=== PATIENT | male | born 1950 | race Caucasian/White ===

== ENCOUNTER 2017-05-14 16:01 | Emergency (ER) | payer MEDICARE ==
[2017-05-14 16:06] VITALS: RESP 18
[2017-05-14] MEDS ORDERED: traMADol 50 MG TAB PO STA (16:48)
[2017-05-14] MEDS ORDERED: METHOCARBAMOL 500 MG TAB PO STA (16:50)
--- NOTE | 2017-05-14 17:10 | ED ---
Fall HPI - General Chief Complaint: Fall Stated Complaint: Fall-Head Pain Time Seen by Provider: 05/14/17 16:42 Source: patient Mode of arrival: wheelchair Limitations: no limitations - History of Present Illness Initial Comments: This a 66-year-old male presents emergency Department chief complaint of fall, neck pain, head pain. Patient states that he was in the bathroom states he went go fix a sock in his knee gave out which is happens on occasion. Patient states that he fell backwards striking the wall with his had states he did reported that in the drywall. Patient denies loss conscious he does complain of mild headache and neck pain. He states he felt some cracking his neck and went down his back. He states he did have some left hip pain but states that has resolved and states he is able to ambulate with no difficulty and no pain. Patient's her prior fusion of the cervical spine is concerned that there may be something abnormal. He denies any weakness of his upper extremities denies any paresthesias denies chest pain, shortness breath. - Related Data Home Medications Medication Instructions Recorded Confirmed Aspirin 81 mg PO HS 03/18/14 11/15/15 Atorvastatin Calcium [Lipitor] 80 mg PO HS 03/18/14 11/15/15 Enalapril/Hydrochlorothiazide 2 tab PO QAM 03/18/14 11/15/15 [Vaseretic 10-25 mg] FLUoxetine HCL [PROzac] 40 mg PO QAM 03/18/14 11/15/15 Metoprolol Succinate (ER) [Toprol 50 mg PO QAM 03/18/14 11/15/15 XL] Previous Rx's Medication Instructions Recorded metFORMIN HCL [Glucophage] 500 mg PO BID #0 03/20/14 HYDROcodone/APAP 7.5-325MG [[place] 1 - 2 each PO Q6HR PRN #90 tab 11/17/15 7.5-325] Famotidine [Pepcid] 20 mg PO BID #1 tablet 11/18/15 INSULIN LISPRO (humaLOG) [humaLOG] 0 unit SQ ACHS vial 11/18/15 INSULIN LISPRO (humaLOG) [humaLOG] 17 unit SQ AC-TID #0 vial 11/18/15 Insulin Detemir [Levemir] 36 unit SQ BID #0 vial 11/18/15 Sennosides-Docusate Sodium 2 each PO HS tab 11/18/15 [Senokot-S] Tamsulosin [Flomax] 0.4 mg PO PC-SUPPER cap.er.24h 11/18/15 Warfarin [Coumadin] 2.5 mg PO DAILY #30 tab 11/18/15 Methocarbamol [Robaxin] 500 mg PO TID PRN #15 tab 05/14/17 Allergies Allergy/AdvReac Type Severity Reaction Status Date / Time codeine Allergy Severe Vomiting Verified 05/14/17 16:06 albuterol AdvReac Rapid Verified 05/14/17 16:06 Heart Rate Penicillins AdvReac Rash/Hives Verified 05/14/17 16:06 Review of Systems ROS Statement: Those systems with pertinent positive or pertinent negative responses have been documented in the HPI. ROS Other: All systems not noted in ROS Statement are negative. Past Medical History Past Medical History: Coronary Artery Disease (CAD), Cancer, Chest Pain / Angina , Heart Failure, Diabetes Mellitus, Hyperlipidemia, Hypertension, Myocardial Infarction ([place]), Pneumonia, Prostate Disorder, Thyroid Disorder Additional Past Medical History / Comment(s): Morbid obesity, coronary artery disease, diabetes mellitus, degenerative arthritis, varicose veins, skin cancer , gout, retinal disease Last Myocardial Infarction Date:: unknown History of Any Multi-Drug Resistant Organisms: None Reported Past Surgical History: Adenoidectomy, Bariatric Surgery, Heart Catheterization With Stent, Tonsillectomy Additional Past Surgical History / Comment(s): vasectomy, lap band, neck fusion , cysts removed from testicles x 2, lypoma removed rt side of abdomen, 11-15-15 TOTAL RT KNEE, SKIN CA REMOVED. Past Anesthesia/Blood Transfusion Reactions: No Reported Reaction Date of Last Stent Placement:: 01/2012 Past Psychological History: Anxiety, Depression Smoking Status: Former smoker Past Alcohol Use History: Occasional Past Drug Use History: None Reported - Past Family History Father Family Medical History: Deep Vein Thrombosis (DVT) Mother Family Medical History: Deep Vein Thrombosis (DVT) Brother(s) Family Medical History: Cancer, Deep Vein Thrombosis (DVT) General Exam Limitations: physical limitation General appearance: alert, in no apparent distress Head exam: Present: atraumatic, normocephalic, normal inspection Eye exam: Present: normal appearance, PERRL, EOMI. Absent: scleral icterus, conjunctival injection, periorbital swelling ENT exam: Present: normal exam, normal oropharynx, mucous membranes moist, TM's normal bilaterally, normal external ear exam Neck exam: Present: normal inspection, tenderness (Mild tenderness), full ROM, other (Patient was not in c-collar in the room at this time, patient was placed in c-collar at this time). Absent: meningismus, lymphadenopathy Respiratory exam: Present: normal lung sounds bilaterally. Absent: respiratory distress, wheezes, rales, rhonchi, stridor Cardiovascular Exam: Present: regular rate, normal rhythm, normal heart sounds. Absent: systolic murmur, diastolic murmur, rubs, gallop, clicks Extremities exam: Present: normal inspection, full ROM, normal capillary refill. Absent: tenderness, pedal edema, joint swelling, calf tenderness Back exam: Present: full ROM. Absent: tenderness, paraspinal tenderness, vertebral tenderness Neurological exam: Present: alert, oriented X3, CN II-XII intact, reflexes normal. Absent: motor sensory deficit Skin exam: Present: warm, dry, intact, normal color. Absent: rash Course Vital Signs 05/14/17 16:04 Temperature 98.1 F Pulse Rate 74 Respiratory 18 Rate Blood Pressure 151/66 O2 Sat by Pulse 97 Oximetry - Reevaluation(s) Reevaluation #1: 05/14/17 18:02 C-collar was removed at CT shows no acute fracture Medical Decision Making - Medical Decision Making 66-year-old male presents emergency from for treatment fall. Patient concerned about his cervical fusion. CT does not show any intracranial bleed or change in the cervical fusion. Patient we discharged at this time he has a normal neurological exam advised to follow-up one to days for recheck and return for any worsening symptoms. Patient did complain of some left hip pain but states that has improved x-ray was offered though declined. - Lab Data Lab Results 05/14/17 Range/Units 17:20 POC Glucose (mg/dL) 245 H (75-99) mg/dL POC Glu Fire Extinguisher Inspector ID MorenoChitra Disposition Clinical Impression: Fall, Neck pain, Head injury Disposition: HOME SELF-CARE Condition: Stable Instructions: Head Injury (ED) Additional Instructions: Please return to the Emergency Department if symptoms worsen or any other concerns. Prescriptions: Methocarbamol [Robaxin] 500 mg PO TID PRN #15 tab PRN Reason: muscle spasms Referrals: Mckenna Tinoco MD [Primary Care Provider] - 1-2 days Time of Disposition: 18:09
[2017-05-14] MEDS ORDERED: ALPRAZolam 0.5 MG TAB PO STA (17:20)
[2017-05-14 17:22] LABS: Glucose,Whole Blood 245 mg/dL (75-99)
--- NOTE | 2017-05-14 18:01 | CT ---
EXAMINATION TYPE: CT brain a[facility] DATE OF EXAM: 05/14/2017 COMPARISON: NONE HISTORY: Fall today with head and neck pain CT DLP: 2217.3 mGycm Automated exposure control for dose reduction was used. TECHNIQUE: CT scan of the head and cervical spine are performed without contrast. FINDINGS: There is mild cerebral cortical atrophy. There is no mass effect nor midline shift. There is no sign of intracranial hemorrhage. The calvarium is intact. There is mucosal thickening in the a nterior ethmoid air cells. There is plate with screws fusing anteriorly the cervical spine from C3 to C6. Vertebra have normal a lignment. There is narrowing at C6-7 disc space with spurring. Facet joints appear intact. I see no f ocal bone destruction. The skull base appears intact. There is narrowing at C2-3 disc space. IMPRESSION: Mild cerebral atrophy. No acute intracranial abnormality. Previous cervical spine fusion surgery. No acute abnormality. Spondylotic changes.
[2017-05-14 18:20] VITALS: BP 141/72; PULSE 63; TEMP 97.9
== END 2017-05-14 18:20 | disposition home or self-care (01) ==
LOC: EC 16:01
DX: S09.90XA Unspecified injury of head, initial encounter (principal); M54.2 Cervicalgia; M54.9 Dorsalgia, unspecified; E78.5 Hyperlipidemia, unspecified; I11.0 Hypertensive heart disease with heart failure; I50.9 Heart failure, unspecified; I25.10 Atherosclerotic heart disease of native coronary artery without angina pectoris; M19.90 Unspecified osteoarthritis, unspecified site; M10.9 Gout, unspecified; N42.9 Disorder of prostate, unspecified; F32.9 Major depressive disorder, single episode, unspecified; F41.9 Anxiety disorder, unspecified; E66.01 Morbid (severe) obesity due to excess calories; I25.2 Old myocardial infarction; Z87.891 Personal history of nicotine dependence; Z79.82 Long term (current) use of aspirin; Z79.899 Other long term (current) drug therapy; Z88.0 Allergy status to penicillin; Z88.5 Allergy status to narcotic agent; Z88.8 Allergy status to other drugs, medicaments and biological substances; Z98.1 Arthrodesis status; Z85.828 Personal history of other malignant neoplasm of skin; Z98.890 Other specified postprocedural states; Z68.42 Body mass index [BMI] 45.0-49.9, adult; W01.198A Fall on same level from slipping, tripping and stumbling with subsequent striking against other object, initial encounter; Y92.002 Bathroom of unspecified non-institutional (private) residence as the place of occurrence of the external cause; Y93.89 Activity, other specified
CPT/HCPCS: 36415; 70450; 72125; 99284

== ENCOUNTER 2019-05-31 23:24 | Inpatient (IN) | payer MEDICARE ==
[2019-05-31] MEDS ORDERED: NITROGLYCERIN SL TABS 0.4 MG TAB SUBLINGUAL STA (23:57)
[2019-05-31] MEDS ORDERED: ASPIRIN 81 MG PO STA (23:57)
--- NOTE | 2019-06-01 00:23 | ED ---
General Adult HPI - General Chief complaint: Shortness of Breath Stated complaint: Sore Throat Time Seen by Provider: 05/31/19 23:56 Source: patient, family Mode of arrival: wheelchair Limitations: no limitations - History of Present Illness Initial comments: Patient is 68-year-old male with history of myocardial infarction is presenting to the emergency department with a chief complaint of shortness of breath sore throat and chest pain. Patient reports sore throat that began about 3 days ago and is gradually increasing severity. Patient denies drooling or swelling of the face. He does report sinus congestion over the same period. Patient also reports shortness of breath that has not one for a long time although he states it has gradually increased in severity over the last few days. Patient reports dyspnea on exertion. He also is reporting some left-sided chest pain that is more sharp in nature without any radiation. He states the pain occurred multiple times throughout the day however it is not there right now upon occurrence, he states he had some lightheadedness and dizziness but denies nausea vomiting or episode of diaphoresis. Patient denies COPD or asthma or smoking. She denies night sweats fevers or chills. Patient does report a nonproductive cough over the last few days. - Related Data Home Medications Medication Instructions Recorded Confirmed Aspirin 81 mg PO HS 03/18/14 11/15/15 Atorvastatin Calcium [Lipitor] 80 mg PO HS 03/18/14 11/15/15 Enalapril/Hydrochlorothiazide 2 tab PO QAM 03/18/14 11/15/15 [Vaseretic 10-25 mg] FLUoxetine HCL [PROzac] 40 mg PO QAM 03/18/14 11/15/15 Metoprolol Succinate (ER) [Toprol 50 mg PO QAM 03/18/14 11/15/15 XL] Previous Rx's Medication Instructions Recorded metFORMIN HCL [Glucophage] 500 mg PO BID #0 03/20/14 HYDROcodone/APAP 7.5-325MG [[place] 1 - 2 each PO Q6HR PRN #90 tab 11/17/15 7.5-325] Famotidine [Pepcid] 20 mg PO BID #1 tablet 11/18/15 INSULIN LISPRO (humaLOG) [humaLOG] 0 unit SQ ACHS vial 11/18/15 INSULIN LISPRO (humaLOG) [humaLOG] 17 unit SQ AC-TID #0 vial 11/18/15 Insulin Detemir (Levemir) [Levemir] 36 unit SQ BID #0 vial 11/18/15 Sennosides-Docusate Sodium 2 each PO HS tab 11/18/15 [Senokot-S] Tamsulosin [Flomax] 0.4 mg PO PC-SUPPER cap.er.24h 11/18/15 Warfarin [Coumadin] 2.5 mg PO DAILY #30 tab 11/18/15 Methocarbamol [Robaxin] 500 mg PO TID PRN #15 tab 05/14/17 Allergies Allergy/AdvReac Type Severity Reaction Status Date / Time codeine Allergy Severe Vomiting Verified 05/31/19 23:54 albuterol AdvReac Rapid Verified 05/31/19 23:54 Heart Rate Penicillins AdvReac Rash/Hives Verified 05/31/19 23:54 Review of Systems ROS Statement: Those systems with pertinent positive or pertinent negative responses have been documented in the HPI. ROS Other: All systems not noted in ROS Statement are negative. Past Medical History Past Medical History: Coronary Artery Disease (CAD), Cancer, Chest Pain / Angina, Heart Failure, Diabetes Mellitus, Hyperlipidemia, Hypertension, Myocardial Infarction ([place]), Pneumonia, Prostate Disorder, Thyroid Disorder Additional Past Medical History / Comment(s): Morbid obesity, coronary artery disease, diabetes mellitus, degenerative arthritis, varicose veins, skin cancer, gout, retinal disease Last Myocardial Infarction Date:: unknown History of Any Multi-Drug Resistant Organisms: None Reported Past Surgical History: Adenoidectomy, Bariatric Surgery, Heart Catheterization With Stent, Tonsillectomy Additional Past Surgical History / Comment(s): vasectomy, lap band, neck fusion, cysts removed from testicles x 2, lypoma removed rt side of abdomen, 11-15-15 TOTAL RT KNEE, SKIN CA REMOVED. Past Anesthesia/Blood Transfusion Reactions: No Reported Reaction Date of Last Stent Placement:: 01/2012 Past Psychological History: Anxiety, Depression Smoking Status: Former smoker Past Alcohol Use History: Occasional Past Drug Use History: None Reported - Past Family History Father Family Medical History: Deep Vein Thrombosis (DVT) Mother Family Medical History: Deep Vein Thrombosis (DVT) Brother(s) Family Medical History: Cancer, Deep Vein Thrombosis (DVT) General Exam Limitations: no limitations General appearance: alert, in no apparent distress, obese Head exam: Present: atraumatic, normocephalic, normal inspection Eye exam: Present: normal appearance, PERRL, EOMI Pupils: Present: normal accommodation ENT exam: Present: normal exam, mucous membranes moist. Absent: normal oropharynx (Tonsil erythema but no exudates) Neck exam: Present: normal inspection, full ROM, lymphadenopathy Respiratory exam: Present: normal lung sounds bilaterally Cardiovascular Exam: Present: regular rate, normal rhythm, normal heart sounds Extremities exam: Present: normal inspection, full ROM, normal capillary refill, other (+2 ulnar and radial pulses bilaterally.) Back exam: Present: normal inspection, full ROM Neurological exam: Present: alert, oriented X3 Psychiatric exam: Present: normal affect, normal mood Skin exam: Present: warm, dry, intact, normal color Course Vital Signs 05/31/19 06/01/19 06/01/19 23:48 00:09 01:30 Temperature 98.7 F Pulse Rate 90 85 Respiratory 24 20 20 Rate Blood Pressure 125/64 149/84 O2 Sat by Pulse 93 L 96 Oximetry Medical Decision Making - Medical Decision Making Patient is 68-year-old male with history of myocardial infarction presenting to emergency Department with a chief complaint of shortness of breath, sore throat and chest pain. On exam patient does have erythematous tonsils but no exudates. Patient is present with atypical chest pain with typical features. EKG compared to the last one and is the same. Left axis deviation with no ST changes. EKG shows mild atelectasis at the left lung base. Upon initial arrival patient given Nitropaste and aspirin. A reevaluation patient reports the chest pain is resolved. Initial troponin is negative. Patient obese, diabetic, hypertension and hyperlipidemia with positive family history of cardiac vascular disease. No smoker. He also states the shortness of breath remy s resolved after he was administered 2 L of oxygen. Patient has a heart score of 5. Patient will be admitted for observation. Case discussed with Dr. Lara. - Lab Data Result diagrams: 06/01/19 00:20 06/01/19 00:20 Lab Results 06/01/19 06/01/19 06/01/19 Range/Units 00:20 00:20 00:20 WBC 15.5 H (3.8-10.6) k/uL RBC 4.54 (4.30-5.90) m/uL Hgb 14.1 (13.0-17.5) gm/dL Hct 40.8 (39.0-53.0) % MCV 89.7 (80.0-100.0) fL MCH 31.0 (25.0-35.0) pg MCHC 34.6 (31.0-37.0) g/dL RDW 14.1 (11.5-15.5) % Plt Count 251 (150-450) k/uL Neutrophils % 79 % Lymphocytes % 10 % Monocytes % 7 % Eosinophils % 2 % Basophils % 0 % Neutrophils # 12.2 H (1.3-7.7) k/uL Lymphocytes # 1.6 (1.0-4.8) k/uL Monocytes # 1.1 H (0-1.0) k/uL Eosinophils # 0.2 (0-0.7) k/uL Basophils # 0.0 (0-0.2) k/uL PT 10.7 (9.0-12.0) sec INR 1.0 (<1.2) APTT 25.0 (22.0-30.0) sec D-Dimer 0.38 (<0.60) mg/L FEU Sodium 135 L (137-145) mmol/L Potassium 4.6 (3.5-5.1) mmol/L Chloride 99 (98-107) mmol/L Carbon Dioxide 27 (22-30) mmol/L Anion Gap 9 mmol/L BUN 31 H (9-20) mg/dL Creatinine 0.73 (0.66-1.25) mg/dL Est GFR (CKD-EPI)AfAm >90 (>60 ml/min/1.73 sqM) Est GFR (CKD-EPI)NonAf >90 (>60 ml/min/1.73 sqM) Glucose 152 H (74-99) mg/dL Calcium 9.8 (8.4-10.2) mg/dL Magnesium 1.9 (1.6-2.3) mg/dL Total Bilirubin 1.6 H (0.2-1.3) mg/dL AST 25 (17-59) U/L ALT 24 (21-72) U/L Alkaline Phosphatase 80 (38-126) U/L Troponin I (0.000-0.034) ng/mL Total Protein 7.1 (6.3-8.2) g/dL Albumin 3.8 (3.5-5.0) g/dL Group A Strep Rapid (Negative) 06/01/19 06/01/19 Range/Units 00:20 00:30 WBC (3.8-10.6) k/uL RBC (4.30-5.90) m/uL Hgb (13.0-17.5) gm/dL Hct (39.0-53.0) % MCV (80.0-100.0) fL MCH (25.0-35.0) pg MCHC (31.0-37.0) g/dL RDW (11.5-15.5) % Plt Count (150-450) k/uL Neutrophils % % Lymphocytes % % Monocytes % % Eosinophils % % Basophils % % Neutrophils # (1.3-7.7) k/uL Lymphocytes # (1.0-4.8) k/uL Monocytes # (0-1.0) k/uL Eosinophils # (0-0.7) k/uL Basophils # (0-0.2) k/uL PT (9.0-12.0) sec INR (<1.2) APTT (22.0-30.0) sec D-Dimer (<0.60) mg/L FEU Sodium (137-145) mmol/L Potassium (3.5-5.1) mmol/L Chloride (98-107) mmol/L Carbon Dioxide (22-30) mmol/L Anion Gap mmol/L BUN (9-20) mg/dL Creatinine (0.66-1.25) mg/dL Est GFR (CKD-EPI)AfAm (>60 ml/min/1.73 sqM) Est GFR (CKD-EPI)NonAf (>60 ml/min/1.73 sqM) Glucose (74-99) mg/dL Calcium (8.4-10.2) mg/dL Magnesium (1.6-2.3) mg/dL Total Bilirubin (0.2-1.3) mg/dL AST (17-59) U/L ALT (21-72) U/L Alkaline Phosphatase (38-126) U/L Troponin I <0.012 (0.000-0.034) ng/mL Total Protein (6.3-8.2) g/dL Albumin (3.5-5.0) g/dL Group A Strep Rapid Negative (Negative) Disposition Clinical Impression: Shortness of breath on exertion, Chest pain Disposition: ADMITTED IP TO THIS HOSP Condition: Stable Instructions (If sedation given, give patient instructions): Angina (ED) Additional Instructions: Patient will be admitted Is patient prescribed a controlled substance at d/c from ED?: No Referrals: Sixto Vernon MD [Primary Care Provider] - 1-2 days Time of Disposition: 02:13
[2019-06-01] MEDS ORDERED: NITROGLYCERIN OINT 1 INCH/GM PACKET TOPICAL STA (00:33)
[2019-06-01 00:40] LABS: Basophils % (A) 0 %; Eosinophils # (A) 0.2 k/uL (0-0.7); Eosinophils % (A) 2 %; HCT 40.8 % (39.0-53.0); HGB 14.1 gm/dL (13.0-17.5); Lymphocytes # (A) 1.6 k/uL (1.0-4.8); Lymphocytes % (A) 10 %; MCHC 34.6 g/dL (31.0-37.0); MCV 89.7 fL (80.0-100.0); Mean Platelet Volume 7.8; Monocytes # (A) 1.1 k/uL (0-1.0); Monocytes % (A) 7 %; Neutrophils # (A) 12.2 k/uL (1.3-7.7); Neutrophils % (A) 79 %; Platelet Count 251 k/uL (150-450); RBC 4.54 m/uL (4.30-5.90); RDW 14.1 % (11.5-15.5); WBC 15.5 k/uL (3.8-10.6)
[2019-06-01 00:44] LABS: D-Dimer 0.38 mg/L FEU (<0.60); Prothrombin Time 10.7 sec (9.0-12.0)
[2019-06-01 00:49] LABS: ALT 24 U/L (21-72); AST 25 U/L (17-59); African American GFR (CKD) >90 (>60 ml/min/1.73 sqM); Albumin 3.8 g/dL (3.5-5.0); Alkaline Phosphatase 80 U/L (38-126); Anion Gap 9 mmol/L; Blood Urea Nitrogen 31 mg/dL (9-20); Calcium 9.8 mg/dL (8.4-10.2); Carbon Dioxide 27 mmol/L (22-30); Chloride 99 mmol/L (98-107); Glucose 152 mg/dL (74-99); Magnesium 1.9 mg/dL (1.6-2.3); Non-African American GFR(CKD) >90 (>60 ml/min/1.73 sqM); Potassium 4.6 mmol/L (3.5-5.1); Sodium 135 mmol/L (137-145); Total Bilirubin 1.6 mg/dL (0.2-1.3); Total Protein 7.1 g/dL (6.3-8.2)
--- NOTE | 2019-06-01 00:51 | XR ---
EXAMINATION TYPE: XR chest 2V DATE OF EXAM: 06/01/2019 COMPARISON: 11/16/2015 HISTORY: Chest pain TECHNIQUE: Frontal and lateral views of the chest are obtained. FINDINGS: There is some linear density at the left lung base. Heart size is normal. There is no hear t failure. There is no pleural effusion. There are chest leads. Bony thorax is intact. IMPRESSION: Mild subsegmental atelectasis left lung base. Normal heart. No significant change compar ed to old exam.
[2019-06-01] MEDS ORDERED: ALPRAZolam 0.5 MG TAB PO STA (03:39)
[2019-06-01] MEDS ORDERED: traMADol 50 MG TAB PO STA (03:39)
[2019-06-01] MEDS ORDERED: metFORMIN 500 MG TAB PO STA (03:40)
[2019-06-01] MEDS ORDERED: NITROGLYCERIN SL TABS 0.4 MG TAB SUBLINGUAL PRN ×2 (04:03→09:16)
[2019-06-01] MEDS ORDERED: HYDROcodone/APAP 7.5-325MG 1 EACH TAB PO PRN (04:08)
[2019-06-01] MEDS ORDERED: METHOCARBAMOL 500 MG TAB PO PRN (04:08)
[2019-06-01 04:43] LABS: Glucose,Whole Blood 194 mg/dL (75-99)
[2019-06-01 06:55] LABS: Glucose,Whole Blood 180 mg/dL (75-99)
[2019-06-01] MEDS: INSULIN ASPART (NovoLOG) 100 UNIT/ML VIAL SQ SCH ×7 (08:41→22:48)
[2019-06-01] MEDS: HYDROCHLOROTHIAZIDE 25 MG TAB PO SCH (08:51)
[2019-06-01] MEDS: METOPROLOL SUCCINATE (ER) 50 MG TAB.ER.24H PO SCH (08:52)
[2019-06-01] MEDS: LISINOPRIL 20 MG TAB PO SCH (08:52)
[2019-06-01] MEDS ORDERED: FLUoxetine HCL 20 MG CAP PO SCH (09:00)
[2019-06-01] MEDS ORDERED: FAMOTIDINE 20 MG TAB PO SCH (09:00)
[2019-06-01] MEDS ORDERED: tiZANidine 4 MG TAB PO PRN (09:16)
[2019-06-01] MEDS ORDERED: INSULIN ASPART (NovoLOG) 100 UNIT/ML VIAL SQ ONE (09:21)
--- NOTE | 2019-06-01 11:14 | P.HPIM ---
History of Present Illness H&P Date: 06/01/19 Chief Complaint: shortness of breath Patient is 68-year-old male patient of Dr. Vernon with history of myocardial infarction and coronary artery disease status post 3 cardiac stent, diabetes mellitus type 2 insulin requiring, hypertension, hyperlipidemia, osteoarthritis, gout, skin cancer, morbid obesity status post lap band, obstructive sleep apnea on CPAP, remote history of tobacco use, recurrent depression. Patient also follows with from pulmonary medicine and Dr. Wise from endocrinology. He last saw Dr. Meléndez in the office in November and had echocardiogram done at that time. Patient states that yesterday he became real weak while he was sitting. He was complaining of a sore throat for 3-4 days. No fever or chills. He did have some sweats. He got up to walk from the living room to the kitchen and became very dizzy with difficulty breathing and he checked his oxygen saturation which it dropped down to 82%. He continued to not feel well and decided around 10 AM to come into the hospital for evaluation. He also experienced left-sided chest pain that did not seem to be related to activity. He has had shortness of breath with ambulation for the last couple of days. He complains of a cough. No calf tenderness. He complains of backache. Patient presented to [facility] emergency center for evaluation. He was afebrile, heart rate 90, blood pressure 125/64, pulse ox 93% on room air. WBC 15.5, hemoglobin 14.1. D-dimer 0.38. Electrolytes essentially normal, creatinine 0.73, total bilirubin 1.6 and other liver function tests within normal limits. Blood sugar 152. Troponin negative. Group A strep rapid screen negative. Patient was started on Nitropaste and aspirin. Shortness of breath resolved with oxygen. Patient placed on the cardiac stepdown unit and cardiology consult requested. Repeat troponin negative. Consult added for cardiology and pulmonary medicine. Review of Systems Constitutional: Reports sweats, Denies chills, Denies fever Eyes: denies blurred vision, denies pain Ears, nose, mouth and throat: Reports sore throat, Reports vertigo, Denies dysphagia, Denies nasal congestion, Denies nasal discharge Cardiovascular: Reports chest pain, Reports decreased exercise tolerance, Repo rts dyspnea on exertion, Reports leg edema, Reports shortness of breath, Denies edema, Denies lightheadedness, Denies syncope Respiratory: Reports cough, Reports dyspnea, Reports sleep apnea, Denies excessive sputum, Denies hemoptysis, Denies home oxygen Gastrointestinal: Denies abdominal pain, Denies diarrhea, Denies loss of appetite, Denies nausea, Denies vomiting Genitourinary: Denies dysuria, Denies urinary retention Musculoskeletal: Reports muscle weakness, Denies frequent falls, Denies gait dysfunction, Denies myalgias Integumentary: Denies pruritus, Denies rash, Denies wounds Neurological: Denies change in mentation, Denies change in speech, Denies numbness, Denies weakness Psychiatric: Denies anxiety, Denies depression Endocrine: Denies fatigue, Denies weight change Past Medical History Past Medical History: Coronary Artery Disease (CAD), Cancer, Chest Pain / Angina, Heart Failure, Diabetes Mellitus, Hyperlipidemia, Hypertension, Myocardi al Infarction ([place]), Pneumonia, Prostate Disorder, Thyroid Disorder Additional Past Medical History / Comment(s): Morbid obesity, coronary artery disease, diabetes mellitus, degenerative arthritis, varicose veins, skin cancer, gout, retinal disease Last Myocardial Infarction Date:: unknown History of Any Multi-Drug Resistant Organisms: None Reported Past Surgical History: Adenoidectomy, Bariatric Surgery, Heart Catheterization With Stent, Tonsillectomy Additional Past Surgical History / Comment(s): vasectomy, lap band, neck fusion, cysts removed from testicles x 2, lypoma removed rt side of abdomen, 11-14-16 TOTAL RT KNEE, SKIN CA REMOVED. Past Anesthesia/Blood Transfusion Reactions: No Reported Reaction Date of Last Stent Placement:: 01/2012 Past Psychological History: Anxiety, Depression Smoking Status: Former smoker Past Alcohol Use History: Occasional Additional Past Alcohol Use History / Comment(s): Patient was a smoker of one pack per day for 33 years. He denies any alcohol use or abuse. He uses CPAP with nasal pillow for obstructive sleep apnea. Past Drug Use History: None Reported - Past Family History Father Family Medical History: Deep Vein Thrombosis (DVT) Additional Family Medical History / Comment(s): Father at age 76 from stroke. Mother Family Medical History: Deep Vein Thrombosis (DVT) Additional Family Medical History / Comment(s): Mother at age 83 from a stroke with history of valvular heart disease. Brother(s) Family Medical History: Cancer, Deep Vein Thrombosis (DVT) Additional Family Medical History / Comment(s): Patient has 1 brother that at age 83 from lung cancer with history of smoking. Sister(s) Additional Family Medical History / Comment(s): Patient has 1 sister at age 83 from Alzheimer's dementia. Daughter(s) Additional Family Medical History / Comment(s): Patient has 2 daughters with no major medical problems. Medications and Allergies Home Medications Medication Instructions Recorded Confirmed Type Aspirin 81 mg PO HS 03/18/14 11/15/15 History Atorvastatin Calcium [Lipitor] 80 mg PO HS 03/18/14 11/15/15 History Enalapril/Hydrochlorothiazide 2 tab PO QAM 03/18/14 11/15/15 History [Vaseretic 10-25 mg] Metoprolol Succinate (ER) [Toprol 50 mg PO QAM 03/18/14 11/15/15 History XL] Tamsulosin [Flomax] 0.4 mg PO PC-SUPPER cap.er.24h 11/18/15 Rx ALPRAZolam [Xanax] 0.5 mg PO BID PRN 06/01/19 06/01/19 History Canagliflozin [Invokana] 300 mg PO QAM 06/01/19 06/01/19 History FLUoxetine HCL [PROzac] 20 mg PO BID 06/01/19 06/01/19 History Fluticasone Nasal [place] [Flonase 2 spray EA NOSTRIL DAILY 06/01/19 06/01/19 History Nasal [place]] INSULIN LISPRO (humaLOG) [humaLOG] 10 unit SQ AC-TID 06/01/19 06/01/19 History Insulin Detemir (Levemir) [Levemir] 30 unit SQ HS 06/01/19 06/01/19 History Meloxicam 15 mg PO DAILY 06/01/19 06/01/19 History Nitroglycerin Sl Tabs [Nitrostat] 0.4 mg SUBLINGUAL Q5M PRN 06/01/19 06/01/19 History Pioglitazone [Actos] 15 mg PO HS 06/01/19 06/01/19 History metFORMIN HCL [Glucophage] 1,000 mg PO BID 06/01/19 06/01/19 History tiZANidine HCL 2 mg PO DAILY PRN 06/01/19 06/01/19 History traMADol HCL 50 mg PO BID 06/01/19 06/01/19 History Allergies Allergy/AdvReac Type Severity Reaction Status Date / Time codeine AdvReac Severe Vomiting Verified 06/01/19 08:58 albuterol AdvReac Rapid Verified 06/01/19 08:58 Heart Rate Penicillins AdvReac Rash/Hives Verified 06/01/19 08:58 Physical Exam Vitals: Vital Signs Temp Pulse Pulse Resp BP BP Pulse Ox 06/01/19 06:48 98.4 F 66 20 136/61 92 L 06/01/19 03:47 86 20 109/68 97 06/01/19 01:30 85 20 149/84 96 06/01/19 00:09 20 05/31/19 23:48 98.7 F 90 24 125/64 93 L Intake and Output 05/31/19 06/01/19 06/01/19 22:59 06:59 14:59 Other: Weight 154.221 kg Gen: This is a 68-year-old morbidly obese male. Patient is resting in bed and appears to be comfortable and in no acute distress. HEENT: Head is atraumatic, normocephalic. Pupils equal, round. Sclerae is anicteric. NECK: Supple. No JVD. No lymphadenopathy. No thyromegaly. LUNGS: Decreased lung sounds but clear to auscultation. No wheezes or rhonchi. No intercostal retractions. HEART: Regular rate and rhythm. No murmur. ABDOMEN: Soft. Bowel sounds are present. No masses. No tenderness. EXTREMITIES: No pedal edema. No calf tenderness. NEUROLOGICAL: Patient is awake, alert and oriented x3. Cranial nerves 2 through 12 are grossly intact. Results CBC & Chem 7: 06/01/19 00:20 06/01/19 00:20 Labs: Abnormal Lab Results - Last 24 Hours (Table) 06/01/19 06/01/19 06/01/19 Range/Units 00:20 00:20 04:41 WBC 15.5 H (3.8-10.6) k/uL Neutrophils # 12.2 H (1.3-7.7) k/uL Monocytes # 1.1 H (0-1.0) k/uL Sodium 135 L (137-145) mmol/L BUN 31 H (9-20) mg/dL Glucose 152 H (74-99) mg/dL POC Glucose (mg/dL) 194 H (75-99) mg/dL Total Bilirubin 1.6 H (0.2-1.3) mg/dL 06/01/19 Range/Units 06:53 WBC (3.8-10.6) k/uL Neutrophils # (1.3-7.7) k/uL Monocytes # (0-1.0) k/uL Sodium (137-145) mmol/L BUN (9-20) mg/dL Glucose (74-99) mg/dL POC Glucose (mg/dL) 180 H (75-99) mg/dL Total Bilirubin (0.2-1.3) mg/dL Thrombosis Risk Factor Assmnt - DVT/VTE Prophylaxis DVT/VTE Prophylaxis: Pharmacologic Prophylaxis ordered Assessment and Plan Plan: 1. Acute on chronic hypoxic respiratory failure most likely secondary to obstructive sleep apnea and obesity hypoventilation syndrome and possible pulmonary hypertension. Continue oxygen therapy. Patient uses CPAP at night or whenever sleeping. Consult with Dr. Kay. 2. Chest pain and shortness of breath. Normal troponins. Cardiology consult. Continue aspirin 81 mg daily, Lipitor 80 mg at bedtime, metoprolol succinate 50 mg daily, nitroglycerin sublingual. Echocardiogram, repeat troponin, lipid panel. 3. Sore throat with leukocytosis. Strep screen has been negative. Throat culture in progress. Influenza testing. 4. History of coronary artery disease with coronary stenting. Continue as in #1. 3. Diabetes mellitus type 2, insulin requiring. 4. Hypertension. Continue hydrochlorothiazide 50 mg daily, lisinopril 40 mg daily, Toprol-XL. 5. Hyperlipidemia. Continue statin. Nexium diabetes mellitus type 2, insulin requiring. Continue Levemir 30 units at bedtime, Humalog scale. Metformin is on hold and invoke onto is not available in the hospital. Continue Actos 15 mg at bedtime. 6. Seasonal ALLERGIES. Continue Flonase. 7. Benign prostatic hypertrophy. Continue Flomax or 0.4 mg daily. Continue Xanax or 0.5 mg twice daily as needed, Prozac 20 mg twice daily. 8. Chronic back pain. Continue tramadol 50 mg twice daily, Zanaflex 2 mg daily as needed. 9. DVT prophylaxis. Heparin subcu. 10. GI prophylaxis. Pepcid. Patient will be admitted to the hospital for a minimum of 2 night stay. Discharge plan: Most likely return home. PT and OT added. Impression and plan of care have been directed as dictated by the signing physician. Lexii Browne nurse practitioner acting as scribe for signing physician.
--- NOTE | 2019-06-01 11:28 | P.CRDCN ---
History of Present Illness Consult date: 06/01/19 Requesting physician: Alejandro Lambert Reason for Consult (text): chest pain Chief complaint: sore throat, SOB, fatigue, low O2 sat History of present illness: This is a pleasant 68-year-old gentleman who follows with Dr. Meléndez in the office. Has a history of CAD with prior stenting in the past, hypertension, hyperlipidemia, diabetes. Presented to the emergency department with complaints of 4-5 day history of sore throat with shortness of breath on exertion and fatigue. He was prompted to the present emergency department after checking his oxygen saturation on his cell phone and was repeatedly getting readings in the 82-84% range. His x-ray and admission showed mild subsegmental atelectasis left base, normal heart, no significant change compared to old exam. EKG showed normal sinus rhythm with left axis deviation with no ST-T wave changes indicative of ischemia. After presentation to the emergency department patient incidentally mentioned some intermittent left-sided chest discomfort lasting less than 1 minute at a time but occurring several times an hour random in occurrence with no aggravating or relieving factors and no associated symptoms. Troponins have been negative 2, d-dimer was negative, white blood cell count was elevated at 15,500, BUN 31, creatinine 0.73. Upon examination, patient is resting comfortably in bed. Continues to complain of significant shortness of breath and fatigue with exertion as well as significant sore throat making it difficult to swallow. Influenza and strep swabs have been negative. Vital signs have been stable with O2 sat 96% on 2 L. Past Medical History Past Medical History: Coronary Artery Disease (CAD), Cancer, Chest Pain / Angina, Heart Failure, Diabetes Mellitus, Hyperlipidemia, Hypertension, Myocardial Infarction ([place]), Pneumonia, Prostate Disorder, Thyroid Disorder Additional Past Medical History / Comment(s): Morbid obesity, coronary artery disease, diabetes mellitus, degenerative arthritis, varicose veins, skin cancer, gout, retinal disease Last Myocardial Infarction Date:: unknown History of Any Multi-Drug Resistant Organisms: None Reported Past Surgical History: Adenoidectomy, Bariatric Surgery, Heart Catheterization With Stent, Tonsillectomy Additional Past Surgical History / Comment(s): vasectomy, lap band, neck fusion, cysts removed from testicles x 2, lypoma removed rt side of abdomen, 11-15-15 TOTAL RT KNEE, SKIN CA REMOVED. Past Anesthesia/Blood Transfusion Reactions: No Reported Reaction Date of Last Stent Placement:: 01/2012 Past Psychological History: Anxiety, Depression Smoking Status: Former smoker Past Alcohol Use History: Occasional Additional Past Alcohol Use History / Comment(s): Patient was a smoker of one pack per day for 33 years. He denies any alcohol use or abuse. He uses CPAP with nasal pillow for obstructive sleep apnea. Past Drug Use History: None Reported - Past Family History Father Family Medical History: Deep Vein Thrombosis (DVT) Additional Family Medical History / Comment(s): Father at age 76 from stroke. Mother Family Medical History: Deep Vein Thrombosis (DVT) Additional Family Medical History / Comment(s): Mother at age 83 from a stroke with history of valvular heart disease. Brother(s) Family Medical History: Cancer, Deep Vein Thrombosis (DVT) Additional Family Medical History / Comment(s): Patient has 1 brother that at age 83 from lung cancer with history of smoking. Sister(s) Additional Family Medical History / Comment(s): Patient has 1 sister at age 83 from Alzheimer's dementia. Daughter(s) Additional Family Medical History / Comment(s): Patient has 2 daughters with no major medical problems. Medications and Allergies Home Medications Medication Instructions Recorded Confirmed Type Aspirin 81 mg PO HS 03/18/14 06/01/19 History Atorvastatin Calcium [Lipitor] 80 mg PO HS 03/18/14 06/01/19 History Enalapril/Hydrochlorothiazide 2 tab PO QAM 03/18/14 06/01/19 History [Vaseretic 10-25 mg] Metoprolol Succinate (ER) [Toprol 50 mg PO QAM 03/18/14 06/01/19 History XL] Tamsulosin [Flomax] 0.4 mg PO PC-SUPPER cap.er.24h 11/18/15 06/01/19 Rx ALPRAZolam [Xanax] 0.5 mg PO BID PRN 06/01/19 06/01/19 History Canagliflozin [Invokana] 300 mg PO QAM 06/01/19 06/01/19 History FLUoxetine HCL [PROzac] 20 mg PO BID 06/01/19 06/01/19 History Fluticasone Nasal [place] [Flonase 2 spray EA NOSTRIL DAILY 06/01/19 06/01/19 History Nasal [place]] INSULIN LISPRO (humaLOG) [humaLOG] 10 unit SQ AC-TID 06/01/19 06/01/19 History Insulin Detemir (Levemir) [Levemir] 30 unit SQ HS 06/01/19 06/01/19 History Meloxicam 15 mg PO DAILY 06/01/19 06/01/19 History Nitroglycerin Sl Tabs [Nitrostat] 0.4 mg SUBLINGUAL Q5M PRN 06/01/19 06/01/19 History Pioglitazone [Actos] 15 mg PO HS 06/01/19 06/01/19 History metFORMIN HCL [Glucophage] 1,000 mg PO BID 06/01/19 06/01/19 History tiZANidine HCL 2 mg PO DAILY PRN 06/01/19 06/01/19 History traMADol HCL 50 mg PO BID 06/01/19 06/01/19 History Allergies Allergy/AdvReac Type Severity Reaction Status Date / Time codeine AdvReac Severe Vomiting Verified 06/01/19 08:58 albuterol AdvReac Rapid Verified 06/01/19 08:58 Heart Rate Penicillins AdvReac Rash/Hives Verified 06/01/19 08:58 Physical Exam Vitals: Vital Signs Temp Pulse Pulse Resp BP BP Pulse Ox 06/01/19 11:03 98.8 F 63 16 106/62 96 06/01/19 10:30 96 06/01/19 08:00 98.7 F 88 20 122/81 90 L 06/01/19 06:48 98.4 F 66 20 136/61 92 L 06/01/19 03:47 86 20 109/68 97 06/01/19 01:30 85 20 149/84 96 06/01/19 00:09 20 05/31/19 23:48 98.7 F 90 24 125/64 93 L Intake and Output 05/31/19 06/01/19 06/01/19 22:59 06:59 14:59 Intake Total 420 Balance 420 Intake: Oral 420 Other: Weight 154.221 kg PHYSICAL EXAMINATION: HEENT: Head is atraumatic, normocephalic. Pupils equal, round. Neck is supple. There is no elevated jugular venous pressure. HEART EXAMINATION: Heart sounds regular, S1 and S2 normal. No murmur or gallop heard. CHEST EXAMINATION: Lungs are clear to auscultation and precussion. No chest wall tenderness is noted on palpation or with deep breathing. ABDOMEN: Soft, obese, nontender. Bowel sounds are heard. No organomegaly noted. EXTREMITIES: 2+ peripheral pulses with no evidence of peripheral edema and no calf tenderness noted. NEUROLOGIC patient is awake, alert and oriented x3. . Results 06/01/19 00:20 06/01/19 00:20 Cardiac Enzymes 06/01/19 06/01/19 06/01/19 Range/Units 00:20 00:20 05:38 AST 25 (17-59) U/L Troponin I <0.012 <0.012 (0.000-0.034) ng/mL Coagulation 06/01/19 Range/Units 00:20 PT 10.7 (9.0-12.0) sec APTT 25.0 (22.0-30.0) sec CBC 06/01/19 Range/Units 00:20 WBC 15.5 H (3.8-10.6) k/uL RBC 4.54 (4.30-5.90) m/uL Hgb 14.1 (13.0-17.5) gm/dL Hct 40.8 (39.0-53.0) % Plt Count 251 (150-450) k/uL Comprehensive Metabolic Panel 06/01/19 Range/Units 00:20 Sodium 135 L (137-145) mmol/L Potassium 4.6 (3.5-5.1) mmol/L Chloride 99 (98-107) mmol/L Carbon Dioxide 27 (22-30) mmol/L BUN 31 H (9-20) mg/dL Creatinine 0.73 (0.66-1.25) mg/dL Glucose 152 H (74-99) mg/dL Calcium 9.8 (8.4-10.2) mg/dL AST 25 (17-59) U/L ALT 24 (21-72) U/L Alkaline Phosphatase 80 (38-126) U/L Total Protein 7.1 (6.3-8.2) g/dL Albumin 3.8 (3.5-5.0) g/dL Current Medications Generic Name Dose Route Start Last Admin Trade Name Freq PRN Reason Stop Dose Admin Alprazolam 0.5 mg 06/01/19 09:16 Xanax PO BID PRN Anxiety Aspirin 81 mg 06/01/19 21:00 Aspirin PO HS [facility] Atorvastatin Calcium 80 mg 06/01/19 21:00 Lipitor PO HS [facility] Famotidine 20 mg 06/02/19 09:00 Pepcid PO DAILY [facility] Fluoxetine HCl 20 mg 06/02/19 09:00 Prozac PO BID [facility] Fluticasone Propionate 2 spray 06/02/19 09:00 Flonase Nasal [place] EA NOSTRIL DAILY [facility] Heparin Sodium (Porcine) 5,000 unit 06/01/19 21:00 Heparin SQ Q12HR [facility] Hydrochlorothiazide 50 mg 06/01/19 09:00 06/01/19 08:51 Hydrodiuril PO 50 mg QAM [facility] Administration Insulin Aspart 0 unit 06/01/19 07:30 06/01/19 09:26 Novolog SQ 4 unit ACHS [facility] Administration Protocol Insulin Aspart 10 unit 06/01/19 12:30 Novolog SQ AC-TID [facility] Insulin Detemir 30 unit 06/01/19 21:00 Levemir SQ HS [facility] Lisinopril 40 mg 06/01/19 09:00 06/01/19 08:52 Zestril PO 40 mg QAM [facility] Administration Metoprolol Succinate 50 mg 06/01/19 09:00 06/01/19 08:52 Toprol Xl PO 50 mg QAM [facility] Administration Nitroglycerin 0.4 mg 06/01/19 09:16 Nitrostat SUBLINGUAL Q5M PRN Chest Pain Pioglitazone HCl 15 mg 06/01/19 21:00 Actos PO HS [facility] Tamsulosin HCl 0.4 mg 06/01/19 18:30 Flomax PO PC-SUPPER [facility] Tizanidine HCl 2 mg 06/01/19 09:16 Zanaflex PO DAILY PRN Muscle Spasm Tramadol HCl 50 mg 06/01/19 21:00 Ultram PO BID [facility] Intake and Output 05/31/19 06/01/19 06/01/19 22:59 06:59 14:59 Intake Total 420 Balance 420 Intake: Oral 420 Other: Weight 154.221 kg 06/01/19 00:20 06/01/19 00:20 EKG Interpretations (text) Sinus rhythm Assessment and Plan Assessment: #1 symptoms of sore throat, shortness of breath and fatigue, likely secondary to viral infection #2 atypical chest pain #3 history of CAD with prior stenting #4 hypertension #5 hyperlipidemia #6 diabetes Plan: From cardiology's perspective, we will obtain a 2-D echo with Doppler. Symptoms of chest pain are atypical. Medications were reviewed and we will continue the same. Increase activity. Depending on patient's symptoms and echocardiogram results patient will likely be discharged tomorrow and will keep his follow-up with Dr. Meléndez on the 17th of this month. [employer] note has been reviewed, I agree with a documented findings and plan of care. Patient was seen and examined.
[2019-06-01 11:52] LABS: Glucose,Whole Blood 166 mg/dL (75-99)
--- NOTE | 2019-06-01 14:30 | P.CNPUL ---
History of Present Illness Consult date: 06/01/19 Reason for consult: dyspnea, cough, COPD, hypoxemia, obstructive sleep apnea Chief complaint: Shortness of breath with cough started with cold upper respiratory 5 days a History of present illness: This is a 68-year-old male with the history of obstructive sleep apnea not on oxygen but using CPAP on a regular basis well to me from the office he also has a prior medical history significant for NE he presented into emergency department with 5 day history of shortness of breath sore throat and chest pain. Patient reports sore throat that began about 3 days ago and is gradually increasing severity. Patient denies drooling or swelling of the face. He does report sinus congestion over the same period. Patient also reports shortness of breath that has not one for a long time although he states it has gradually in creased in severity over the last few days. Patient reports dyspnea on exertion. He also is reporting some left-sided chest pain that is more sharp in nature without any radiation. He states the pain occurred multiple times throughout the day however it is not there right now upon occurrence, he states he had some lightheadedness and dizziness but denies nausea vomiting or episode of diaphoresis. Patient denies COPD or asthma or smoking. She denies night sweats fevers or chills. Patient does report a nonproductive cough over the last few days. Patient oxygen saturation was low has been on supplemental oxygen ranging about 88-90%, which is new however he is feeling better today reviewed. Chest prior to discharge from [facility], HIS CHEST X-RAY SUGGESTIVE OF DEVELOPING PNEUMONIA AND LEFT LOWER LOBE, HE HAS BEEN EVALUATED BY CARDIOLOGY PLAN IS FOR ECHOCARDIOGRAM TOMORROW Review of Systems All systems: negative Past Medical History Past Medical History: Coronary Artery Disease (CAD), Cancer, Chest Pain / Angina, Heart Failure, Diabetes Mellitus, Hyperlipidemia, Hypertension, Myocardial Infarction (NE), Pneumonia, Prostate Disorder, Thyroid Disorder Additional Past Medical History / Comment(s): Morbid obesity, coronary artery disease, diabetes mellitus, degenerative arthritis, varicose veins, skin cancer, gout, retinal disease Last Myocardial Infarction Date:: unknown History of Any Multi-Drug Resistant Organisms: None Reported Past Surgical History: Adenoidectomy, Bariatric Surgery, Heart Catheterization With Stent, Tonsillectomy Additional Past Surgical History / Comment(s): vasectomy, lap band, neck fusion, cysts removed from testicles x 2, lypoma removed rt side of abdomen, 11-15-15 TOTAL RT KNEE, SKIN CA REMOVED. Past Anesthesia/Blood Transfusion Reactions: No Reported Reaction Date of Last Stent Placement:: 01/2012 Past Psychological History: Anxiety, Depression Smoking Status: Former smoker Past Alcohol Use History: Occasional Additional Past Alcohol Use History / Comment(s): Patient was a smoker of one pack per day for 33 years. He denies any alcohol use or abuse. He uses CPAP with nasal pillow for obstructive sleep apnea. Past Drug Use History: None Reported - Past Family History Father Family Medical History: Deep Vein Thrombosis (DVT) Additional Family Medical History / Comment(s): Father at age 76 from stroke. Mother Family Medical History: Deep Vein Thrombosis (DVT) Additional Family Medical History / Comment(s): Mother at age 83 from a stroke with history of valvular heart disease. Brother(s) Family Medical History: Cancer, Deep Vein Thrombosis (DVT) Additional Family Medical History / Comment(s): Patient has 1 brother that at age 83 from lung cancer with history of smoking. Sister(s) Additional Family Medical History / Comment(s): Patient has 1 sister at age 83 from Alzheimer's dementia. Daughter(s) Additional Family Medical History / Comment(s): Patient has 2 daughters with no major medical problems. Medications and Allergies Home Medications Medication Instructions Recorded Confirmed Type Aspirin 81 mg PO HS 03/18/14 06/01/19 History Atorvastatin Calcium [Lipitor] 80 mg PO HS 03/18/14 06/01/19 History Enalapril/Hydrochlorothiazide 2 tab PO QAM 03/18/14 06/01/19 History [Vaseretic 10-25 mg] Metoprolol Succinate (ER) [Toprol 50 mg PO QAM 03/18/14 06/01/19 History XL] Tamsulosin [Flomax] 0.4 mg PO PC-SUPPER cap.er.24h 11/18/15 06/01/19 Rx ALPRAZolam [Xanax] 0.5 mg PO BID PRN 06/01/19 06/01/19 History Canagliflozin [Invokana] 300 mg PO QAM 06/01/19 06/01/19 History FLUoxetine HCL [PROzac] 20 mg PO BID 06/01/19 06/01/19 History Fluticasone Nasal [place] [Flonase 2 spray EA NOSTRIL DAILY 06/01/19 06/01/19 History Nasal [place]] INSULIN LISPRO (humaLOG) [humaLOG] 10 unit SQ AC-TID 06/01/19 06/01/19 History Insulin Detemir (Levemir) [Levemir] 30 unit SQ HS 06/01/19 06/01/19 History Meloxicam 15 mg PO DAILY 06/01/19 06/01/19 History Nitroglycerin Sl Tabs [Nitrostat] 0.4 mg SUBLINGUAL Q5M PRN 06/01/19 06/01/19 History Pioglitazone [Actos] 15 mg PO HS 06/01/19 06/01/19 History metFORMIN HCL [Glucophage] 1,000 mg PO BID 06/01/19 06/01/19 History tiZANidine HCL 2 mg PO DAILY PRN 06/01/19 06/01/19 History traMADol HCL 50 mg PO BID 06/01/19 06/01/19 History Allergies Allergy/AdvReac Type Severity Reaction Status Date / Time codeine AdvReac Severe Vomiting Verified 06/01/19 08:58 albuterol AdvReac Rapid Verified 06/01/19 08:58 Heart Rate Penicillins AdvReac Rash/Hives Verified 06/01/19 08:58 Physical Exam Vitals: Vital Signs Temp Pulse Pulse Resp BP BP Pulse Ox 06/01/19 11:03 97.6 F 75 18 135/65 96 06/01/19 10:30 96 06/01/19 08:00 98.7 F 88 20 122/81 90 L 06/01/19 06:48 98.4 F 66 20 136/61 92 L 06/01/19 03:47 86 20 109/68 97 06/01/19 01:30 85 20 149/84 96 06/01/19 00:09 20 05/31/19 23:48 98.7 F 90 24 125/64 93 L Intake and Output 05/31/19 06/01/19 06/01/19 22:59 06:59 14:59 Intake Total 430 Balance 430 Intake: IV 10 0.9 10 Oral 420 Other: Weight 154.221 kg - Constitutional General appearance: average body habitus, disheveled, morbidly obese, no acute distress - EENT Eyes: EOMI, PERRLA, normal appearance ENT: hearing grossly normal Ears: bilateral: normal - Neck Neck: normal ROM Carotids: bilateral: upstroke normal - Respiratory Respiratory: bilateral: CTA - Cardiovascular Rhythm: regular Heart sounds: normal: S1, S2 - Gastrointestinal General gastrointestinal: normal bowel sounds, soft - Integumentary Integumentary: normal turgor - Neurologic Neurologic: CNII-XII intact - Musculoskeletal Musculoskeletal: gait normal, generalized weakness, strength equal bilaterally - Psychiatric Psychiatric: A&O x's 3, appropriate affect, intact judgment & insight Results - Laboratory Findings CBC and BMP: 06/01/19 00:20 06/01/19 00:20 PT/INR, D-dimer PT 10.7 sec (9.0-12.0) 06/01/19 00:20 INR 1.0 (<1.2) 06/01/19 00:20 D-Dimer 0.38 mg/L FEU (<0.60) 06/01/19 00:20 Abnormal lab findings: Abnormal Labs 06/01/19 06/01/19 06/01/19 00:20 00:20 04:41 WBC 15.5 H Neutrophils # 12.2 H Monocytes # 1.1 H Sodium 135 L BUN 31 H Glucose 152 H POC Glucose (mg/dL) 194 H Total Bilirubin 1.6 H 06/01/19 06/01/19 06:53 11:50 WBC Neutrophils # Monocytes # Sodium BUN Glucose POC Glucose (mg/dL) 180 H 166 H Total Bilirubin - Diagnostic Findings Chest x-ray: report reviewed, image reviewed (Finding as noted above) Assessment and Plan Assessment: Left lower lobe pneumonia Sepsis related left lower lobe pneumonia Acute hypoxic respiratory failure Obstructive sleep apnea Morbid obesity Uncontrolled diabetes Plan: IV antibiotics Supplemental oxygen As needed breathing treatments Increase activity as tolerated Continued DVT and peptic ulcer disease prophylaxis Time with Patient: Greater than 30
[2019-06-01 16:55] LABS: Glucose,Whole Blood 147 mg/dL (75-99)
[2019-06-01] MEDS: AZITHROMYCIN 500 MG TAB PO SCH (16:59)
[2019-06-01] MEDS: TAMSULOSIN 0.4 MG CAP.ER.24H PO SCH (17:00)
[2019-06-01] MEDS: INSULIN DETEMIR (LEVEMIR) 100 UNIT/ML SYR SQ SCH (17:33)
[2019-06-01] MEDS ORDERED: WARFARIN 2.5 MG TAB PO SCH (18:00)
[2019-06-01 18:43] VITALS: RESP 20
[2019-06-01 20:18] LABS: Glucose,Whole Blood 62 mg/dL (75-99)
[2019-06-01 20:41] LABS: Glucose,Whole Blood 68 mg/dL (75-99)
[2019-06-01] MEDS ORDERED: INSULIN DETEMIR (LEVEMIR) 100 UNIT/ML SYR SQ SCH (21:00)
[2019-06-01] MEDS ORDERED: SENNOSIDES-DOCUSATE SODIUM 1 EACH TAB PO SCH (21:00)
[2019-06-01 21:01] LABS: Glucose,Whole Blood 93 mg/dL (75-99)
[2019-06-01] MEDS: ATORVASTATIN 80 MG TAB PO SCH (22:14)
[2019-06-01] MEDS: PIOGLITAZONE 15 MG TAB PO SCH (22:14)
[2019-06-01] MEDS: ASPIRIN 81 MG PO SCH (22:14)
[2019-06-01] MEDS: traMADol 50 MG TAB PO SCH (22:15)
[2019-06-01] MEDS: ALPRAZolam 0.5 MG TAB PO PRN (22:17)
[2019-06-01] MEDS: FLUTICASONE 50MCG/SPRAY NASAL 16GM EA NOSTRIL SCH (22:46)
[2019-06-01] MEDS: HEPARIN SODIUM,PORCINE 5,000 UNIT/ML 1 ML VIAL SQ SCH (22:48)
[2019-06-02 06:05] LABS: HCT 40.4 % (39.0-53.0); HGB 13.3 gm/dL (13.0-17.5); MCH 30.7 pg (25.0-35.0); MCV 92.9 fL (80.0-100.0); Mean Platelet Volume 7.9; Platelet Count 268 k/uL (150-450); RBC 4.35 m/uL (4.30-5.90); RDW 14.1 % (11.5-15.5); WBC 14.8 k/uL (3.8-10.6)
[2019-06-02 06:16] LABS: African American GFR (CKD) >90 (>60 ml/min/1.73 sqM); Anion Gap 10 mmol/L; Blood Urea Nitrogen 31 mg/dL (9-20); Calcium 9.8 mg/dL (8.4-10.2); Carbon Dioxide 30 mmol/L (22-30); Chloride 94 mmol/L (98-107); Cholesterol 120 mg/dL (<200); Glucose 258 mg/dL (74-99); HDL Cholesterol 35 mg/dL (40-60); LDL Cholesterol,Calculated 71 mg/dL (0-99); Non-African American GFR(CKD) 80 (>60 ml/min/1.73 sqM); Potassium 4.5 mmol/L (3.5-5.1); Sodium 134 mmol/L (137-145); Triglycerides 69 mg/dL (<150)
[2019-06-02 06:32] LABS: Glucose,Whole Blood 242 mg/dL (75-99)
[2019-06-02] MEDS: INSULIN ASPART (NovoLOG) 100 UNIT/ML VIAL SQ SCH ×7 (06:53→21:01)
[2019-06-02] MEDS ORDERED: ASPIRIN 325 MG TAB PO SCH (09:00)
[2019-06-02] MEDS: METOPROLOL SUCCINATE (ER) 50 MG TAB.ER.24H PO SCH (09:18)
[2019-06-02] MEDS: LISINOPRIL 20 MG TAB PO SCH (09:18)
[2019-06-02] MEDS: HYDROCHLOROTHIAZIDE 25 MG TAB PO SCH (09:18)
[2019-06-02] MEDS: FLUoxetine HCL 20 MG CAP PO SCH ×2 (09:18→21:01)
[2019-06-02] MEDS: AZITHROMYCIN 500 MG TAB PO SCH (09:19)
[2019-06-02] MEDS: traMADol 50 MG TAB PO SCH ×2 (09:19→21:00)
--- NOTE | 2019-06-02 09:20 | XR ---
EXAMINATION TYPE: XR chest 1V portable DATE OF EXAM: 06/02/2019 COMPARISON: 06/01/2019 HISTORY: Abnormal x-ray TECHNIQUE: Single frontal view of the chest is obtained. FINDINGS: Stable left lower lobe infiltrate. There is elevation of the hemidiaphragms. Arthropathy o f the shoulders. No overt failure or pneumothorax. IMPRESSION: Stable left lower lobe infiltrate.
[2019-06-02] MEDS: HEPARIN SODIUM,PORCINE 5,000 UNIT/ML 1 ML VIAL SQ SCH ×2 (09:21→21:02)
[2019-06-02] MEDS: FAMOTIDINE 20 MG TAB PO SCH (09:21)
[2019-06-02] MEDS ORDERED: BENZOCAINE/MENTHOL LOZENG 1 EACH LOZENGE MUCOUS MEM PRN (10:24)
--- NOTE | 2019-06-02 11:01 | ECHOF ---
Referral Reason:chest pain, SOB MEASUREMENTS -------- HEIGHT: 172.7 cm WEIGHT: 147.9 kg BP: 139/67 IVSd: 1.6 cm (0.6 - 1.1) LVIDd: 3.1 cm (3.9 - 5.3) LVPWd: 1.4 cm (0.6 - 1.1) IVSs: 1.9 cm LVIDs: 1.4 cm LVPWs: 1.7 cm Ao Diam: 3.5 cm (2.0 - 3.7) AV Cusp: 2.0 cm (1.5 - 2.6) LA Diam: 3.4 cm (2.7 - 3.8) MV EXCURSION: 11.063 mm (> 18.000) MV EF SLOPE: 45 mm/s (70 - 150) EPSS: 2.0 cm MV E Deep: 0.48 m/s MV DecT: 215 ms MV A Deep: 0.64 m/s MV E/A Ratio: 0.75 RAP: 5.00 mmHg RVSP: 9.94 mmHg FINDINGS -------- Sinus rhythm with extra systolic beats. This was a technically difficult study with suboptimal views. The left ventricular size is normal. There is moderate concentric left ventricular hypertrophy. O verall left ventricular systolic function is low-normal with, an EF between 50 - 55 %. The right ventricle is normal in size. The left atrial size is normal. The right atrial size is normal. Lumason used The aortic valve was not well visualized. The mitral valve was not well visualized. There is trace mitral regurgitation. The tricuspid valve was not well visualized. Mild tricuspid regurgitation present. Right ventricu lar systolic pressure is normal at < 35 mmHg. The pulmonic valve was not well visualized. The aortic root size is normal. IVC Not well visulized. There is no pericardial effusion. CONCLUSIONS -------- 1. Sinus rhythm with extra systolic beats. 2. This was a technically difficult study with suboptimal views. 3. The left ventricular size is normal. 4. There is moderate concentric left ventricular hypertrophy. 5. Overall left ventricular systolic function is low-normal with, an EF between 50 - 55 %. 6. The right ventricle is normal in size. 7. The left atrial size is normal. 8. The right atrial size is normal. 9. Lumason used 10. The aortic valve was not well visualized. 11. The mitral valve was not well visualized. 12. There is trace mitral regurgitation. 13. The tricuspid valve was not well visualized. 14. Mild tricuspid regurgitation present. 15. Right ventricular systolic pressure is normal at < 35 mmHg. 16. The pulmonic valve was not well visualized. 17. The aortic root size is normal. 18. IVC Not well visulized. 19. There is no pericardial effusion. [employer]Y [employer]ILDLIFE MANAGER: Marisela Morales RDCS
[2019-06-02 11:53] LABS: Glucose,Whole Blood 225 mg/dL (75-99)
--- NOTE | 2019-06-02 13:10 | P.PN ---
Subjective Progress Note Date: 06/02/19 Principal diagnosis: Left lower lobe pneumonia Sepsis related left lower lobe pneumonia Acute hypoxic respiratory failure Obstructive sleep apnea Morbid obesity Uncontrolled diabetes 06/12/2019, patient seen eval examined during the rounds labs reviewed medications reviewed cough congestion is improved as well patient is now off of oxygen patient getting antibiotics for left lower lobe pneumonia, no evidence of pulmonary hypertension This is a 68-year-old male with the history of obstructive sleep apnea not on oxygen but using CPAP on a regular basis well to me from the office he also has a prior medical history significant for [place] he presented into emergency departm ent with 5 day history of shortness of breath sore throat and chest pain. Patient reports sore throat that began about 3 days ago and is gradually increasing severity. Patient denies drooling or swelling of the face. He does report sinus congestion over the same period. Patient also reports shortness of breath that has not one for a long time although he states it has gradually increased in severity over the last few days. Patient reports dyspnea on exertion. He also is reporting some left-sided chest pain that is more sharp in nature without any radiation. He states the pain occurred multiple times throughout the day however it is not there right now upon occurrence, he states he had some lightheadedness and dizziness but denies nausea vomiting or episode of diaphoresis. Patient denies COPD or asthma or smoking. She denies night sweats fevers or chills. Patient does report a nonproductive cough over the last few days. Patient oxygen saturation was low has been on supplemental oxygen ranging about 88-90%, which is new however he is feeling better today reviewed. Chest prior to discharge from [facility], HIS CHEST X-RAY SUGGESTIVE OF DEVELOPING PNEUMONIA AND LEFT LOWER LOBE, HE HAS BEEN EVALUATED BY CARDIOLOGY PLAN IS FOR ECHOCARDIOGRAM TOMORROW Objective - Vital Signs Vital signs: Vital Signs Temp 96.9 F L 06/02/19 08:00 Pulse 79 06/02/19 12:00 Resp 20 06/02/19 04:00 BP 116/61 06/02/19 08:00 Pulse Ox 92 L 06/02/19 08:00 Intake & Output 06/01/19 06/02/19 06/02/19 18:59 06:59 18:59 Intake Total 430 120 600 Balance 430 120 600 Weight 147.9 kg Intake: IV 10 0.9 10 Oral 420 120 600 Other: # Voids 1 - Exam - Constitutional General appearance: average body habitus, disheveled, morbidly obese, no acute distress - EENT Eyes: EOMI, PERRLA, normal appearance ENT: hearing grossly normal Ears: bilateral: normal - Neck Neck: normal ROM Carotids: bilateral: upstroke normal - Respiratory Respiratory: bilateral: CTA - Cardiovascular Rhythm: regular Heart sounds: normal: S1, S2 - Gastrointestinal General gastrointestinal: normal bowel sounds, soft - Integumentary Integumentary: normal turgor - Neurologic Neurologic: CNII-XII intact - Musculoskeletal Musculoskeletal: gait normal, generalized weakness, strength equal bilaterally - Psychiatric Psychiatric: A&O x's 3, appropriate affect, intact judgment & insight - Labs CBC & Chem 7: 06/02/19 05:31 06/02/19 05:31 Labs: Abnormal Lab Results - Last 24 Hours (Table) 06/01/19 06/01/19 06/01/19 Range/Units 16:54 20:16 20:40 WBC (3.8-10.6) k/uL Sodium (137-145) mmol/L Chloride (98-107) mmol/L BUN (9-20) mg/dL Glucose (74-99) mg/dL POC Glucose (mg/dL) 147 H 62 L 68 L (75-99) mg/dL HDL Cholesterol (40-60) mg/dL 06/02/19 06/02/19 06/02/19 Range/Units 05:31 05:31 06:30 WBC 14.8 H (3.8-10.6) k/uL Sodium 134 L (137-145) mmol/L Chloride 94 L (98-107) mmol/L BUN 31 H (9-20) mg/dL Glucose 258 H (74-99) mg/dL POC Glucose (mg/dL) 242 H (75-99) mg/dL HDL Cholesterol 35 L (40-60) mg/dL 06/02/19 Range/Units 11:51 WBC (3.8-10.6) k/uL Sodium (137-145) mmol/L Chloride (98-107) mmol/L BUN (9-20) mg/dL Glucose (74-99) mg/dL POC Glucose (mg/dL) 225 H (75-99) mg/dL HDL Cholesterol (40-60) mg/dL Microbiology - Last 24 Hours (Table) 06/01/19 00:30 Group A Strep Throat Culture - Preliminary Throat Assessment and Plan Assessment: Left lower lobe pneumonia Sepsis related left lower lobe pneumonia Acute hypoxic respiratory failure Obstructive sleep apnea Morbid obesity Uncontrolled diabetes Plan: IV antibiotics Supplemental oxygen As needed breathing treatments Increase activity as tolerated Continued DVT and peptic ulcer disease prophylaxis Agree with discharge planning next 24-48 hours on oral antibiotics and follow-up in outpatient
--- NOTE | 2019-06-02 13:10 | PN ---
PROGRESS NOTE This patient's clinical panels and EMR reviewed. Patient came with the symptoms of upper respiratory tract infection and sore throat. He is feeling better. His breathing is improved. Patient's echocardiogram reveals a normal left ventricular systolic function. Blood pressure is 116/61 mmHg. First and second heart sounds are normal. Lungs are clear to auscultation and percussion. The patient is stable cardiac mejias and he can be discharged home and follow with Dr. Meléndez as an outpatient. MMODL / IJN: [id number] /
--- NOTE | 2019-06-02 13:31 | P.PN ---
Subjective Progress Note Date: 06/02/19 Patient is 68-year-old male patient of Dr. Vernon with history of myocardial infarction and coronary artery disease status post 3 cardiac stent, diabetes mellitus type 2 insulin requiring, hypertension, hyperlipidemia, osteoarthritis, gout, skin cancer, morbid obesity status post lap band, obstructive sleep apnea on CPAP, remote history of tobacco use, recurrent depression. Patient also follows with from pulmonary medicine and Dr. Wise from endocrinology. He last saw Dr. Meléndez in the office in November and had echocardiogram done at that time. Patient states that yesterday he became real weak while he was sitting. He was complaining of a sore throat for 3-4 days. No fever or chills. He did have some sweats. He got up to walk from the living room to the kitchen and became very dizzy with difficulty breathing and he checked his oxygen saturation which it dropped down to 82%. He continued to not feel well and decided around 10 AM to come into the hospital for evaluation. He also experienced left-sided chest pain that did not seem to be related to activity. He has had shortness of breath with ambulation for the last couple of days. He complains of a cough. No calf tenderness. He complains of backache. Patient presented to [facility] emergency center for ev aluation. He was afebrile, heart rate 90, blood pressure 125/64, pulse ox 93% on room air. WBC 15.5, hemoglobin 14.1. D-dimer 0.38. Electrolytes essentially normal, creatinine 0.73, total bilirubin 1.6 and other liver function tests within normal limits. Blood sugar 152. Troponin negative. Gr oup A strep rapid screen negative. Patient was started on Nitropaste and aspirin. Shortness of breath resolved with oxygen. Patient placed on the cardiac stepdown unit and cardiology consult requested. Repeat troponin negative. Consult added for cardiology and pulmonary medicine. 06/02: Patient has been seen in consultation by cardiology for atypical chest pain. Echocardiogram reveals EF of 50-55% with moderate concentric left ventricular hypertrophy, trace mitral regurgitation, mild tricuspid regurgitation. Patient will follow up with Dr. Meléndez on June 10 as previously scheduled. Patient has been seen by Dr. Kay for left lower lobe pneumonia. Repeat chest x-ray reveals stable left lower lobe infiltrate. Patient has been afebrile, blood pressure 116/61, pulse ox 92% on room air, heart rate 82. Repeat lab work reveals a white count of 14.8, sodium 134, chloride 94, BUN 31. He had a low blood sugar last evening of 60 to, this morning blood sugars in the 200s. Levemir was not given last evening. Patient continues to complaint of sore throat. Breathing is improved today. He denies having any chest pain. Decreased lower extremity edema. Patient will be transferred to the [facility] floor. Cepacol lozenges ordered. Review of Systems Constitutional: Reports sweats, Denies chills, Denies fever Eyes: denies blurred vision, denies pain Ears, nose, mouth and throat: Reports sore throat, Reports vertigo, Denies dysphagia, Denies nasal congestion, Denies nasal discharge Cardiovascular: Denies chest pain, Reports decreased exercise tolerance, Reports dyspnea on exertion, denies leg edema, Reports shortness of breath, Denies edema, Denies lightheadedness, Denies syncope Respiratory: Reports cough, denies dyspnea, Reports sleep apnea, Denies excessive sputum, Denies hemoptysis, Denies home oxygen Gastrointestinal: Denies abdominal pain, Denies diarrhea, Denies loss of appetite, Denies nausea, Denies vomiting Genitourinary: Denies dysuria, Denies urinary retention Musculoskeletal: Reports muscle weakness, Denies frequent falls, Denies gait dysfunction, Denies myalgias Integumentary: Denies pruritus, Denies rash, Denies wounds Neurological: Denies change in mentation, Denies change in speech, Denies numbness, Denies weakness Psychiatric: Denies anxiety, Denies depression Endocrine: Denies fatigue, Denies weight change Objective - Vital Signs Vital signs: Vital Signs Temp 96.9 F L 06/02/19 08:00 Pulse 82 06/02/19 08:00 Resp 20 06/02/19 04:00 BP 116/61 06/02/19 08:00 Pulse Ox 92 L 06/02/19 08:00 Intake & Output 06/01/19 06/02/19 06/02/19 18:59 06:59 18:59 Intake Total 430 120 600 Balance 430 120 600 Weight 147.9 kg Intake: IV 10 0.9 10 Oral 420 120 600 Other: # Voids 1 - Exam Gen: This is a 68-year-old morbidly obese male. Patient is resting on the edge of the bed and appears to be comfortable and in no acute distress. HEENT: Head is atraumatic, normocephalic. Pupils equal, round. Sclerae is anicteric. NECK: Supple. No JVD. No lymphadenopathy. No thyromegaly. LUNGS: Decreased lung sounds but clear to auscultation. No wheezes or rhonchi. No intercostal retractions. HEART: Regular rate and rhythm. No murmur. ABDOMEN: Soft. Bowel sounds are present. No masses. No tenderness. EXTREMITIES: No pedal edema. No calf tenderness. NEUROLOGICAL: Patient is awake, alert and oriented x3. Cranial nerves 2 through 12 are grossly intact. - Labs CBC & Chem 7: 06/02/19 05:31 06/02/19 05:31 Labs: Abnormal Lab Results - Last 24 Hours (Table) 06/01/19 06/01/19 06/01/19 Range/Units 16:54 20:16 20:40 WBC (3.8-10.6) k/uL Sodium (137-145) mmol/L Chloride (98-107) mmol/L BUN (9-20) mg/dL Glucose (74-99) mg/dL POC Glucose (mg/dL) 147 H 62 L 68 L (75-99) mg/dL HDL Cholesterol (40-60) mg/dL 06/02/19 06/02/19 06/02/19 Range/Units 05:31 05:31 06:30 WBC 14.8 H (3.8-10.6) k/uL Sodium 134 L (137-145) mmol/L Chloride 94 L (98-107) mmol/L BUN 31 H (9-20) mg/dL Glucose 258 H (74-99) mg/dL POC Glucose (mg/dL) 242 H (75-99) mg/dL HDL Cholesterol 35 L (40-60) mg/dL 06/02/19 Range/Units 11:51 WBC (3.8-10.6) k/uL Sodium (137-145) mmol/L Chloride (98-107) mmol/L BUN (9-20) mg/dL Glucose (74-99) mg/dL POC Glucose (mg/dL) 225 H (75-99) mg/dL HDL Cholesterol (40-60) mg/dL Microbiology - Last 24 Hours (Table) 06/01/19 00:30 Group A Strep Throat Culture - Preliminary Throat Assessment and Plan Plan: 1. Acute on chronic hypoxic respiratory failure most likely secondary to obstructive sleep apnea and obesity hypoventilation syndrome and possible pu lmonary hypertension, left lower lobe pneumonia. Continue oxygen therapy. Patient uses CPAP at night or whenever sleeping. Consult with Dr. Kay. Continue azithromycin and ceftriaxone 2. Chest pain and shortness of breath. Normal troponins. Acute coronary syndrome ruled out. Cardiology consult appreciated. Continue aspirin 81 mg daily, Lipitor 80 mg at bedtime, metoprolol succinate 50 mg daily, nitroglycerin sublingual. Echocardiogram, repeat troponin, lipid panel. 3. Sore throat with leukocytosis. Strep screen has been negative. Throat culture in progress. 4. History of coronary artery disease with coronary stenting. Continue as in #1. 3. Diabetes mellitus type 2, insulin requiring, uncontrolled with hypoglycemia. 4. Hypertension. Continue hydrochlorothiazide 50 mg daily, lisinopril 40 mg daily, Toprol-XL. 5. Hyperlipidemia. Continue statin. Nexium diabetes mellitus type 2, insulin requiring. Continue Levemir 30 units at bedtime, Humalog scale. Metformin is on hold and invoke onto is not available in the hospital. Continue Actos 15 mg at bedtime. 6. Seasonal ALLERGIES. Continue Flonase. 7. Benign prostatic hypertrophy. Continue Flomax or 0.4 mg daily. 8. Chronic back pain. Continue tramadol 50 mg twice daily 9. DVT prophylaxis. Heparin subcu. 10. GI prophylaxis. Pepcid. 11. Generalized anxiety disorder, recurrent depression. Continue Xanax or 0.5 mg twice daily as needed, Prozac 20 mg twice daily. Discharge plan: Most likely return home. PT and OT added. Impression and plan of care have been directed as dictated by the signing physician. Lexii Browne nurse practitioner acting as scribe for signing physician.
[2019-06-02 16:59] LABS: Glucose,Whole Blood 258 mg/dL (75-99)
[2019-06-02] MEDS: TAMSULOSIN 0.4 MG CAP.ER.24H PO SCH (17:18)
[2019-06-02 20:32] LABS: Glucose,Whole Blood 243 mg/dL (75-99)
[2019-06-02] MEDS: ATORVASTATIN 80 MG TAB PO SCH (21:00)
[2019-06-02] MEDS: ASPIRIN 81 MG PO SCH (21:00)
[2019-06-02] MEDS: PIOGLITAZONE 15 MG TAB PO SCH (21:03)
[2019-06-02] MEDS: INSULIN DETEMIR (LEVEMIR) 100 UNIT/ML SYR SQ SCH (21:12)
[2019-06-02] MEDS: ALPRAZolam 0.5 MG TAB PO PRN (22:37)
[2019-06-03 04:04] VITALS: BP 106/61; PULSE 73; TEMP 97.9
[2019-06-03 07:43] LABS: Glucose,Whole Blood 217 mg/dL (75-99)
[2019-06-03] MEDS: traMADol 50 MG TAB PO SCH (08:21)
[2019-06-03] MEDS: FAMOTIDINE 20 MG TAB PO SCH (08:21)
[2019-06-03] MEDS: AZITHROMYCIN 500 MG TAB PO SCH (08:21)
[2019-06-03] MEDS: LISINOPRIL 20 MG TAB PO SCH (08:21)
[2019-06-03] MEDS: INSULIN ASPART (NovoLOG) 100 UNIT/ML VIAL SQ SCH ×4 (08:22→12:43)
[2019-06-03] MEDS: HEPARIN SODIUM,PORCINE 5,000 UNIT/ML 1 ML VIAL SQ SCH (08:23)
[2019-06-03] MEDS: FLUTICASONE 50MCG/SPRAY NASAL 16GM EA NOSTRIL SCH (08:23)
[2019-06-03] MEDS: METOPROLOL SUCCINATE (ER) 50 MG TAB.ER.24H PO SCH (09:48)
[2019-06-03] MEDS: FLUoxetine HCL 20 MG CAP PO SCH (09:48)
[2019-06-03] MEDS: HYDROCHLOROTHIAZIDE 25 MG TAB PO SCH (09:49)
[2019-06-03 11:15] LABS: Glucose,Whole Blood 207 mg/dL (75-99)
--- NOTE | 2019-06-03 12:09 | CDI ---
Documentation Clarification Form Date: 06/03/2019 11:52:03 AM From: Elyse Ohara RN CCDS Admit Date: 06/02/2019 1:42:00 PM Patient Name: Bruno Monte Visit Number: [id number] Discharge Date: ATTENTION: The Clinical Documentation Specialists (CDI) and [facility] Coding Staff appreciate your assistance in clarifying documentation. Please respond to the clarification below the line at the bottom and electronically sign. The CDI & [facility] Coding staff will review the response and follow-up if needed. Please note: Queries are made part of the Legal Health Record. If you have any questions, please contact the author of this message via ITS. Dr. Bridges, Heart Failure is documented in the Medical History in your Consult 06/01 History/Risk Factors: 68-year-old male presents to the ED with shortness of breath and chest pain. Medical history CAD, chest pain, HTN, Heart Failure, Angina, [place] Clinical Indicators: VS/Pulse OX: 05/31/19 23:48 125/64 90 98.7 234 93% ra Echocardiogram Results:06/02 Moderate concentric left ventricular hypertrophy. Overall left ventricular systolic function is low normal with EF between 50-55% Chest X Ray: 06/02 stable left lower lobe infiltrate Treatment: 06/01 Hydrodiuril 50mg Daily am; Lisinopril 50mg po daily am; Toprol XL 50g po daily am; In your professional opinion, can you please clarify the acuity and type of CHF if known? * Chronic Diastolic Heart Failure * Chronic Systolic & Diastolic Heart Failure * Unable to Determine * Other, please specify (Last Revision: September 2017) MTDD
--- NOTE | 2019-06-03 12:16 | P.DS ---
Providers Date of admission: 06/02/19 13:42 Expected date of discharge: 06/03/19 Attending physician: Alejandro Lambert Consults: 06/01/19 04:03 Consult Physician Urgent Consulting Provider: Brennan Villagomez Consult Reason/Comments: chest pain Do you want consulting provider notified?: Yes, Notify in am 06/01/19 09:23 Consult Physician Routine Consulting Provider: Lee Kay Consult Reason/Comments: hypoxia Do you want consulting provider notified?: Yes Primary care physician: Sixto Vernon [facility] Course: Patient is 68-year-old male patient of Dr. Vernon with history of myocardial infarction and coronary artery disease status post 3 cardiac stent, diabetes mellitus type 2 insulin requiring, hypertension, hyperlipidemia, osteoarthritis, gout, skin cancer, morbid obesity status post lap band, obstructive sleep apnea on CPAP, remote history of tobacco use, recurrent depression. Patient also follows with from pulmonary medicine and Dr. Wise from endocrinology. He last saw Dr. Meléndez in the office in November and had echocardiogram done at that time. Patient states that yesterday he became real weak while he was sitting. He was complaining of a sore throat for 3-4 days. No fever or chills. He did have some sweats. He got up to walk from the living room to the kitchen and became very dizzy with difficulty breathing and he checked his oxygen saturation which it dropped down to 82%. He continued to not feel well and decided around 10 AM to come into the hospital for evaluation. He also experienced left-sided chest pain that did not seem to be related to activity. He has had shortness of breath with ambulation for the last couple of days. He complains of a cough. No calf tenderness. He complains of backache. Patient presented to emergency center for evaluation. He was afebrile, heart rate 90, blood pressure 125/64, pulse ox 93% on room air. WBC 15.5, hemoglobin 14.1. D-dimer 0.38. Electrolytes essentially normal, creatinine 0.73, total bilirubin 1.6 and other liver function tests within normal limits. Blood sugar 152. Troponin negative. Group A strep rapid screen negative. Patient was started on Nitropaste and aspirin. Shortness of breath resolved with oxygen. Patient placed on the cardiac stepdown unit and cardiology consult requested. Repeat troponin negative. Consult added for cardiology and pulmonary medicine. 06/02: Patient has been seen in consultation by cardiology for atypical chest pain. Echocardiogram reveals EF of 50-55% with moderate concentric left ventricular hypertrophy, trace mitral regurgitation, mild tricuspid regurgitation. Patient will follow up with Dr. Meléndez on June 10 as previously scheduled. Patient has been seen by Dr. Kay for left lower lobe pneumonia. Repeat chest x-ray reveals stable left lower lobe infiltrate. Patient has been afebrile, blood pressure 116/61, pulse ox 92% on room air, heart rate 82. Repeat lab work reveals a white count of 14.8, sodium 134, chloride 94, BUN 31. He had a low blood sugar last evening of 60 to, this morning blood sugars in the 200s. Levemir was not given last evening. Patient continues to complaint of sore throat. Breathing is improved today. He denies having any chest pain. Decreased lower extremity edema. Patient will be transferred to the [facility] floor. Cepacol lozenges ordered. 06/03: Blood sugars are now running in the 200s. Patient will be resumed on his home medications. Streptococcus culture was finalized with no growth. His breathing is stable today. Pulse ox is 97% on 2 L nasal cannula, heart rate 86, blood pressure 109/68, patient afebrile. He is anxious to be discharged home. He has been followed by Dr. Kay. The patient will be discharged home today in stable condition. Discharge diagnoses: 1. Acute on chronic hypoxic respiratory failure most likely secondary to obstructive sleep apnea and obesity hypoventilation syndrome and possible pulmonary hypertension, left lower lobe pneumonia. 2. Chest pain and shortness of breath. 3. Sore throat with leukocytosis. 4. History of coronary artery disease with coronary stenting. 3. Diabetes mellitus type 2, insulin requiring, uncontrolled with hypoglycemia. 4. Hypertension. 5. Hyperlipidemia. 6. Seasonal ALLERGIES. 7. Benign prostatic hypertrophy. 8. Chronic back pain. 9. Generalized anxiety disorder, recurrent depression. 10. Sepsis ruled out. Discharge plan: home. Impression and plan of care have been directed as dictated by the signing physician. Lexii Browne nurse practitioner acting as scribe for signing physician. Patient Condition at Discharge: Good Plan - Discharge Summary New Discharge Prescriptions: New Benzocaine/Menthol Lozeng [Cepacol lozenge] 1 each MUCOUS MEM Q4HR PRN lozenge PRN Reason: sore throat Azithromycin [Zithromax] 500 mg PO DAILY #7 tab Continue Metoprolol Succinate (ER) [Toprol XL] 50 mg PO QAM Aspirin 81 mg PO HS Atorvastatin Calcium [Lipitor] 80 mg PO HS Enalapril/Hydrochlorothiazide [Vaseretic 10-25 mg] 2 tab PO QAM Tamsulosin [Flomax] 0.4 mg PO PC-SUPPER cap.er.24h tiZANidine HCL 2 mg PO DAILY PRN PRN Reason: Muscle Spasm Pioglitazone [Actos] 15 mg PO HS Meloxicam 15 mg PO DAILY traMADol HCL 50 mg PO BID metFORMIN HCL [Glucophage] 1,000 mg PO BID Nitroglycerin Sl Tabs [Nitrostat] 0.4 mg SUBLINGUAL Q5M PRN PRN Reason: Chest Pain Canagliflozin [Invokana] 300 mg PO QAM Insulin Detemir (Levemir) [Levemir] 30 unit SQ HS INSULIN LISPRO (humaLOG) [humaLOG] 10 unit SQ AC-TID Fluticasone Nasal [place] [Flonase Nasal [place]] 2 spray EA NOSTRIL DAILY FLUoxetine HCL [PROzac] 20 mg PO BID ALPRAZolam [Xanax] 0.5 mg PO BID PRN PRN Reason: Anxiety Discharge Medication List Aspirin 81 mg PO HS 03/18/14 [History] Atorvastatin Calcium [Lipitor] 80 mg PO HS 03/18/14 [History] Enalapril/Hydrochlorothiazide [Vaseretic 10-25 mg] 2 tab PO QAM 03/18/14 [History] Metoprolol Succinate (ER) [Toprol XL] 50 mg PO QAM 03/18/14 [History] Tamsulosin [Flomax] 0.4 mg PO PC-SUPPER cap.er.24h 11/18/15 [Rx] ALPRAZolam [Xanax] 0.5 mg PO BID PRN 06/01/19 [History] Canagliflozin [Invokana] 300 mg PO QAM 06/01/19 [History] FLUoxetine HCL [PROzac] 20 mg PO BID 06/01/19 [History] Fluticasone Nas[place] [Flonase Nas[place]] 2 spray EA NOSTRIL DAILY 06/01/19 [History] INSULIN LISPRO (humaLOG) [humaLOG] 10 unit SQ AC-TID 06/01/19 [History] Insulin Detemir (Levemir) [Levemir] 30 unit SQ HS 06/01/19 [History] Meloxicam 15 mg PO DAILY 06/01/19 [History] Nitroglycerin Sl Tabs [Nitrostat] 0.4 mg SUBLINGUAL Q5M PRN 06/01/19 [History] Pioglitazone [Actos] 15 mg PO HS 06/01/19 [History] metFORMIN HCL [Glucophage] 1,000 mg PO BID 06/01/19 [History] tiZANidine HCL 2 mg PO DAILY PRN 06/01/19 [History] traMADol HCL 50 mg PO BID 06/01/19 [History] Azithromycin [Zithromax] 500 mg PO DAILY #7 tab 06/03/19 [Rx] Benzocaine/Menthol Lozeng [Cepacol lozenge] 1 each MUCOUS MEM Q4HR PRN lozenge 06/03/19 [Rx] Follow up Appointment(s)/Referral(s): Virgil Meléndez MD [STAFF PHYSICIAN] - 06/10/19 3:00 pm (has appointment 06/10) Sixto Vernon MD [Primary Care Provider] - 06/12/19 1:15 pm Lee Kay MD [STAFF PHYSICIAN] - 06/12/19 11:45 am Patient Instructions/Handouts: Azithromycin (By mouth), Angina (ED), Pneumonia (DC) Discharge Disposition: HOME SELF-CARE
--- NOTE | 2019-06-03 18:13 | P.PN ---
Subjective Progress Note Date: 06/03/19 Principal diagnosis: Left lower lobe pneumonia Sepsis related left lower lobe pneumonia Acute hypoxic respiratory failure Obstructive sleep apnea Morbid obesity Uncontrolled diabetes 06/03/2019, pt seen and examined in AM round, agree with discharge planning and changing abx to po, will follow out pt 06/02/2019, patient seen eval examined during the rounds labs reviewed me dications reviewed cough congestion is improved as well patient is now off of oxygen patient getting antibiotics for left lower lobe pneumonia, no evidence of pulmonary hypertension This is a 68-year-old male with the history of obstructive sleep apnea not on oxygen but using CPAP on a regular basis well to me from the office he also has a prior medical history significant for [place] he presented into emergency department with 5 day history of shortness of breath sore throat and chest pain. Patient reports sore throat that began about 3 days ago and is gradually increasing severity. Patient denies drooling or swelling of the face. He does report sinus congestion over the same period. Patient also reports shortness of breath that has not one for a long time although he states it has gradually increased in severity over the last few days. Patient reports dyspnea on exertion. He also is reporting some left-sided chest pain that is more sharp in nature without any radiation. He states the pain occurred multiple times throughout the day however it is not there right now upon occurrence, he states he had some lightheadedness and dizziness but denies nausea vomiting or episode of diaphoresis. Patient denies COPD or asthma or smoking. She denies night sweats fevers or chills. Patient does report a nonproductive cough over the last few days. Patient oxygen saturation was low has been on supplemental oxygen ranging about 88-90%, which is new however he is feeling better today r angela. Chest prior to discharge from THE OXYGEN, HIS CHEST X-RAY SUGGESTIVE OF DEVELOPING PNEUMONIA AND LEFT LOWER LOBE, HE HAS BEEN EVALUATED BY CARDIOLOGY PLAN IS FOR ECHOCARDIOGRAM TOMORROW Objective - Vital Signs Vital signs: Vital Signs Temp 97.9 F 06/03/19 04:02 Pulse 73 06/03/19 04:02 Resp 20 06/03/19 04:02 BP 106/61 06/03/19 04:02 Pulse Ox 95 06/03/19 04:02 Intake & Output 06/02/19 06/03/19 06/03/19 18:59 06:59 18:59 Intake Total 1980 480 Balance 1979 Weight 150 kg Intake: Oral 1979 Other: Voiding Method Toilet Toilet # Voids 1 3 - Exam - Constitutional General appearance: average body habitus, disheveled, morbidly obese, no acute distress - EENT Eyes: EOMI, PERRLA, normal appearance ENT: hearing grossly normal Ears: bilateral: normal - Neck Neck: normal ROM Carotids: bilateral: upstroke normal - Respiratory Respiratory: bilateral: CTA - Cardiovascular Rhythm: regular Heart sounds: normal: S1, S2 - Gastrointestinal General gastrointestinal: normal bowel sounds, soft - Integumentary Integumentary: normal turgor - Neurologic Neurologic: CNII-XII intact - Musculoskeletal Musculoskeletal: gait normal, generalized weakness, strength equal bilaterally - Psychiatric Psychiatric: A&O x's 3, appropriate affect, intact judgment & insight - Labs CBC & Chem 7: 06/02/19 05:31 06/02/19 05:31 Labs: Abnormal Lab Results - Last 24 Hours (Table) 06/02/19 06/03/19 06/03/19 Range/Units 20:29 07:41 11:13 POC Glucose (mg/dL) 243 H 217 H 207 H (75-99) mg/dL Microbiology - Last 24 Hours (Table) 06/01/19 00:30 Group A Strep Throat Culture - Final Throat Assessment and Plan Assessment: Left lower lobe pneumonia Sepsis related left lower lobe pneumonia Acute hypoxic respiratory failure Obstructive sleep apnea Morbid obesity Uncontrolled diabetes Plan: IV antibiotics can be changed to po As needed breathing treatments Increase activity as tolerated Continued DVT and peptic ulcer disease prophylaxis Agree with discharge planning with oral antibiotics and follow-up in outpatient Time with Patient: Greater than 30
== END 2019-06-03 13:00 | disposition home or self-care (01) | DRG 189 ==
LOC: EC 23:24 → 1SOBS 06-01 04:09 → UNDOADMIN 06-01 04:09 → 3SCARD 06-01 04:09 → 1SOBS 06-01 05:37 → OBSVTOIN 06-02 13:42 → 3NMEDONC 06-02 22:00
PROVIDERS: ADMIT Internal Medicine; ATTEND Internal Medicine
DX: J96.21 Acute and chronic respiratory failure with hypoxia (principal); J18.9 Pneumonia, unspecified organism; E66.2 Morbid (severe) obesity with alveolar hypoventilation; F33.9 Major depressive disorder, recurrent, unspecified; J44.0 Chronic obstructive pulmonary disease with (acute) lower respiratory infection; J98.11 Atelectasis; Z68.43 Body mass index [BMI] 50.0-59.9, adult; E78.5 Hyperlipidemia, unspecified; F41.1 Generalized anxiety disorder; G89.29 Other chronic pain; I11.0 Hypertensive heart disease with heart failure; I25.10 Atherosclerotic heart disease of native coronary artery without angina pectoris; I25.2 Old myocardial infarction; I50.9 Heart failure, unspecified; J30.2 Other seasonal allergic rhinitis; N40.0 Benign prostatic hyperplasia without lower urinary tract symptoms; Z79.01 Long term (current) use of anticoagulants; Z79.1 Long term (current) use of non-steroidal anti-inflammatories (NSAID); Z79.4 Long term (current) use of insulin; Z79.82 Long term (current) use of aspirin; Z79.899 Other long term (current) drug therapy; Z80.1 Family history of malignant neoplasm of trachea, bronchus and lung; Z82.0 Family history of epilepsy and other diseases of the nervous system; Z82.3 Family history of stroke; Z85.828 Personal history of other malignant neoplasm of skin; Z87.891 Personal history of nicotine dependence; Z95.5 Presence of coronary angioplasty implant and graft; Z98.1 Arthrodesis status; E11.65 Type 2 diabetes mellitus with hyperglycemia
CPT/HCPCS: 36415; 71045; 71046; 80048; 80053; 80061; 83735; 84484; 85025; 85027; 85379; 85610; 85730; 87081; 87430; 87502; 93005; 93306; 99285

== ENCOUNTER → 2019-12-19 | Outpatient (CLI) | payer MEDICARE ==
[2019-12-19 16:01] LABS: Hemoglobin A1C 7.5 % (4.0-6.0)
[2019-12-19 17:29] LABS: African American GFR (CKD) 87.4 (60.0-200.0); Anion Gap 8.4 mmol/L (4.00-12.00); Calcium 10.2 mg/dL (8.7-10.3); Carbon Dioxide 32.6 mmol/L (21.6-31.8); Chol/HDL Ratio 3.5; Non-African American GFR(CKD) 75.4 (60.0-200.0); Potassium 4.7 mmol/L (3.5-5.5)
[2019-12-19 18:26] LABS: Urine Creatinine 98.7 mg/dL
== END | disposition home or self-care (01) ==
LOC: LABWHC1 10:21
PROVIDERS: ATTEND Internal Medicine
DX: E11.65 Type 2 diabetes mellitus with hyperglycemia (principal)
CPT/HCPCS: 36415; 80048; 80061; 82043; 82570; 83036

== ENCOUNTER → 2020-01-01 | Day surgery (SDC) | payer MEDICARE ==
[~2020-01-01] MED LIST: ALPRAZolam 0.25 MG TAB PO PRN; ALPRAZolam 0.5 MG TAB PO PRN; ASPIRIN 81 MG ONE; ASPIRIN 81 MG PO SCH; ATORVASTATIN 80 MG TAB PO SCH; ATORVASTATIN 80 MG TAB PO STA; CANAGLIFLOZIN 300 MG PO SCH; FLUTICASONE 50MCG/SPRAY NASAL 16GM EA NOSTRIL SCH; FLUoxetine HCL 20 MG CAP PO SCH; HEPARIN SODIUM 1,000 UN/ML (10ML VL) IV ONE; HEPARIN SODIUM 1,000 UN/ML (10ML VL) ONE; INSULIN DETEMIR (LEVEMIR) 100 UNIT/ML SYR SQ SCH; INSULIN LISPRO 5 UNIT SQ SCH; IOPAMIDOL-370 100ML BTL INJ ONE; LIDOCAINE 1% INJ 10MG/ML (20 ML MDV) ONE; LIDOCAINE 1% INJ 10MG/ML (20 ML MDV) SQ ONE; METOPROLOL SUCCINATE (ER) 50 MG TAB.ER.24H PO SCH; NITROGLYCERIN SL TABS 0.4 MG TAB SUBLINGUAL PRN; NON FORMULARY DRUG (Exenatide Microspheres [Bydureon Pen] 2 MG) SQ SCH; PIOGLITAZONE 15 MG TAB PO SCH; RX INFO: IV CONTRAST WAS GIVEN 1 EACH MISC MISCELLANE PRN; SODIUM CHLORIDE 0.9% 1,000 ML IV SCH; SODIUM CHLORIDE 0.9% 1,000 ML in EMPTY BAG 1 BAG IV ONE; TAMSULOSIN 0.4 MG CAP.ER.24H PO SCH; VERAPAMIL 2.5 MG/ML 2 ML AMP ONE; VERAPAMIL SYRINGE (5 MG/10 ML) INTRAARTER ONE; fentaNYL (PF) 50 MCG/ML 2 ML AMP IV ONE; fentaNYL (PF) 50 MCG/ML 2 ML AMP ONE; tiZANidine 4 MG TAB PO PRN; traMADol 50 MG TAB PO SCH
[2020-01-01] MEDS: ASPIRIN 325 MG TAB PO STA ×2 (08:23→08:24)
[2020-01-01 08:49] LABS: Basophils % (A) 1 %; Eosinophils # (A) 0.4 k/uL (0-0.7); Eosinophils % (A) 4 %; HCT 47.3 % (39.0-53.0); Lymphocytes # (A) 1.9 k/uL (1.0-4.8); Lymphocytes % (A) 22 %; MCH 29.6 pg (25.0-35.0); MCHC 31.7 g/dL (31.0-37.0); MCV 93.3 fL (80.0-100.0); Mean Platelet Volume 7.7; Monocytes # (A) 0.6 k/uL (0-1.0); Monocytes % (A) 7 %; Neutrophils # (A) 5.3 k/uL (1.3-7.7); Neutrophils % (A) 64 %; Platelet Count 248 k/uL (150-450); RBC 5.07 m/uL (4.30-5.90); RDW 14.2 % (11.5-15.5); WBC 8.3 k/uL (3.8-10.6)
--- NOTE | 2020-01-01 10:39 | CC ---
CARDIAC CATHETERIZATION REPORT Mr. Monte is a 69-year-old male with known history of coronary artery disease, status post stenting in 2011- 2013, history of hypertension, hyperlipidemia, and diabetes mellitus who recently has been complaining of progressive symptoms of dyspnea on exertion as well as symptoms of chest discomfort. In view of that, recommendation made regarding cardiac catheterization. The procedures, risks, and complication were discussed with the patient, who is in full understanding and agreement. PROCEDURE: Patient was brought to the chemical laboratory scientist in the fasting semi-sedated state after receiving fentanyl and Benadryl and achieving moderate conscious sedated state. Using Xylocaine anesthesia and Seldinger technique, a 6-[place]ian sheath was introduced in the right radial artery. Selective right and left coronary angiography performed using 5-Bel[place]ian 3.5 bend right Lillian and 4 bend left Lillian catheter. Multiple views of the coronary artery including hemiaxial views obtained. Following that, a 5-[place]ian tight pigtail catheter was introduced into the left ventricle and pressures were calculated. Following that, catheter and sheath were removed. Hemostasis was obtained with deployment of a TR band. There was no immediate complication. Patient was returned to his room in stable condition. Of note, the patient received 5000 units of intravenous heparin as well as intra-arterial verapamil. FINDINGS: LEFT MAIN: This is a short size vessel bifurcating into left circumflex, left anterior descending artery. Left main coronary artery has no evidence of high-grade stenosis. LEFT ANTERIOR DESCENDING ARTERY: This is a large-sized vessel, reaching toward the apex with a wraparound apex segment. The stented segment in the mid LAD is patent with no evidence of restenosis. There is a mild plaque of 20% proximal to it. The rest of the vessel has no high-grade stenosis. LEFT CIRCUMFLEX: This is a large nondominant vessel giving rise to 3 obtuse marginal branches. The left circumflex as well as branches have no evidence of obstructive coronary artery disease. RIGHT CORONARY ARTERY: This is a dominant vessel, large in caliber, bifurcating distally into PDA and posterolateral segment and branches. The mid stented segment is patent with no evidence of significant in-stent restenosis. There is a plaque of 20% to 30% plaque distal to the stent without any significant progression. LEFT VENTRICULOGRAM: Left ventriculogram was not performed. HEMODYNAMICS: There was no gradient across the aortic valve. The left ventricular end- diastolic pressure was 8-12 mmHg. CONCLUSION: 1. No evidence of restenosis at the prior stented segment. 2. Mild disease in the right coronary artery distal to the stent and in the LAD proximal to the stent. RECOMMENDATION: In view of finding anatomy, I recommend continue medical therapy with aggressive coronary risk modifications being initiated. Those findings and recommendation were discussed with the patient his family and they are full understanding and agreement. Duration of the procedure is 19 minutes. MMCARLOSL / IJN: [id number] /
--- NOTE | 2020-01-01 10:45 | LTR ---
DATE OF SERVICE: 01/01/2020 RE: Bruno Monte Dear Dr. Vernon; I had the pleasure to perform cardiac catheterization on Mr. Monte at [facility] on January 01, 2020 and a full copy of the procedure note will be forwarded to you. In brief, he was found to have no evidence of significant restenosis of his stented segment in the LAD and the right coronary artery with mild obstructive disease. Based on those findings, I have recommended continue medical therapy with aggressive risk modifications being initiated. Thank you again for allowing me to participate in this patient's care. Please feel free to call for any questions. Sincerely yours, MD FLAQUITA HuertaL / KEVENN: [phone] /
[2020-01-01 15:27] LABS: Glucose,Whole Blood 192 mg/dL (75-99)
[2020-01-02 09:26] VITALS: BMI 42.8
[2020-01-02 09:58] VITALS: BP 108/64; PULSE 66; RESP 18; TEMP 98.7
== END | disposition home or self-care (01) ==
LOC: CATHCVL 07:58
PROVIDERS: ATTEND Internal Medicine Interventional Cardiology
DX: I25.110 Atherosclerotic heart disease of native coronary artery with unstable angina pectoris (principal); I10 Essential (primary) hypertension; I25.5 Ischemic cardiomyopathy; E11.9 Type 2 diabetes mellitus without complications; E78.2 Mixed hyperlipidemia; E66.9 Obesity, unspecified; Z95.5 Presence of coronary angioplasty implant and graft; Z72.0 Tobacco use; Z79.82 Long term (current) use of aspirin; Z79.1 Long term (current) use of non-steroidal anti-inflammatories (NSAID); Z79.84 Long term (current) use of oral hypoglycemic drugs; Z88.0 Allergy status to penicillin; Z88.5 Allergy status to narcotic agent; Z98.84 Bariatric surgery status; Z98.1 Arthrodesis status; Z90.89 Acquired absence of other organs; Z96.659 Presence of unspecified artificial knee joint; Z68.41 Body mass index [BMI] 40.0-44.9, adult
CPT/HCPCS: 93458; 85025; C1769; C1894; J2001; J3010; J1644; Q9967

== ENCOUNTER → 2020-05-21 | Outpatient (CLI) | payer MEDICARE ==
[2020-05-21 19:17] LABS: African American GFR (CKD) 87.4 (60.0-200.0); Albumin 4.1 g/dL (3.80-4.90); Albumin/Globulin Ratio 1.78 (1.60-3.17); Anion Gap 7.3 mmol/L (4.00-12.00); Calcium 9.8 mg/dL (8.7-10.3); Carbon Dioxide 28.7 mmol/L (21.6-31.8); Chol/HDL Ratio 3.6; Globulin 2.3 g/dL (1.6-3.3); LDL Cholesterol,Calculated 59.6 mg/dL (0.0-131.0); Non-African American GFR(CKD) 75.4 (60.0-200.0); Potassium 4.3 mmol/L (3.5-5.5); Total Bilirubin 0.6 mg/dL (0.2-1.2); Total Protein 6.4 g/dL (6.2-8.2); VLDL Calculation 18.4 mg/dL (5.00-40.00)
[2020-05-21 20:16] LABS: Microalbumin Creatinine Ratio <30 mg/g Creat (0-30); Urine Creatinine 86.1 mg/dL
[2020-05-21 21:46] LABS: Hemoglobin A1C 7.4 % (4.0-6.0)
== END | disposition home or self-care (01) ==
LOC: LABWHC1 12:24
PROVIDERS: ATTEND Internal Medicine Interventional Cardiology
DX: E78.2 Mixed hyperlipidemia (principal); E11.65 Type 2 diabetes mellitus with hyperglycemia
CPT/HCPCS: 36415; 80053; 80061; 82043; 82570; 83036

== ENCOUNTER → 2020-11-17 | Outpatient (CLI) | payer MEDICARE ==
[2020-11-17 22:26] LABS: African American GFR (CKD) 103.4 (60.0-200.0); Albumin 3.9 g/dL (3.80-4.90); Albumin/Globulin Ratio 1.77 (1.60-3.17); Anion Gap 10.5 mmol/L (4.00-12.00); Calcium 9.4 mg/dL (8.7-10.3); Carbon Dioxide 25.5 mmol/L (21.6-31.8); Chol/HDL Ratio 3.43; Globulin 2.2 g/dL (1.6-3.3); Non-African American GFR(CKD) 89.2 (60.0-200.0); Potassium 4.5 mmol/L (3.5-5.5); Total Bilirubin 0.8 mg/dL (0.2-1.2); Total Protein 6.1 g/dL (6.2-8.2)
== END | disposition home or self-care (01) ==
LOC: LABWHC1 10:44
PROVIDERS: ATTEND Internal Medicine Interventional Cardiology
DX: E78.2 Mixed hyperlipidemia (principal)
CPT/HCPCS: 36415; 80053; 80061

== ENCOUNTER → 2021-05-30 | Outpatient (CLI) | payer MEDICARE ==
[2021-05-30 19:53] LABS: Chol/HDL Ratio 2.78 Ratio; LDL Cholesterol,Calculated 61.5 mg/dL (0.0-131.0)
[2021-05-30 21:33] LABS: ALT 34 U/L (10-49); AST 27 U/L (14-35); African American GFR (CKD) 103.4 (60.0-200.0); Albumin 4.2 g/dL (3.8-4.9); Albumin/Globulin Ratio 1.83 (1.60-3.17); Alkaline Phosphatase 92 U/L (41-126); BUN/Creat Ratio 23.25 Ratio (12.00-20.00); Blood Urea Nitrogen 18.6 mg/dL (9.0-27.0); Carbon Dioxide 25.5 mmol/L (20.0-27.5); Chloride 106 mmol/L (96-109); Globulin 2.3 g/dL (1.6-3.3); Glucose 164 mg/dL (70-110); Non-African American GFR(CKD) 89.2 (60.0-200.0); Sodium 143 mmol/L (135-145); Total Protein 6.5 g/dL (6.2-8.2)
== END | disposition home or self-care (01) ==
LOC: LABWHC1 11:48
PROVIDERS: ATTEND Internal Medicine
DX: E11.65 Type 2 diabetes mellitus with hyperglycemia (principal); I10 Essential (primary) hypertension; E78.2 Mixed hyperlipidemia
CPT/HCPCS: 36415; 80053; 80061; 83036

== ENCOUNTER → 2021-12-07 | Outpatient (CLI) | payer MEDICARE ==
[2021-12-07 16:02] LABS: Chol/HDL Ratio 2.56 Ratio; LDL Cholesterol,Calculated 49.9 mg/dL (0.0-131.0); VLDL Calculation 12.82 mg/dL (5.00-40.00)
== END | disposition home or self-care (01) ==
LOC: LABWHC1 08:11
PROVIDERS: ATTEND Nurse Practitioner Adult Health
DX: E78.2 Mixed hyperlipidemia (principal)
CPT/HCPCS: 36415; 80061

== ENCOUNTER 2021-12-13 11:32 | Emergency (ER) | payer MEDICARE ==
[2021-12-13 11:44] VITALS: RESP 18; TEMP 98.2
[2021-12-13] MEDS ORDERED: BEBTELOVIMAB (EUA) 175 MG/2 ML VIAL IV ONE (12:15)
--- NOTE | 2021-12-13 12:38 | ED ---
General Adult HPI - General Chief complaint: Recheck/Abnormal Lab/Rx Stated complaint: covid+, wants infusion Time Seen by Provider: 12/13/21 11:48 Source: patient, RN notes reviewed Mode of arrival: ambulatory Limitations: no limitations - History of Present Illness Initial comments: 71-year-old male presents emergency Department with chief complaint of covid 19. Patient states started her symptoms yesterday and tested positive. Patient states he's had mild nasal congestion, cough, body aches. Denies any chest pain shortness breath no reported fever. Patient denies any nausea vomiting diarrhea constipation no other complaints. Patient states he is here for monoclonal antibodies. - Related Data Home Medications Medication Instructions Recorded Confirmed Aspirin 81 mg PO HS 03/18/14 01/01/20 Atorvastatin Calcium [Lipitor] 80 mg PO HS 03/18/14 01/01/20 Enalapril/Hydrochlorothiazide 2 tab PO QAM 03/18/14 01/01/20 [Vaseretic 10-25 mg] Metoprolol Succinate (ER) [Toprol 50 mg PO QAM 03/18/14 01/01/20 XL] ALPRAZolam [Xanax] 0.5 mg PO BID PRN 06/01/19 01/01/20 Canagliflozin [Invokana] 300 mg PO QAM 06/01/19 01/01/20 FLUoxetine HCL [PROzac] 20 mg PO BID 06/01/19 01/01/20 Fluticasone Nasal [place] [Flonase 2 spray EA NOSTRIL DAILY 06/01/19 01/01/20 Nasal [place]] INSULIN LISPRO (humaLOG) [humaLOG] 5 unit SQ AC-TID 06/01/19 01/01/20 Insulin Detemir (Levemir) [Levemir] 25 unit SQ HS 06/01/19 01/01/20 Meloxicam 15 mg PO DAILY 06/01/19 01/01/20 Nitroglycerin Sl Tabs [Nitrostat] 0.4 mg SUBLINGUAL Q5M PRN 06/01/19 01/01/20 Pioglitazone [Actos] 15 mg PO HS 06/01/19 01/01/20 metFORMIN HCL [Glucophage] 1,000 mg PO BID 06/01/19 01/01/20 tiZANidine HCL 2 mg PO DAILY PRN 06/01/19 01/01/20 traMADol HCL 50 mg PO BID 06/01/19 01/01/20 Exenatide Microspheres [Bydureon 2 mg SQ TH 12/31/19 01/01/20 Pen] Furosemide [Lasix] 20 mg PO DAILY 12/31/19 01/01/20 Potassium Chloride [Potassium 10 meq PO DAILY 12/31/19 01/01/20 Chloride ER] Previous Rx's Medication Instructions Recorded Tamsulosin [Flomax] 0.4 mg PO PC-SUPPER cap.er.24h 11/18/15 Allergies Allergy/AdvReac Type Severity Reaction Status Date / Time codeine AdvReac Severe Vomiting Verified 12/13/21 11:44 albuterol AdvReac Rapid Verified 12/13/21 11:44 Heart Rate Penicillins AdvReac Rash/Hives Verified 12/13/21 11:44 Review of Systems ROS Statement: Those systems with pertinent positive or pertinent negative responses have been documented in the HPI. ROS Other: All systems not noted in ROS Statement are negative. Past Medical History Past Medical History: Coronary Artery Disease (CAD), Cancer, Chest Pain / Angina, Diabetes Mellitus, Hyperlipidemia, Hypertension, Myocardial Infarction ([place]), Osteoarthritis (OA), Pneumonia, Prostate Disorder, Skin Disorder, Sleep Apnea/CPAP/BIPAP Additional Past Medical History / Comment(s): degenerative arthritis, varicose veins, skin cancer, cullulitis x 2, Last Myocardial Infarction Date:: unknown History of Any Multi-Drug Resistant Organisms: None Reported Past Surgical History: Adenoidectomy, Bariatric Surgery, Heart Catheterization With Stent, Tonsillectomy Additional Past Surgical History / Comment(s): vasectomy, lap band, neck fusion, cysts removed from testicles x 2, lypoma removed rt side of abdomen, TOTAL RT KNEE, SKIN CA REMOVED. Past Anesthesia/Blood Transfusion Reactions: No Reported Reaction Date of Last Stent Placement:: 2013 Past Psychological History: Anxiety, Depression Past Alcohol Use History: Occasional Past Drug Use History: None Reported - Past Family History Father Family Medical History: Deep Vein Thrombosis (DVT) Additional Family Medical History / Comment(s): . Mother Family Medical History: Cancer Additional Family Medical History / Comment(s): Mother at age 83 from a stroke with history of valvular heart disease. Brother(s) Family Medical History: Cancer Additional Family Medical History / Comment(s): . Sister(s) Additional Family Medical History / Comment(s): Patient has 1 sister at age 83 from Alzheimer's dementia. Daughter(s) Additional Family Medical History / Comment(s): Patient has 2 daughters with no major medical problems. General Exam Limitations: no limitations General appearance: alert, in no apparent distress Head exam: Present: atraumatic, normocephalic, normal inspection Eye exam: Present: normal appearance, PERRL, EOMI. Absent: scleral icterus, conjunctival injection, periorbital swelling ENT exam: Present: normal exam, normal oropharynx, mucous membranes moist Neck exam: Present: normal inspection, full ROM. Absent: tenderness, meningismus, lymphadenopathy Respiratory exam: Present: normal lung sounds bilaterally. Absent: respiratory distress, wheezes, rales, rhonchi, stridor Cardiovascular Exam: Present: regular rate, normal rhythm, normal heart sounds. Absent: systolic murmur, diastolic murmur, rubs, gallop, clicks GI/Abdominal exam: Present: soft, normal bowel sounds. Absent: distended, tenderness, guarding, rebound, rigid Course Vital Signs 12/13/21 12/13/21 11:40 12:19 Temperature 98.2 F Pulse Rate 85 82 Respiratory 18 18 Rate Blood Pressure 135/77 121/78 O2 Sat by Pulse 94 L 95 Oximetry Medical Decision Making - Medical Decision Making Patient received monoclonal antibodies, will be discharged in stable condition return parameters discussed. Disposition Clinical Impression: COVID-19 Disposition: HOME SELF-CARE Condition: Stable Instructions (If sedation given, give patient instructions): COVID-19 (Coronavirus Disease 2019) (ED) Additional Instructions: Please return to the Emergency Department if symptoms worsen or any other concerns. Is patient prescribed a controlled substance at d/c from ED?: No Referrals: Sixto Vernon MD [Primary Care Provider] - 1-2 days Time of Disposition: 12:15
[2021-12-13 13:26] VITALS: BP 149/75; PULSE 83
== END 2021-12-13 13:26 | disposition home or self-care (01) ==
LOC: EC 11:32
DX: U07.1 COVID-19 (principal); I25.10 Atherosclerotic heart disease of native coronary artery without angina pectoris; E78.5 Hyperlipidemia, unspecified; I10 Essential (primary) hypertension; I25.2 Old myocardial infarction; Z88.1 Allergy status to other antibiotic agents; Z88.8 Allergy status to other drugs, medicaments and biological substances; Z88.0 Allergy status to penicillin
CPT/HCPCS: 99283; Q0222; 99284

== ENCOUNTER → 2023-01-11 | Outpatient (CLI) | payer MEDICARE ==
--- NOTE | 2023-01-11 13:26 | CTL ---
EXAMINATION TYPE: CT Low Dose Lung DATE OF EXAM ORDERED: 01/11/2023 HISTORY: Prostate cancer. Lung cancer screening. CT DLP: 90.[address] CTDI: 2.6 mGy Automated exposure control for dose reduction was used. SCREENING VISIT: First screening visit COMPARISON: Chest radiograph 06/01/2019 TECHNIQUE: Low dose computed tomography scan was performed through the chest at 1 mm thick sections a nd reconstructed images in multiple planes at 1 mm and [address] DIAGNOSTIC QUALITY: Satisfactory FINDINGS: LUNG NODULES: No clinically significant pulmonary nodules. LUNGS: COPD: Severity: None Fibrosis: Severity: None Lymph nodes: None Other findings: None RIGHT PLEURAL SPACE: Effusion: None Calcification: None Thickening: None Pneumothorax: None LEFT PLEURAL SPACE: Effusion: None Calcification: None Thickening: None Pneumothorax: None HEART: Heart Size: Normal Coronary Calcification: Moderate Pericardial Effusion: Trace OTHER FINDINGS: Upper abdomen: Gastric lap band Bony thorax: No acute osseous abnormality. Cervical fusion hardware partially visualized. Supraclavicular region: None Other: None IMPRESSION: No clinically significant pulmonary nodules. CT LUNG RAD AND CT CHEST RECOMMENDATION: Lung-Rad 1 Negative: Continue annual screening with LDCT in 12 months. S Modifier (other clinically significant findings): None
== END | disposition home or self-care (01) ==
LOC: RADCTMAIN 13:00
PROVIDERS: ATTEND Radiology Radiation Oncology
DX: Z12.2 Encounter for screening for malignant neoplasm of respiratory organs (principal); C61 Malignant neoplasm of prostate; Z98.84 Bariatric surgery status; Z87.891 Personal history of nicotine dependence
CPT/HCPCS: 71271

== ENCOUNTER 2023-01-30 20:27 | Inpatient (IN) | payer MEDICARE ==
[2023-01-30] MEDS ORDERED: ACETAMINOPHEN TAB 500 MG TAB PO STA ×2 (21:08→21:24)
[2023-01-30] MEDS ORDERED: SODIUM CHLORIDE 0.9% 1,000 ML IV ONE (21:08)
--- NOTE | 2023-01-30 21:14 | ED ---
General Adult HPI - General Chief complaint: Weakness Stated complaint: weakness, fever Time Seen by Provider: 01/30/23 20:59 Source: patient, RN notes reviewed, old records reviewed Mode of arrival: EMS Limitations: no limitations - History of Present Illness Initial comments: 72-year-old male presenting for evaluation of fever and weakness. Patient had contacted his primary care provider and states that his primary care provider felt that he may have influenza. He denies any cough or congestion. He does report fever and generalized weakness states he had a fall without injury earlier in the day. He does report increased urinary frequency and urgency. No prior history of UTI. No abdominal pain. No vomiting. - Related Data Home Medications Medication Instructions Recorded Confirmed Aspirin 81 mg PO DAILY 03/18/14 01/30/23 Atorvastatin Calcium [Lipitor] 80 mg PO HS 03/18/14 01/30/23 Metoprolol Succinate (ER) [Toprol 50 mg PO DAILY 03/18/14 01/30/23 XL] ALPRAZolam [Xanax] 0.5 mg PO BID PRN 06/01/19 01/30/23 FLUoxetine HCL [PROzac] 20 mg PO BID 06/01/19 01/30/23 Meloxicam 15 mg PO DAILY 06/01/19 01/30/23 Cefuroxime [Ceftin] 250 mg PO BID 01/30/23 01/30/23 Empagliflozin [Jardiance] 25 mg PO DAILY 01/30/23 01/30/23 Enalapril [Vasotec] 5 mg PO DAILY 01/30/23 01/30/23 Insulin Glargine,Hum.rec.anlog 20 units SQ 01/30/23 01/30/23 [[place]] Insulin Lispro [humaLOG Kwikpen] See Protocol SQ AC-TID 01/30/23 01/30/23 Nystatin [Nystop] 1 applic TOPICAL DAILY 01/30/23 01/30/23 Oxybutynin Chloride [oxyBUTYnin 10 mg PO HS 01/30/23 01/30/23 chloride ER] Semaglutide [Ozempic] 1 mg SQ TH 01/30/23 01/30/23 Tamsulosin [Flomax] 0.4 mg PO HS 01/30/23 01/30/23 metFORMIN HCL [Glucophage] 1,000 mg PO BID 01/30/23 01/30/23 Allergies Allergy/AdvReac Type Severity Reaction Status Date / Time codeine AdvReac Severe Vomiting Verified 01/30/23 22:31 albuterol AdvReac Rapid Verified 01/30/23 22:31 Heart Rate Penicillins AdvReac Rash/Hives Verified 01/30/23 22:31 Review of Systems ROS Statement: Those systems with pertinent positive or pertinent negative responses have been documented in the HPI. ROS Other: All systems not noted in ROS Statement are negative. Past Medical History Past Medical History: Coronary Artery Disease (CAD), Cancer, Chest Pain / Angina, Diabetes Mellitus, Hyperlipidemia, Hypertension, Myocardial Infarction (PR), Osteoarthritis (OA), Pneumonia, Prostate Disorder, Skin Disorder, Sleep Apnea/CPAP/BIPAP Additional Past Medical History / Comment(s): degenerative arthritis, varicose veins, skin cancer, cullulitis x 2, Last Myocardial Infarction Date:: unknown History of Any Multi-Drug Resistant Organisms: None Reported Past Surgical History: Adenoidectomy, Bariatric Surgery, Heart Catheterization With Stent, Tonsillectomy Additional Past Surgical History / Comment(s): vasectomy, lap band, neck fusion, cysts removed from testicles x 2, lypoma removed rt side of abdomen, TOTAL RT KNEE, SKIN CA REMOVED. Past Anesthesia/Blood Transfusion Reactions: No Reported Reaction Date of Last Stent Placement:: 2013 Past Psychological History: Anxiety, Depression Smoking Status: Former smoker Past Alcohol Use History: Rare Past Drug Use History: Marijuana - Past Family History Father Family Medical History: Deep Vein Thrombosis (DVT) Additional Family Medical History / Comment(s): . Mother Family Medical History: Cancer Additional Family Medical History / Comment(s): Mother at age 83 from a stroke with history of valvular heart disease. Brother(s) Family Medical History: Cancer Additional Family Medical History / Comment(s): . Sister(s) Additional Family Medical History / Comment(s): Patient has 1 sister at age 83 from Alzheimer's dementia. Daughter(s) Additional Family Medical History / Comment(s): Patient has 2 daughters with no major medical problems. General Exam Limitations: no limitations General appearance: alert, in no apparent distress Head exam: Present: atraumatic, normocephalic Eye exam: Present: normal appearance, PERRL ENT exam: Present: mucous membranes dry Neck exam: Present: normal inspection. Absent: tenderness Respiratory exam: Present: normal lung sounds bilaterally. Absent: respiratory distress, wheezes, rhonchi Cardiovascular Exam: Present: normal rhythm, tachycardia GI/Abdominal exam: Present: soft. Absent: distended, tenderness, guarding Neurological exam: Present: alert, oriented X3, CN II-XII intact. Absent: motor sensory deficit Skin exam: Present: warm, dry, intact. Absent: cyanosis, diaphoretic Course Vital Signs 01/30/23 01/30/23 20:30 20:39 Temperature 102.1 F H Pulse Rate 117 H Respiratory 16 Rate Blood Pressure 141/79 O2 Sat by Pulse 90 L 94 L Oximetry Medical Decision Making - Medical Decision Making Was pt. sent in by a medical professional or institution (, PA, DENTAL TREATMENT COORDINATOR, urgent care, hospital, or snf...) When possible be specific @ -No Did you speak to anyone other than the patient for history (EMS, parent, family, police, friend...)? What history was obtained from this source @ -No Did you review nursing and triage notes (agree or disagree)? Why? @ -I reviewed and agree with nursing and triage notes Were old charts reviewed (outside hosp., previous admission, EMS record, old EKG, old radiological studies, urgent care reports/EKG's, snf records)? Report findings @ -No old charts were reviewed Differential Diagnosis (chest pain, altered mental status, abdominal pain women, abdominal pain men, vaginal bleeding, weakness, fever, dyspnea, syncope, h eadache, dizziness, GI bleed, back pain, seizure, CVA, palpatations, mental health, musculoskeletal)? @ -Differential Fever: Pneumonia, viral URI, endocarditis, myocarditis, pericarditis, otitis, sinusitis, peritonsillar Abscess, retropharyngeal Abscess, epiglottitis, peritonitis, appendicitis, Reina cystitis, diverticulitis, hepatitis, colitis, UTI, PID, TOA, pyelonephritis, prostatitis, epididymitis, meningitis, encephalitis, pulmonary embolism, CVA, thyroid storm, pancreatitis, adrenal crisis, cavernous sinus thrombosis, this is not meant to be an all-inclusive list. EKG interpreted by me (3pts min.). @ Sinus tachycardia rate of 109, AL interval 161, QRS duration 110, QTC 413, no ST segment elevation X-rays interpreted by me (1pt min.). @ Chest x-ray No focal pneumonia CT interpreted by me (1pt min.). @ -None done U/S interpreted by me (1pt. min.). @ -None done What testing was considered but not performed or refused? (CT, X-rays, U/S, labs)? Why? @ -None What meds were considered but not given or refused? Why? @ -None Did you discuss the management of the patient with other professionals (prof belcher i.e. , PA, DENTAL TREATMENT COORDINATOR, lab, RT, psych nurse, 7th grade social studies teacher, specialty therapist, teacher, safety patrol officer, director of casework services)? Give summary @ -Case discussed with Emma brown for [facility] Was smoking cessation discussed for >3mins.? @ -No Was critical care preformed (if so, how long)? @ -No Were there social determinants of health that impacted care today? How? (Homelessness, low income, unemployed, alcoholism, drug addiction, transportation, low edu. Level, literacy, decrease access to med. care, senior living, rehab)? @ -No Was there de-escalation of care discussed even if they declined (Discuss DNR or withdrawal of care, Hospice)? DNR status @ -No What co-morbidities impacted this encounter? (DM, HTN, Smoking, COPD, CAD, Cancer, CVA, ARF, Chemo, Hep., AIDS, mental health diagnosis, sleep apnea, morbid obesity)? @ -Diabetes, hypertension Was patient admitted / discharged? Hospital course, mention meds given and route, prescriptions, significant lab abnormalities, going to OR and other pertinent info. @ -[72-year-old male presenting for evaluation of weakness, fever, urinary frequency and urgency. Urinalysis is positive. Urine culture and blood cultures are pending. He has no elevated white blood cell count at 19. He has a normal lactic acid. He will benefit from IV hydration and IV antibiotics. He started on ceftriaxone awaiting urine cultures. [facility]. Undiagnosed new problem with uncertain prognosis? @ -No Drug Therapy requiring intensive monitoring for toxicity (Heparin, Nitro, Insulin, Cardizem)? @ -No Were any procedures done? @ -No Diagnosis/symptom? @ -UTI with sepsis Acute, or Chronic, or Acute on Chronic? @Acute Uncomplicated (without systemic symptoms) or Complicated (systemic symptoms)? @ -default Side effects of treatment? @ -No Exacerbation, Progression, or Severe Exacerbation? @ -No Poses a threat to life or bodily function? How? (Chest pain, USA, PR, pneumonia, PE, COPD, DKA, ARF, appy, cholecystitis, CVA, Diverticulitis, Homicidal, Suicidal, threat to staff... and all critical care pts) @ -[Yes, septic shock - Lab Data Result diagrams: 01/30/23 21:45 01/30/23 21:45 Lab Results 01/30/23 01/30/23 01/30/23 Range/Units 20:54 21:45 21:45 WBC 18.9 H (3.8-10.6) k/uL RBC 4.58 (4.30-5.90) m/uL Hgb 14.4 (13.0-17.5) gm/dL Hct 41.6 (39.0-53.0) % MCV 90.9 (80.0-100.0) fL MCH 31.3 (25.0-35.0) pg MCHC 34.5 (31.0-37.0) g/dL RDW 14.9 (11.5-15.5) % Plt Count 150 (150-450) k/uL MPV 8.4 Neutrophils % 92 % Lymphocytes % 2 % Monocytes % 4 % Eosinophils % 0 % Basophils % 0 % Neutrophils # 17.5 H (1.3-7.7) k/uL Lymphocytes # 0.5 L (1.0-4.8) k/uL Monocytes # 0.8 (0-1.0) k/uL Eosinophils # 0.1 (0-0.7) k/uL Basophils # 0.0 (0-0.2) k/uL PT 13.5 H (9.0-12.0) sec INR 1.3 H (<1.2) APTT 24.0 (22.0-30.0) sec Sodium (137-145) mmol/L Potassium (3.5-5.1) mmol/L Chloride (98-107) mmol/L Carbon Dioxide (22-30) mmol/L Anion Gap mmol/L BUN (9-20) mg/dL Creatinine (0.66-1.25) mg/dL Est GFR (CKD-EPI)AfAm (>60 ml/min/1.73 sqM) Est GFR (CKD-EPI)NonAf (>60 ml/min/1.73 sqM) Glucose (74-99) mg/dL Plasma Lactic Acid Raghu (0.7-2.0) mmol/L Calcium (8.4-10.2) mg/dL Magnesium (1.6-2.3) mg/dL Total Bilirubin (0.2-1.3) mg/dL AST (17-59) U/L ALT (4-49) U/L Alkaline Phosphatase (38-126) U/L Total Protein (6.3-8.2) g/dL Albumin (3.5-5.0) g/dL Urine Color Yellow Urine Appearance Cloudy (Clear) Urine pH 5.5 (5.0-8.0) Ur Specific Penelope 1.033 (1.001-1.035) Urine Protein 1+ H (Negative) Urine Glucose (UA) 4+ H (Negative) Urine Ketones 1+ H (Negative) Urine Blood Large H (Negative) Urine Nitrite Positive (Negative) Urine Bilirubin Negative (Negative) Urine Urobilinogen <2.0 (<2.0) mg/dL Ur Leukocyte Esterase Large H (Negative) Urine RBC 39 H (0-5) /hpf Urine WBC 132 H (0-5) /hpf Urine WBC Clumps Few H (None) /hpf Urine Mucus Rare H (None) /hpf 01/30/23 01/30/23 Range/Units 21:45 21:45 WBC (3.8-10.6) k/uL RBC (4.30-5.90) m/uL Hgb (13.0-17.5) gm/dL Hct (39.0-53.0) % MCV (80.0-100.0) fL MCH (25.0-35.0) pg MCHC (31.0-37.0) g/dL RDW (11.5-15.5) % Plt Count (150-450) k/uL MPV Neutrophils % % Lymphocytes % % Monocytes % % Eosinophils % % Basophils % % Neutrophils # (1.3-7.7) k/uL Lymphocytes # (1.0-4.8) k/uL Monocytes # (0-1.0) k/uL Eosinophils # (0-0.7) k/uL Basophils # (0-0.2) k/uL PT (9.0-12.0) sec INR (<1.2) APTT (22.0-30.0) sec Sodium 133 L (137-145) mmol/L Potassium 3.6 (3.5-5.1) mmol/L Chloride 100 (98-107) mmol/L Carbon Dioxide 23 (22-30) mmol/L Anion Gap 10 mmol/L BUN 15 (9-20) mg/dL Creatinine 0.75 (0.66-1.25) mg/dL Est GFR (CKD-EPI)AfAm >90 (>60 ml/min/1.73 sqM) Est GFR (CKD-EPI)NonAf >90 (>60 ml/min/1.73 sqM) Glucose 145 H (74-99) mg/dL Plasma Lactic Acid Raghu 1.9 (0.7-2.0) mmol/L Calcium 8.9 (8.4-10.2) mg/dL Magnesium 1.4 L (1.6-2.3) mg/dL Total Bilirubin 1.9 H (0.2-1.3) mg/dL AST 23 (17-59) U/L ALT 22 (4-49) U/L Alkaline Phosphatase 68 (38-126) U/L Total Protein 6.0 L (6.3-8.2) g/dL Albumin 3.3 L (3.5-5.0) g/dL Urine Color Urine Appearance (Clear) Urine pH (5.0-8.0) Ur Specific Penelope (1.001-1.035) Urine Protein (Negative) Urine Glucose (UA) (Negative) Urine Ketones (Negative) Urine Blood (Negative) Urine Nitrite (Negative) Urine Bilirubin (Negative) Urine Urobilinogen (<2.0) mg/dL Ur Leukocyte Esterase (Negative) Urine RBC (0-5) /hpf Urine WBC (0-5) /hpf Urine WBC Clumps (None) /hpf Urine Mucus (None) /hpf Disposition Clinical Impression: Dehydration, UTI (urinary tract infection), Sepsis Disposition: ADMITTED IP TO THIS HOSP Condition: Stable Is patient prescribed a controlled substance at d/c from ED?: No Referrals: Kut,Sixto A [Primary Care Provider] - 1-2 days Time of Disposition: 22:56
[2023-01-30 21:25] LABS: Appearance,Urine Cloudy (Clear); Bilirubin,Urine Negative (Negative); Blood,Urine Large (Negative); Color,Urine Yellow; Glucose,Urine (UA) 4+ (Negative); Ketones,Urine 1+ (Negative); Leukocyte Esterase,Urine Large (Negative); Mucus,Urine Rare /hpf; Nitrite,Urine Positive (Negative); PH, Urine 5.5 (5.0-8.0); Protein,Urine 1+ (Negative); RBC,Urine 39 /hpf (0-5); Specific Gravity,Urine 1.033 (1.001-1.035); Urobilinogen,Urine <2.0 mg/dL (<2.0); WBC,Urine 132 /hpf (0-5)
[2023-01-30] MEDS ORDERED: cefTRIAXone IN SWFI 1,000 MG/10 ML SYRINGE IVP STA (21:34)
--- NOTE | 2023-01-30 21:45 | XR ---
EXAMINATION TYPE: XR chest 2V DATE OF EXAM: 01/30/2023 9:35 PM COMPARISON: Chest radiographs from 06/02/2019 TECHNIQUE: XR chest 2V Frontal and lateral views of the chest. CLINICAL INDICATION:Male, 72 years old with history of Weakness; FINDINGS: Lungs/Pleura: There is no evidence of pleural effusion, focal consolidation, or pneumothorax. Pulmonary vascularity: Unremarkable. Heart/mediastinum: Cardiomediastinal silhouette is unremarkable. Musculoskeletal: No acute osseous pathology. There is fixation hardware in the lower cervical spine. IMPRESSION: No acute cardiopulmonary disease/process.
[2023-01-30 22:32] LABS: ALT 22 U/L (4-49); AST 23 U/L (17-59); African American GFR (CKD) >90 (>60 ml/min/1.73 sqM); Albumin 3.3 g/dL (3.5-5.0); Alkaline Phosphatase 68 U/L (38-126); Anion Gap 10 mmol/L; Blood Urea Nitrogen 15 mg/dL (9-20); Calcium 8.9 mg/dL (8.4-10.2); Carbon Dioxide 23 mmol/L (22-30); Chloride 100 mmol/L (98-107); Glucose 145 mg/dL (74-99); Magnesium 1.4 mg/dL (1.6-2.3); Non-African American GFR(CKD) >90 (>60 ml/min/1.73 sqM); Potassium 3.6 mmol/L (3.5-5.1); Sodium 133 mmol/L (137-145); Total Bilirubin 1.9 mg/dL (0.2-1.3)
[2023-01-30 22:40] LABS: Basophils % (A) 0 %; Eosinophils # (A) 0.1 k/uL (0-0.7); Eosinophils % (A) 0 %; HCT 41.6 % (39.0-53.0); HGB 14.4 gm/dL (13.0-17.5); Lymphocytes # (A) 0.5 k/uL (1.0-4.8); Lymphocytes % (A) 2 %; MCH 31.3 pg (25.0-35.0); MCHC 34.5 g/dL (31.0-37.0); MCV 90.9 fL (80.0-100.0); Mean Platelet Volume 8.4; Monocytes # (A) 0.8 k/uL (0-1.0); Monocytes % (A) 4 %; Neutrophils # (A) 17.5 k/uL (1.3-7.7); Neutrophils % (A) 92 %; Platelet Count 150 k/uL (150-450); RBC 4.58 m/uL (4.30-5.90); RDW 14.9 % (11.5-15.5); WBC 18.9 k/uL (3.8-10.6)
[2023-01-30 22:45] LABS: INR 1.3 (<1.2); Prothrombin Time 13.5 sec (9.0-12.0)
[2023-01-30] MEDS ORDERED: MAGNESIUM SULFATE-D5W PMX 1 GM in DEXTROSE/WATER 1 100ML.BAG IVPB ONE (22:50)
[2023-01-30] MEDS ORDERED: ACETAMINOPHEN TAB 325 MG TAB PO PRN (22:52)
[2023-01-30] MEDS ORDERED: NALOXONE 0.4 MG/ML 1 ML VIAL IV PRN (22:52)
[2023-01-30] MEDS: SODIUM CHLORIDE 0.9% 1,000 ML IV SCH (23:52)
[2023-01-31 06:30] LABS: Glucose,Whole Blood 119 mg/dL (70-110)
[2023-01-31] MEDS ORDERED: ALPRAZolam 0.5 MG TAB PO PRN (07:18)
[2023-01-31] MEDS: INSULIN ASPART (NovoLOG) 100 UNIT/ML VIAL SQ SCH ×4 (07:44→21:05)
[2023-01-31] MEDS: SODIUM CHLORIDE 0.9% 1,000 ML IV SCH ×3 (07:46→15:59)
[2023-01-31] MEDS: metFORMIN 500 MG TAB PO SCH ×2 (08:14→21:04)
[2023-01-31] MEDS: lisinopriL 10 MG TAB PO SCH (08:14)
[2023-01-31] MEDS: METOPROLOL SUCCINATE (ER) 50 MG TAB.ER.24H PO SCH (08:14)
[2023-01-31] MEDS: MELOXICAM 7.5 MG TAB PO SCH (08:14)
[2023-01-31] MEDS: FLUoxetine HCL 20 MG CAP PO SCH ×2 (08:14→21:04)
[2023-01-31] MEDS: ASPIRIN 81 MG PO SCH (08:14)
[2023-01-31] MEDS: DAPAGLIFLOZIN PROPANEDIOL 10 MG TABLET PO SCH (08:20)
[2023-01-31] MEDS ORDERED: Magnesium Replacement Protocol 1 EACH MISC MISCELLANE PRN (09:37)
[2023-01-31] MEDS: NYSTATIN 100,000 UNIT/GM POWD 15 GM TOPICAL SCH (09:58)
[2023-01-31] MEDS: MAGNESIUM SULFATE-D5W PMX 1 GM in DEXTROSE/WATER 1 100ML.BAG IVPB SCH ×2 (10:35→12:17)
[2023-01-31 11:19] LABS: Glucose,Whole Blood 186 mg/dL (70-110)
--- NOTE | 2023-01-31 12:08 | P.HPIM ---
History of Present Illness H&P Date: 01/31/23 History of present illness; patient is a 72-year-old gentleman with past medical history significant for hypertension, hyperlipidemia, insulin-dependent diabetes mellitus who presented to the ER for generalized weakness and fever. Patient stated that he has not been feeling well for the last few days. Patient has been having fevers at home. Patient also having chills. Denies any cough. Denies any shortness of breath. Patient is complaining of generalized weakness, and had a fall, did not lose his consciousness. Patient was complaining of increased frequency of urination and urgency. Patient contacted his PCP who told him to come to the ER. Initial lab work done in the ER showed a PVC 18.9, hemoglobin 14.4, platelet count 150, INR 1.3, sodium 133, potassium 3.6, BUN 15, creatinine 0.75, magnesium 1.4, total bilirubin 1.9 UA showing large amount of leukocyte esterase, nitrite positive, WBC 132 Chest x-ray done in the ER no acute cardiac process Patient admitted to medicine service REVIEW OF SYSTEMS: CONSTITUTIONAL: As mentioned in HPI HEENT: No recent visual problems or hearing problems. Denied any sore throat. CARDIOVASCULAR: No chest pain, orthopnea, PND, no palpitations, no syncope. PULMONARY: No shortness of breath, no cough, no hemoptysis. GASTROINTESTINAL: No diarrhea, no nausea, no vomiting, no abdominal pain. NEUROLOGICAL: No headaches, no weakness, no numbness. HEMATOLOGICAL: Denies any bleeding or petechiae. GENITOURINARY: As mentioned in HPI MUSCULOSKELETAL/RHEUMATOLOGICAL: Denies any joint pain, swelling, or any muscle pain. ENDOCRINE: Denies any polyuria or polydipsia. The rest of the 14-point review of systems is negative. PHYSICAL EXAMINATION: GENERAL: The patient is alert and oriented x3, not in any acute distress. Well developed, well nourished. HEENT: Pupils are round and equally reacting to light. EOMI. No scleral icterus. No conjunctival pallor. Normocephalic, atraumatic. No pharyngeal erythema. No thyromegaly. CARDIOVASCULAR: S1 and S2 present. No murmurs, rubs, or gallops. PULMONARY: Chest is clear to auscultation, no wheezing or crackles. ABDOMEN: Soft, nontender, nondistended, normoactive bowel sounds. No palpable organomegaly. MUSCULOSKELETAL: No joint swelling or deformity. EXTREMITIES: No cyanosis, clubbing, or pedal edema. NEUROLOGICAL: Gross neurological examination did not reveal any focal deficits. SKIN: No rashes. Assessment and plan Sepsis UTI Hypomagnesemia Hyperlipidemia Hypertension Insulin-dependent diabetes mellitus Monitor vital signs Monitor CBC Monitor CMP Continue telemetry monitoring Blood cultures ordered Urine culture ordered Continue IV fluids Continue IV Rocephin Consulted ID Labs and medication were reviewed.. Continue same treatment. Continue with s ymptomatic treatment. Resume home medication. Monitor labs and vitals. DVT and GI prophylaxis. Further recommendations as per clinical course of the patient Dictation was produced using [employer] dictation software. please excuse any grammatical, word or spelling errors. Past Medical History Past Medical History: Coronary Artery Disease (CAD), Cancer, Chest Pain / Angina, Diabetes Mellitus, Hyperlipidemia, Hypertension, Myocardial Infarction ([place]), Osteoarthritis (OA), Pneumonia, Prostate Disorder, Skin Disorder, Sleep Apnea/CPAP/BIPAP Additional Past Medical History / Comment(s): degenerative arthritis, varicose veins, skin cancer, cullulitis x 2, Last Myocardial Infarction Date:: unknown History of Any Multi-Drug Resistant Organisms: None Reported Past Surgical History: Adenoidectomy, Bariatric Surgery, Heart Catheterization With Stent, Tonsillectomy Additional Past Surgical History / Comment(s): vasectomy, lap band, neck fusion, cysts removed from testicles x 2, lypoma removed rt side of abdomen, TOTAL RT KNEE, SKIN CA REMOVED. Past Anesthesia/Blood Transfusion Reactions: No Reported Reaction Date of Last Stent Placement:: 2013 Past Psychological History: Anxiety, Depression Smoking Status: Former smoker Past Alcohol Use History: Rare Additional Past Alcohol Use History / Comment(s): quit smoking 10 yrs ago, smoked 35 yrs Past Drug Use History: Marijuana - Past Family History Father Family Medical History: Deep Vein Thrombosis (DVT) Additional Family Medical History / Comment(s): . Mother Family Medical History: Cancer Additional Family Medical History / Comment(s): Mother at age 83 from a stroke with history of valvular heart disease. Brother(s) Family Medical History: Cancer Additional Family Medical History / Comment(s): . Sister(s) Additional Family Medical History / Comment(s): Patient has 1 sister at age 83 from Alzheimer's dementia. Daughter(s) Additional Family Medical History / Comment(s): Patient has 2 daughters with no major medical problems. Medications and Allergies Home Medications Medication Instructions Recorded Confirmed Type Aspirin 81 mg PO DAILY 03/18/14 01/30/23 History Atorvastatin Calcium [Lipitor] 80 mg PO HS 03/18/14 01/30/23 History Metoprolol Succinate (ER) [Toprol 50 mg PO DAILY 03/18/14 01/30/23 History XL] ALPRAZolam [Xanax] 0.5 mg PO BID PRN 06/01/19 01/30/23 History FLUoxetine HCL [PROzac] 20 mg PO BID 06/01/19 01/30/23 History Meloxicam 15 mg PO DAILY 06/01/19 01/30/23 History Cefuroxime [Ceftin] 250 mg PO BID 01/30/23 01/30/23 History Empagliflozin [Jardiance] 25 mg PO DAILY 01/30/23 01/30/23 History Enalapril [Vasotec] 5 mg PO DAILY 01/30/23 01/30/23 History Insulin Glargine,Hum.rec.anlog 20 units SQ HS 01/30/23 01/30/23 History [[place] Max Solostar] Insulin Lispro [humaLOG Kwikpen] See Protocol SQ AC-TID 01/30/23 01/30/23 History Nystatin [Nystop] 1 applic TOPICAL DAILY 01/30/23 01/30/23 History Oxybutynin Chloride [oxyBUTYnin 10 mg PO HS 01/30/23 01/30/23 History chloride ER] Semaglutide [Ozempic] 1 mg SQ TH 01/30/23 01/30/23 History Tamsulosin [Flomax] 0.4 mg PO HS 01/30/23 01/30/23 History metFORMIN HCL [Glucophage] 1,000 mg PO BID 01/30/23 01/30/23 History Allergies Allergy/AdvReac Type Severity Reaction Status Date / Time codeine AdvReac Severe Vomiting Verified 01/30/23 22:31 albuterol AdvReac Rapid Verified 01/30/23 22:31 Heart Rate Penicillins AdvReac Rash/Hives Verified 01/30/23 22:31 Physical Exam Vitals: Vital Signs Temp Pulse Pulse Resp BP BP Pulse Ox 01/31/23 08:49 99 01/31/23 08:00 98.7 F 68 17 102/64 99 01/31/23 01:34 98.1 F 86 18 101/64 95 01/30/23 22:39 98.2 F 92 16 128/73 95 01/30/23 20:39 94 L 01/30/23 20:30 102.1 F H 117 H 16 141/79 90 L Intake and Output 01/30/23 01/31/23 01/31/23 22:59 06:59 14:59 Other: # Voids 2 1 # Bowel Movements 2 Weight 113.398 kg 113.398 kg Results CBC & Chem 7: 01/30/23 21:45 01/30/23 21:45 Labs: Abnormal Lab Results - Last 24 Hours (Table) 01/30/23 01/30/23 01/30/23 Range/Units 20:54 21:45 21:45 WBC 18.9 H (3.8-10.6) k/uL Neutrophils # 17.5 H (1.3-7.7) k/uL Lymphocytes # 0.5 L (1.0-4.8) k/uL PT 13.5 H (9.0-12.0) sec INR 1.3 H (<1.2) Sodium (137-145) mmol/L Glucose (74-99) mg/dL POC Glucose (mg/dL) (70-110) mg/dL Magnesium (1.6-2.3) mg/dL Total Bilirubin (0.2-1.3) mg/dL Total Protein (6.3-8.2) g/dL Albumin (3.5-5.0) g/dL Urine Protein 1+ H (Negative) Urine Glucose (UA) 4+ H (Negative) Urine Ketones 1+ H (Negative) Urine Blood Large H (Negative) Ur Leukocyte Esterase Large H (Negative) Urine RBC 39 H (0-5) /hpf Urine WBC 132 H (0-5) /hpf Urine WBC Clumps Few H (None) /hpf Urine Mucus Rare H (None) /hpf 01/30/23 01/31/23 Range/Units 21:45 06:29 WBC (3.8-10.6) k/uL Neutrophils # (1.3-7.7) k/uL Lymphocytes # (1.0-4.8) k/uL PT (9.0-12.0) sec INR (<1.2) Sodium 133 L (137-145) mmol/L Glucose 145 H (74-99) mg/dL POC Glucose (mg/dL) 119 H (70-110) mg/dL Magnesium 1.4 L (1.6-2.3) mg/dL Total Bilirubin 1.9 H (0.2-1.3) mg/dL Total Protein 6.0 L (6.3-8.2) g/dL Albumin 3.3 L (3.5-5.0) g/dL Urine Protein (Negative) Urine Glucose (UA) (Negative) Urine Ketones (Negative) Urine Blood (Negative) Ur Leukocyte Esterase (Negative) Urine RBC (0-5) /hpf Urine WBC (0-5) /hpf Urine WBC Clumps (None) /hpf Urine Mucus (None) /hpf Thrombosis Risk Factor Assmnt - Choose All That Apply Any of the Below Risk Factors Present?: Yes Each Factor Represents 1 point: Obesity (BMI >25), Sepsis (< 1month) Other Risk Factors: Yes Each Risk Factor Represents 2 Points: Age 61-74 years Other congenital or acquired thrombophilia - If yes, enter type in comment: No Thrombosis Risk Factor Assessment Total Risk Factor Score: 4 Thrombosis Risk Factor Assessment Level: Moderate Risk
[2023-01-31 16:12] LABS: Glucose,Whole Blood 152 mg/dL (70-110)
[2023-01-31 20:24] LABS: Glucose,Whole Blood 221 mg/dL (70-110)
[2023-01-31] MEDS ORDERED: ATORVASTATIN 80 MG TAB PO SCH (21:00)
[2023-01-31] MEDS ORDERED: OXYBUTYNIN 10 MG TAB.ER.24 PO SCH (21:00)
[2023-01-31] MEDS ORDERED: INSULIN DETEMIR (LEVEMIR) 100 UNIT/ML SYR SQ SCH (21:00)
[2023-01-31] MEDS ORDERED: TAMSULOSIN 0.4 MG CAP.ER.24H PO SCH (21:00)
--- NOTE | 2023-01-31 22:12 | P.CONS ---
History of Present Illness - Reason for Consult Consult date: 01/31/23 - History of Present Illness Patient is a 72-year-old male with a past medical history negative for insulin-dependent Beatties mellitus hypertension hyperlipidemia presenting to the ER for evaluation of weakness and some mental status changes along with a fever patient's symptom has been going on for a day or 2 before presentation to the hospital and was complaining of generalized weakness but he did have a fall without any head injury or loss of consciousness patient did have a urinary frequency urgency and burning of urine but no suprapubic or flank pain patient has felt nauseated and did have an episode of vomiting no diarrhea or constipation on presentation to the hospital he did have a fever of 102 F mild tachycardia white count of 18.9 with a left shift kidney function was normal neuroexams are normal influenza RSV and COVID testing was negative urine was positive with large leukocyte esterase 132 WBC patient diagnosed with the UTI admitted to hospital chest x-ray was negative for acute infiltrate infectious he was consulted for further management underwent therapy patient did have a penici llin allergy with a rash Past Medical History Past Medical History: Coronary Artery Disease (CAD), Cancer, Chest Pain / Angina, Diabetes Mellitus, Hyperlipidemia, Hypertension, Myocardial Infarction ([place]), Osteoarthritis (OA), Pneumonia, Prostate Disorder, Skin Disorder, Sleep Apnea/CPAP/BIPAP Additional Past Medical History / Comment(s): degenerative arthritis, varicose veins, skin cancer, cullulitis x 2, Last Myocardial Infarction Date:: unknown History of Any Multi-Drug Resistant Organisms: None Reported Past Surgical History: Adenoidectomy, Bariatric Surgery, Heart Catheterization With Stent, Tonsillectomy Additional Past Surgical History / Comment(s): vasectomy, lap band, neck fusion, cysts removed from testicles x 2, lypoma removed rt side of abdomen, TOTAL RT KNEE, SKIN CA REMOVED. Past Anesthesia/Blood Transfusion Reactions: No Reported Reaction Date of Last Stent Placement:: 2013 Past Psychological History: Anxiety, Depression Smoking Status: Former smoker Past Alcohol Use History: Rare Additional Past Alcohol Use History / Comment(s): quit smoking 10 yrs ago, smoked 35 yrs Past Drug Use History: Marijuana - Past Family History Father Family Medical History: Deep Vein Thrombosis (DVT) Additional Family Medical History / Comment(s): . Mother Family Medical History: Cancer Additional Family Medical History / Comment(s): Mother at age 83 from a stroke with history of valvular heart disease. Brother(s) Family Medical History: Cancer Additional Family Medical History / Comment(s): . Sister(s) Additional Family Medical History / Comment(s): Patient has 1 sister at age 83 from Alzheimer's dementia. Daughter(s) Additional Family Medical History / Comment(s): Patient has 2 daughters with no major medical problems. Medications and Allergies Home Medications Medication Instructions Recorded Confirmed Type Aspirin 81 mg PO DAILY 03/18/14 01/30/23 History Atorvastatin Calcium [Lipitor] 80 mg PO HS 03/18/14 01/30/23 History Metoprolol Succinate (ER) [Toprol 50 mg PO DAILY 03/18/14 01/30/23 History XL] ALPRAZolam [Xanax] 0.5 mg PO BID PRN 06/01/19 01/30/23 History FLUoxetine HCL [PROzac] 20 mg PO BID 06/01/19 01/30/23 History Meloxicam 15 mg PO DAILY 06/01/19 01/30/23 History Cefuroxime [Ceftin] 250 mg PO BID 01/30/23 01/30/23 History Empagliflozin [Jardiance] 25 mg PO DAILY 01/30/23 01/30/23 History Enalapril [Vasotec] 5 mg PO DAILY 01/30/23 01/30/23 History Insulin Glargine,Hum.rec.anlog 20 units SQ HS 01/30/23 01/30/23 History [Toujeo Ryan Solostar] Insulin Lispro [humaLOG Kwikpen] See Protocol SQ AC-TID 01/30/23 01/30/23 History Nystatin [Nystop] 1 applic TOPICAL DAILY 01/30/23 01/30/23 History Oxybutynin Chloride [oxyBUTYnin 10 mg PO HS 01/30/23 01/30/23 History chloride ER] Semaglutide [Ozempic] 1 mg SQ TH 01/30/23 01/30/23 History Tamsulosin [Flomax] 0.4 mg PO HS 01/30/23 01/30/23 History metFORMIN HCL [Glucophage] 1,000 mg PO BID 01/30/23 01/30/23 History Allergies Allergy/AdvReac Type Severity Reaction Status Date / Time codeine AdvReac Severe Vomiting Verified 01/30/23 22:31 albuterol AdvReac Rapid Verified 01/30/23 22:31 Heart Rate Penicillins AdvReac Rash/Hives Verified 01/30/23 22:31 Physical Exam Vitals: Vital Signs Temp Pulse Pulse Resp BP BP Pulse Ox 01/31/23 08:49 99 01/31/23 08:00 98.7 F 68 17 102/64 99 01/31/23 01:34 98.1 F 86 18 101/64 95 01/30/23 22:39 98.2 F 92 16 128/73 95 01/30/23 20:39 94 L 01/30/23 20:30 102.1 F H 117 H 16 141/79 90 L Intake and Output 01/30/23 01/31/23 01/31/23 22:59 06:59 14:59 Other: # Voids 2 1 # Bowel Movements 1 Weight 113.398 kg 113.398 kg Results CBC & Chem 7: 01/30/23 21:45 01/30/23 21:45 Labs: Abnormal Lab Results - Last 24 Hours (Table) 01/30/23 01/30/23 01/30/23 Range/Units 20:54 21:45 21:45 WBC 18.9 H (3.8-10.6) k/uL Neutrophils # 17.5 H (1.3-7.7) k/uL Lymphocytes # 0.5 L (1.0-4.8) k/uL PT 13.5 H (9.0-12.0) sec INR 1.3 H (<1.2) Sodium (137-145) mmol/L Glucose (74-99) mg/dL POC Glucose (mg/dL) (70-110) mg/dL Magnesium (1.6-2.3) mg/dL Total Bilirubin (0.2-1.3) mg/dL Total Protein (6.3-8.2) g/dL Albumin (3.5-5.0) g/dL Urine Protein 1+ H (Negative) Urine Glucose (UA) 4+ H (Negative) Urine Ketones 1+ H (Negative) Urine Blood Large H (Negative) Ur Leukocyte Esterase Large H (Negative) Urine RBC 39 H (0-5) /hpf Urine WBC 132 H (0-5) /hpf Urine WBC Clumps Few H (None) /hpf Urine Mucus Rare H (None) /hpf 01/30/23 01/31/23 01/31/23 Range/Units 21:45 06:29 11:17 WBC (3.8-10.6) k/uL Neutrophils # (1.3-7.7) k/uL Lymphocytes # (1.0-4.8) k/uL PT (9.0-12.0) sec INR (<1.2) Sodium 133 L (137-145) mmol/L Glucose 145 H (74-99) mg/dL POC Glucose (mg/dL) 119 H 186 H (70-110) mg/dL Magnesium 1.4 L (1.6-2.3) mg/dL Total Bilirubin 1.9 H (0.2-1.3) mg/dL Total Protein 6.0 L (6.3-8.2) g/dL Albumin 3.3 L (3.5-5.0) g/dL Urine Protein (Negative) Urine Glucose (UA) (Negative) Urine Ketones (Negative) Urine Blood (Negative) Ur Leukocyte Esterase (Negative) Urine RBC (0-5) /hpf Urine WBC (0-5) /hpf Urine WBC Clumps (None) /hpf Urine Mucus (None) /hpf Assessment and Plan Plan: 1patient was in the hospital with sepsis in this patient with a fever tachycardia elevated white count significant urinary symptoms likely secondary to urinary source underlying complicated UTI not entirely excluded likely from enteric gram-negative pathogen 2-we will obtain ultrasound of the kidney bladder every to make sure evidence of any structural abnormality 3-increase Rocephin to 2 g daily and follow-up on the culture We will follow on clinical condition and cultures to further adjust medication if needed Thank you for this consultation we will follow the patient along with you Dictation was produced using [employer] dictation software. please excuse any grammatical, word or spelling errors. Time with Patient: Greater than 30
[2023-02-01] MEDS: SODIUM CHLORIDE 0.9% 1,000 ML IV SCH ×3 (01:47→12:14)
[2023-02-01 05:36] LABS: Glucose,Whole Blood 114 mg/dL (70-110)
--- NOTE | 2023-02-01 07:44 | US ---
EXAMINATION TYPE: US kidneys/renal and bladder DATE OF EXAM: 02/01/2023 COMPARISON: NONE CLINICAL INDICATION: Male, 72 years old with history of uti and bacteremia; UTI and bacteremia EXAM MEASUREMENTS: Right Kidney: 10.7 x 5.7 x 6.3 cm Left Kidney: 13.4 x 5.6 x 4.3 cm Right Kidney: no evidence of hydronephrosis Left Kidney: cystic area mid = 3.4 x 3.6 x 3.5cm Bladder: small amount of debris noted Bilateral Jets seen: yes There is no evidence for hydronephrosis at this point in time. No nephrolithiasis is seen. Corticom edullary differentiation is maintained. Left renal sinus cyst measuring up to 3.6 cm. No masses are i dentified. No perinephric fluid collections. The urinary bladder is anechoic with small amount of de bris. Bilateral ureteral jets are seen. IMPRESSION: 1. No hydronephrosis or nephrolithiasis. 2. Small amount of nonspecific debris layering within the urinary bladder. Correlate with urinalysis.
[2023-02-01] MEDS ORDERED: NON FORMULARY DRUG (Semaglutide [Ozempic] 1 MG/0.75 ML Each) SQ SCH (09:00)
[2023-02-01] MEDS: metFORMIN 500 MG TAB PO SCH (09:35)
[2023-02-01] MEDS: FLUoxetine HCL 20 MG CAP PO SCH (09:35)
[2023-02-01] MEDS: DAPAGLIFLOZIN PROPANEDIOL 10 MG TABLET PO SCH (09:35)
[2023-02-01] MEDS: lisinopriL 10 MG TAB PO SCH (09:35)
[2023-02-01] MEDS: MELOXICAM 7.5 MG TAB PO SCH (09:35)
[2023-02-01] MEDS: METOPROLOL SUCCINATE (ER) 50 MG TAB.ER.24H PO SCH (09:35)
[2023-02-01] MEDS: ASPIRIN 81 MG PO SCH (09:35)
[2023-02-01] MEDS: NYSTATIN 100,000 UNIT/GM POWD 15 GM TOPICAL SCH (09:39)
[2023-02-01 10:55] LABS: Basophils # (A) 0.02 X 10*3/uL (0.00-0.10); Basophils % (A) 0.2 %; HGB 12.6 d/dL (13.0-17.0); MCH 30.3 pg (27.0-32.0); MCHC 34.1 d/dL (32.0-37.0); MCV 88.9 FL (80.0-97.0); Mean Platelet Volume 11.2 FL (9.5-12.2); Monocytes # (A) 1.33 X 10*3/uL (0.20-1.00); Monocytes % (A) 13.4 %; NRBC Per 100 WBC 0 X 10*3/uL (0.00-0.01); Neutrophils # (A) 7.26 X 10*3/uL (1.80-7.70); Neutrophils % (A) 72.9 %; Platelet Count 153 X 10*3/uL (140-440); RBC 4.16 X 10*6/uL (4.40-5.60); RDW 16.5 % (11.5-14.5); WBC 9.96 X 10*3/uL (4.50-10.00)
[2023-02-01 11:03] LABS: ALT 35 U/L (10-49); AST 32 U/L (14-35); Albumin 3.2 d/dL (3.8-4.9); Albumin/Globulin Ratio 1.52 Ratio (1.60-3.17); Alkaline Phosphatase 64 U/L (41-126); BUN/Creat Ratio 22.29 Ratio (12.00-20.00); Blood Urea Nitrogen 15.6 mg/dL (9.0-27.0); Calcium 8.6 mg/dL (8.7-10.3); Carbon Dioxide 24.6 mmol/L (21.6-31.8); Chloride 105 mmol/L (96-109); Globulin 2.1 d/dL (1.6-3.3); Glucose 108 mg/dL (70-110); Magnesium 2.1 mg/dL (1.5-2.4); Potassium 3.7 mmol/L (3.5-5.5); Sodium 139 mmol/L (135-145); Total Bilirubin 0.4 mg/dL (0.3-1.2); Total Protein 5.3 d/dL (6.2-8.2)
[2023-02-01 11:09] LABS: Glucose,Whole Blood 161 mg/dL (70-110)
[2023-02-01] MEDS: INSULIN ASPART (NovoLOG) 100 UNIT/ML VIAL SQ SCH (12:15)
--- NOTE | 2023-02-01 12:33 | P.DS ---
Providers Date of admission: 01/30/23 22:52 Expected date of discharge: 02/01/23 Attending physician: Tammi Lima Consults: 01/31/23 09:29 Consult Physician Routine Consulting Provider: Nimco Felix Consult Reason/Comments: UTI Do you want consulting provider notified?: Yes Primary care physician: Sixto Vernon [facility] Course: Discharge diagnoses; Sepsis UTI Hypomagnesemia Hyperlipidemia Hypertension Insulin-dependent diabetes mellitus Hospital course; patient is a 72-year-old gentleman with past medical history significant for hypertension, hyperlipidemia, insulin-dependent diabetes mellitus who presented to the ER for generalized weakness and fever. Patient stated that he has not been feeling well for the last few days. Patient has been having fevers at home. Patient also having chills. Denies any cough. Denies any shortness of breath. Patient is complaining of generalized weakness, and had a fall, did not lose his consciousness. Patient was complaining of increased frequency of urination and urgency. Patient contacted his PCP who told him to come to the ER. Initial lab work done in the ER showed a PVC 18.9, hemoglobin 14.4, platelet count 150, INR 1.3, sodium 133, potassium 3.6, BUN 15, creatinine 0.75, magnesium 1.4, total bilirubin 1.9 UA showing large amount of leukocyte esterase, nitrite positive, WBC 132 Chest x-ray done in the ER no acute cardiac process Patient admitted to medicine service 02/01. Patient seen and examined. Patient doing much better, patient continued to be afebrile. ID recommended discharging patient on oral Ceftin for 10 days. PHYSICAL EXAMINATION: GENERAL: The patient is alert and oriented x3, not in any acute distress. Well developed, well nourished. HEENT: Pupils are round and equally reacting to light. EOMI. No scleral icterus. No conjunctival pallor. Normocephalic, atraumatic. No pharyngeal erythema. No thyromegaly. CARDIOVASCULAR: S1 and S2 present. No murmurs, rubs, or gallops. PULMONARY: Chest is clear to auscultation, no wheezing or crackles. ABDOMEN: Soft, nontender, nondistended, normoactive bowel sounds. No palpable organomegaly. MUSCULOSKELETAL: No joint swelling or deformity. EXTREMITIES: No cyanosis, clubbing, or pedal edema. NEUROLOGICAL: Gross neurological examination did not reveal any focal deficits. SKIN: No rashes. Dictation was produced using [employer] dictation software. please excuse any grammatical, word or spelling errors. Patient Condition at Discharge: Stable Plan - Discharge Summary New Discharge Prescriptions: New cefUROXime axetiL [Ceftin] 500 mg PO BID 10 Days #20 tab Continue Metoprolol Succinate (ER) [Toprol XL] 50 mg PO DAILY Aspirin 81 mg PO DAILY Atorvastatin Calcium [Lipitor] 80 mg PO HS Meloxicam 15 mg PO DAILY FLUoxetine HCL [PROzac] 20 mg PO BID ALPRAZolam [Xanax] 0.5 mg PO BID PRN PRN Reason: Anxiety Empagliflozin [Jardiance] 25 mg PO DAILY Oxybutynin Chloride [oxyBUTYnin chloride ER] 10 mg PO HS Tamsulosin [Flomax] 0.4 mg PO HS Insulin Lispro [humaLOG Kwikpen] See Protocol SQ AC-TID Semaglutide [Ozempic] 1 mg SQ TH Nystatin [Nystop] 1 applic TOPICAL DAILY Enalapril [Vasotec] 5 mg PO DAILY metFORMIN HCL [Glucophage] 1,000 mg PO BID Insulin Glargine,Hum.rec.anlog [Toujeo Max Solostar] 20 units SQ HS Discontinued Cefuroxime [Ceftin] 250 mg PO BID Discharge Medication List Aspirin 81 mg PO DAILY 03/18/14 [History] Atorvastatin Calcium [Lipitor] 80 mg PO HS 03/18/14 [History] Metoprolol Succinate (ER) [Toprol XL] 50 mg PO DAILY 03/18/14 [History] ALPRAZolam [Xanax] 0.5 mg PO BID PRN 06/01/19 [History] FLUoxetine HCL [PROzac] 20 mg PO BID 06/01/19 [History] Meloxicam 15 mg PO DAILY 06/01/19 [History] Empagliflozin [Jardiance] 25 mg PO DAILY 01/30/23 [History] Enalapril [Vasotec] 5 mg PO DAILY 01/30/23 [History] Insulin Glargine,Hum.rec.anlog [Toujeo Max Solostar] 20 units SQ HS 01/30/23 [History] Insulin Lispro [humaLOG Kwikpen] See Protocol SQ AC-TID 01/30/23 [History] Nystatin [Nystop] 1 applic TOPICAL DAILY 01/30/23 [History] Oxybutynin Chloride [oxyBUTYnin chloride ER] 10 mg PO HS 01/30/23 [History] Semaglutide [Ozempic] 1 mg SQ TH 01/30/23 [History] Tamsulosin [Flomax] 0.4 mg PO HS 01/30/23 [History] metFORMIN HCL [Glucophage] 1,000 mg PO BID 01/30/23 [History] cefUROXime axetiL [Ceftin] 500 mg PO BID 10 Days #20 tab 02/01/23 [Rx] Follow up Appointment(s)/Referral(s): Sixto Vernon [Primary Care Provider] - 1-2 days Nimco Felix MD [STAFF PHYSICIAN] - 1 Week Discharge Disposition: HOME SELF-CARE
[2023-02-01 14:01] VITALS: BP 114/71; PULSE 52; RESP 18; TEMP 97.8
== END 2023-02-01 15:07 | disposition home or self-care (01) | DRG 872 ==
LOC: EC 20:27 → 4SSUR 22:52
PROVIDERS: ADMIT Hospitalist; ATTEND Hospitalist
DX: A41.89 Other specified sepsis (principal); N39.0 Urinary tract infection, site not specified; E11.9 Type 2 diabetes mellitus without complications; I10 Essential (primary) hypertension; E86.0 Dehydration; B96.1 Klebsiella pneumoniae [K. pneumoniae] as the cause of diseases classified elsewhere; I25.10 Atherosclerotic heart disease of native coronary artery without angina pectoris; E78.5 Hyperlipidemia, unspecified; E83.42 Hypomagnesemia; I49.3 Ventricular premature depolarization; G47.30 Sleep apnea, unspecified; W19.XXXA Unspecified fall, initial encounter; Z20.822 Contact with and (suspected) exposure to COVID-19; Z96.651 Presence of right artificial knee joint; Z79.4 Long term (current) use of insulin; Z28.311 Partially vaccinated for COVID-19; Z87.891 Personal history of nicotine dependence; Z98.84 Bariatric surgery status; I25.2 Old myocardial infarction; Z79.84 Long term (current) use of oral hypoglycemic drugs; Z79.85 Long-term (current) use of injectable non-insulin antidiabetic drugs; Z79.1 Long term (current) use of non-steroidal anti-inflammatories (NSAID); Z79.82 Long term (current) use of aspirin; Z95.5 Presence of coronary angioplasty implant and graft; Z88.0 Allergy status to penicillin; Z98.1 Arthrodesis status; Z88.8 Allergy status to other drugs, medicaments and biological substances; Z88.5 Allergy status to narcotic agent; Z79.899 Other long term (current) drug therapy
CPT/HCPCS: 36415; 71046; 76770; 80053; 81001; 83605; 83735; 85025; 85610; 85730; 87040; 87077; 87086; 87186; 87636; 93005; 94760; 96361; 96365; 96375; 99285

== ENCOUNTER → 2023-02-02 | Outpatient (CLI) | payer MEDICARE ==
--- NOTE | 2023-02-04 15:29 | MR ---
EXAMINATION TYPE: MR Prostate wo/w con DATE OF EXAM: 02/02/2023 9:09 AM COMPARISON: None. CLINICAL INDICATION:Male, 72 years old with history of C61 PROSTATE CANCER; TECHNIQUE: Multi-planar, multi-sequence imaging of the pelvis is performed prior to and following the uncomplicated administration of bolus intravenous gadolinium. CONTRAST: 11ml Gadavist Interpretive Criteria: PI-RADS v2.1 SERUM PSA: 1.3 on 10/28/2022 (fax is difficult to read) 1.17 on 05/14/2022. 0.9 on 07/14/2017. 1.2 on 06/14/2021. SURGICAL PATHOLOGY: Positive biopsy with Concord score up to 7 on the right side of the prostate gland and Gary score 6 on the the left apex FINDINGS: Prostatic dimensions: 4.5 x 4.8 x 3.7 cm. "Bullet" Volume:52.31 (PSA density=0.02 ng/mL/mL) CENTRAL GLAND (Central and Transition Zones/CZ+TZ): Multiple bilateral, heterogenous appearing hypertrophic stromal nodules, without suspicious lesion. M edian lobe hypertrophy with protrusion into the base of the bladder. (PI-RADS 2) PERIPHERAL ZONE (PZ): Heterogenous low ADC/high DWI signal within the right posterior lateral mid gland which bulges the co ntour measuring 18 x 15 mm and extends along the contour of at least 18 mm in length (PI-RADS 5) No suspicious lesion within the left prostate gland to correlate with biopsy. SEMINAL VESICLES (SV): High T1 signal within the left seminal vesicles compatible with proteinaceous contents and/or the pro ximal to be secondary to recent biopsy on 12/11/2022.. PERIPROSTATIC TISSUES: Unremarkable. LYMPH NODES: No enlarged pelvic lymph node. REMAINING PELVIS: Bladder wall is within normal limits given distention. No abnormal free or organized intrapelvic fluid collection. Similar circumferential rectal wall thickening measuring up to 12 mm. Suspected postbiopsy changes to the rectum. Bilateral fatty changes to the inguinal canals. OSSEOUS STRUCTURES: No suspicious osseous abnormality. IMPRESSION: 1. PI-RADS 5 lesion right peripheral zone mid gland measuring up to 18 x 15 mm. There is bulging of t he contour of the peripheral zone in this area. No definitive lesion to correlate with the left prost ate gland positive biopsy. 2. Moderate BPH, estimated gland volume 52.31 mL. 3. No suspicious osseous lesion. No lymphadenopathy. No evidence of prostate adenocarcinoma involving the periprostatic tissues. 4. Circumferential rectal wall thickening which could related to proctitis in the setting of a recent on 12/11/2022.
== END | disposition home or self-care (01) ==
LOC: RADMRIMAIN 07:51
PROVIDERS: ATTEND Radiology Radiation Oncology
DX: C61 Malignant neoplasm of prostate (principal); N40.0 Benign prostatic hyperplasia without lower urinary tract symptoms
CPT/HCPCS: 72197; A9585

== ENCOUNTER → 2023-02-13 | Outpatient (CLI) | payer MEDICARE | END | disposition home or self-care (01) | LOC: LABWHC1 10:54 | PROVIDERS: ATTEND Family Medicine | DX: Z53.9 Procedure and treatment not carried out, unspecified reason (principal) ==

== ENCOUNTER → 2023-02-13 | Outpatient (CLI) | payer MEDICARE ==
[2023-02-13 15:33] LABS: Basophils # (A) 0.05 X 10*3/uL (0.00-0.10); Basophils % (A) 0.6 %; Eosinophils # (A) 0.15 X 10*3/uL (0.04-0.35); Eosinophils % (A) 1.9 %; HCT 43.2 % (39.6-50.0); HGB 13.8 d/dL (13.0-17.0); Lymphocytes # (A) 1.42 X 10*3/uL (0.90-5.00); Lymphocytes % (A) 17.8 %; MCH 29.6 pg (27.0-32.0); MCHC 31.9 d/dL (32.0-37.0); MCV 92.7 FL (80.0-97.0); Mean Platelet Volume 10.2 FL (9.5-12.2); Monocytes # (A) 0.68 X 10*3/uL (0.20-1.00); Monocytes % (A) 8.5 %; NRBC Per 100 WBC 0 X 10*3/uL (0.00-0.01); Neutrophils # (A) 5.63 X 10*3/uL (1.80-7.70); Neutrophils % (A) 70.7 %; Platelet Count 348 X 10*3/uL (140-440); RBC 4.66 X 10*6/uL (4.40-5.60); RDW 16.1 % (11.5-14.5); WBC 7.97 X 10*3/uL (4.50-10.00)
[2023-02-13 15:46] LABS: Blood Urea Nitrogen 22.4 mg/dL (9.0-27.0); Carbon Dioxide 29.3 mmol/L (21.6-31.8); Chloride 102 mmol/L (96-109); Glucose 64 mg/dL (70-110); Potassium 4.5 mmol/L (3.5-5.5); Sodium 140 mmol/L (135-145)
[2023-02-13 16:49] LABS: Appearance,Urine Clear (Clear); Bilirubin,Urine Negative (Negative); Blood,Urine Negative (Negative); Color,Urine Yellow (Yellow); Ketones,Urine Trace (Negative); Nitrite,Urine Negative (Negative); PH, Urine 5.5; Specific Gravity,Urine >1.035 (1.001-1.030); Urobilinogen,Urine 0.2
== END | disposition home or self-care (01) ==
LOC: LABPAT 09:46
PROVIDERS: ATTEND Urology
DX: Z01.812 Encounter for preprocedural laboratory examination (principal); C61 Malignant neoplasm of prostate; R31.29 Other microscopic hematuria
CPT/HCPCS: 80048; 81003; 85025

== ENCOUNTER 2023-02-15 10:03 | Day surgery (SDC) | payer MEDICARE ==
[2023-02-14 12:04] VITALS: BMI 36.0
--- NOTE | 2023-02-14 13:28 | P.GSHP ---
History of Present Illness H&P Date: 02/14/23 72 yo male with doigmosis of prostate cancer g 4+3, 11/03,psa 1.3, 30 ml prostate,prolaris 5.2 who comes for space oar to ebrt. He has started lhrh. - Constitutional Constitutional: Denies chills, Denies fever - EENT Eyes: denies blurred vision, denies pain Ears, nose, mouth and throat: Denies headache, Denies sore throat - Cardiovascular Cardiovascular: Denies chest pain, Denies shortness of breath - Respiratory Respiratory: Denies cough, Denies 7 - Gastrointestinal Gastrointestinal: Denies abdominal pain, Denies diarrhea, Denies nausea, Denies vomiting - Genitourinary (Female) Genitourinary: Denies dysuria, Denies hematuria - Genitourinary (Male) Genitourinary: Denies dysuria, Denies hematuria - Musculoskeletal Musculoskeletal: Denies myalgias - Integumentary Integumentary: Denies pruritus, Denies rash - Neurological Neurological: Denies numbness, Denies weakness - Psychiatric Psychiatric: Denies anxiety, Denies depression - Endocrine Endocrine: Denies fatigue, Denies weight change Past Medical History Past Medical History: Coronary Artery Disease (CAD), Cancer, Chest Pain / Angina, Diabetes Mellitus, Hyperlipidemia, Hypertension, Myocardial Infarction ([place]), Osteoarthritis (OA), Pneumonia, Prostate Disorder, Skin Disorder, Sleep Apnea/CPAP/BIPAP Additional Past Medical History / Comment(s): prostate CA dx 2021-see oncologist 02-20-23, Jan 2023 admission to [facility] for UTI/sepsis, wears anCGM-continuous glucose monitor, degenerative arthritis, varicose veins, skin cancer, cullulitis x 2, no cpap-sleep apnea resolved after 100 lb wt loss Last Myocardial Infarction Date:: unknown History of Any Multi-Drug Resistant Organisms: None Reported Past Surgical History: Adenoidectomy, Bariatric Surgery, Heart Catheterization With Stent, Tonsillectomy Additional Past Surgical History / Comment(s): vasectomy, lap band, neck fusion, cysts removed from testicles x 2, lypoma removed rt side of abdomen, TOTAL RT KNEE, SKIN CA REMOVED,heart caths x2 w/ 3 stents Past Anesthesia/Blood Transfusion Reactions: No Reported Reaction Additional Past Anesthesia/Blood Transfusion Reaction / Comment(s): no hx blood transfusion Date of Last Stent Placement:: 2013 Smoking Status: Former smoker - Past Family History Father Family Medical History: Coronary Artery Disease (CAD), CVA/TIA, Deep Vein Thrombosis (DVT) Additional Family Medical History / Comment(s): with a CVA,cabg Mother Family Medical History: Cancer Additional Family Medical History / Comment(s): Mother at age 83 from a stroke with history of valvular heart disease,tx w/ chemo for elevated platelet ct. . Brother(s) Family Medical History: Cancer Additional Family Medical History / Comment(s): . Sister(s) Additional Family Medical History / Comment(s): Patient has 1 sister at age 83 from Alzheimer's dementia. Daughter(s) Additional Family Medical History / Comment(s): Patient has 2 daughters with no major medical problems. Medications and Allergies Home Medications Medication Instructions Recorded Confirmed Type Aspirin 81 mg PO HS 03/18/14 02/14/23 History Atorvastatin Calcium [Lipitor] 80 mg PO HS 03/18/14 02/14/23 History Metoprolol Succinate (ER) [Toprol 50 mg PO DAILY 03/18/14 02/14/23 History XL] ALPRAZolam [Xanax] 0.5 mg PO BID PRN 06/01/19 02/14/23 History FLUoxetine HCL [PROzac] 20 mg PO BID 06/01/19 02/14/23 History Meloxicam 15 mg PO DAILY 06/01/19 02/14/23 History Empagliflozin [Jardiance] 25 mg PO DAILY 01/30/23 02/14/23 History Enalapril [Vasotec] 5 mg PO QAM 01/30/23 02/14/23 History Insulin Glargine,Hum.rec.anlog 20 units SQ HS 01/30/23 02/14/23 History [Toujeo Max Solostar] Insulin Lispro [humaLOG Kwikpen] 0 - 5 unit SQ W/BRKFST PRN 01/30/23 02/14/23 History Nystatin [Nystop] 1 applic TOPICAL Q3D 01/30/23 02/14/23 History Oxybutynin Chloride [oxyBUTYnin 10 mg PO HS 01/30/23 02/14/23 History chloride ER] Semaglutide [Ozempic] 1 mg SQ TH 01/30/23 02/14/23 History Tamsulosin [Flomax] 0.4 mg PO BID 01/30/23 02/14/23 History metFORMIN HCL [Glucophage] 1,000 mg PO BID 01/30/23 02/14/23 History Insulin Lispro [humaLOG Kwikpen] 0 - 8 unit SQ W/SUPPER PRN 02/14/23 02/14/23 History Allergies Allergy/AdvReac Type Severity Reaction Status Date / Time codeine AdvReac Severe Vomiting Verified 02/14/23 11:44 albuterol AdvReac Rapid Verified 02/14/23 11:44 Heart Rate(needed meds to bring hr down) Penicillins AdvReac Rash/Hives Verified 02/14/23 11:44 Surgical - Exam - General well developed, well nourished, no distress - Eyes normal ocular movement, no icteric - ENT no hearing loss, no congestion - Neck no masses, trachea midline - Respiratory normal respiratory effort, clear to auscultation - Abdomen Abdomen: soft, non tender, no guarding, no rigid, no rebound - Integumentary no rash, no abnormal pigmentation - Neurologic no disoriented, no combative - Psychiatric oriented to time, oriented to person, oriented to place, speech is normal, memory intact Assessment and Plan Assessment: Impression: cap Plan: space oar by Dr Gibson prior to ebrt.
[~2023-02-15 10:03] MED LIST changes: -ALPRAZolam 0.25 MG TAB PO PRN; -ALPRAZolam 0.5 MG TAB PO PRN; -ASPIRIN 81 MG ONE; -ASPIRIN 81 MG PO SCH; -ATORVASTATIN 80 MG TAB PO SCH; -ATORVASTATIN 80 MG TAB PO STA; -CANAGLIFLOZIN 300 MG PO SCH; -FLUTICASONE 50MCG/SPRAY NASAL 16GM EA NOSTRIL SCH; -FLUoxetine HCL 20 MG CAP PO SCH; -HEPARIN SODIUM 1,000 UN/ML (10ML VL) IV ONE; -HEPARIN SODIUM 1,000 UN/ML (10ML VL) ONE; -INSULIN DETEMIR (LEVEMIR) 100 UNIT/ML SYR SQ SCH; -INSULIN LISPRO 5 UNIT SQ SCH; -IOPAMIDOL-370 100ML BTL INJ ONE; +LACTATED RINGERS 1,000 ML IV SCH; +LIDOCAINE 1% (10MG/ML) FOR IV START INTRADERMA PRN; -LIDOCAINE 1% INJ 10MG/ML (20 ML MDV) ONE; -LIDOCAINE 1% INJ 10MG/ML (20 ML MDV) SQ ONE; -METOPROLOL SUCCINATE (ER) 50 MG TAB.ER.24H PO SCH; -NITROGLYCERIN SL TABS 0.4 MG TAB SUBLINGUAL PRN; -NON FORMULARY DRUG (Exenatide Microspheres [Bydureon Pen] 2 MG) SQ SCH; -PIOGLITAZONE 15 MG TAB PO SCH; -RX INFO: IV CONTRAST WAS GIVEN 1 EACH MISC MISCELLANE PRN; -SODIUM CHLORIDE 0.9% 1,000 ML IV SCH; -SODIUM CHLORIDE 0.9% 1,000 ML in EMPTY BAG 1 BAG IV ONE; -TAMSULOSIN 0.4 MG CAP.ER.24H PO SCH; -VERAPAMIL 2.5 MG/ML 2 ML AMP ONE; -VERAPAMIL SYRINGE (5 MG/10 ML) INTRAARTER ONE; -fentaNYL (PF) 50 MCG/ML 2 ML AMP IV ONE; -fentaNYL (PF) 50 MCG/ML 2 ML AMP ONE; -tiZANidine 4 MG TAB PO PRN; -traMADol 50 MG TAB PO SCH
[2023-02-15 10:57] VITALS: RESP 16; TEMP 97.1
[2023-02-15 11:12] LABS: Glucose,Whole Blood 112 mg/dL (70-110)
[2023-02-15] MEDS ORDERED: PROPOFOL 10 MG/ML 20 ML VIAL IV ONE (13:08)
[2023-02-15] MEDS ORDERED: KETAMINE 10 MG/ML 20 ML VIAL ONE (13:08)
[2023-02-15] MEDS ORDERED: MIDAZOLAM 2 MG/2 ML VIAL ONE (13:08)
[2023-02-15] MEDS ORDERED: fentaNYL (PF) 50 MCG/ML 2 ML AMP ONE (13:08)
[2023-02-15] MEDS ORDERED: LIDOCAINE 2% INJ 20 MG/ML SQ ONE ×2 (13:11→13:23)
--- NOTE | 2023-02-15 13:32 | P.OP ---
Date of Procedure: 02/15/23 Preoperative Diagnosis: Adenocarcinoma of the prostate Postoperative Diagnosis: Same Procedure(s) Performed: SpaceOAR Implant Anesthesia: MAC Surgeon: Wilman Gibson Estimated Blood Loss (ml): 5 IV fluids (ml): 150 Pathology: none sent Condition: stable Disposition: PACU Indications for Procedure: The patient is a 72-year-old white male with recently diagnosed Gary 7 adenocarcinoma. He is being treated with IMRT and androgen deprivation therapy. He now comes for SpaceOAR implant to reduce the risk of radiation induced rectal toxicity. Operative Findings: Excellent separation created between prostate and rectum. Description of Procedure: The patient was taken to the operating room and placed in the dorsolithotomy position, with his legs supported in Hood stirrups. The external genitalia was prepped and draped sterilely. The Bruel and Kjaer transrectal ultrasound probe was placed intrarectally. The prostate was imaged. The probe was then placed within the stabilizing stand. A spinal needle was advanced under ultrasonic guidance to the level of the urogenital diaphragm, and lidocaine was used to infiltrate the tissues as the needle was withdrawn. Next, the SpaceOAR needle was passed through the midline of the perineum, 1-2 cm anterior to the anal opening. The needle was slowly advanced under ultrasonic guidance until the needle tip was located within the fat plane between the prostate and rectum, at the level of the mid prostate gland. The needle was confirmed to be midline on the axial imaging. A small amount of normal saline was injected for hydrodissection. Next, the SpaceOAR components were mixed and loaded into the Y connector per protocol. The Y connector was then connected to the needle, and the components were injected slowly over a course of approximately 12 seconds. A total of 10 ml was injected. Significant distance was created between the prostate and rectum, as desired. It should be noted that at no point was there any concern of rectal perforation. The needle was withdrawn, as well as the transrectal ultrasound probe, and the procedure was terminated. The patient tolerated the procedure well and was taken to the recovery room in stable condition.
[2023-02-15 13:59] VITALS: BP 147/73; PULSE 67
== END 2023-02-15 14:21 | disposition home or self-care (01) ==
LOC: OR 10:03
PROVIDERS: ATTEND Urology
DX: C61 Malignant neoplasm of prostate (principal); I25.10 Atherosclerotic heart disease of native coronary artery without angina pectoris; E11.9 Type 2 diabetes mellitus without complications; E78.5 Hyperlipidemia, unspecified; I10 Essential (primary) hypertension; I25.2 Old myocardial infarction; G47.30 Sleep apnea, unspecified; M19.90 Unspecified osteoarthritis, unspecified site; Z90.89 Acquired absence of other organs; Z98.84 Bariatric surgery status; Z95.5 Presence of coronary angioplasty implant and graft; Z87.891 Personal history of nicotine dependence; Z79.82 Long term (current) use of aspirin; Z79.84 Long term (current) use of oral hypoglycemic drugs; Z79.1 Long term (current) use of non-steroidal anti-inflammatories (NSAID); Z88.5 Allergy status to narcotic agent; Z88.0 Allergy status to penicillin; Z79.899 Other long term (current) drug therapy; Z79.810 Long term (current) use of selective estrogen receptor modulators (SERMs); Z80.9 Family history of malignant neoplasm, unspecified; Z79.4 Long term (current) use of insulin; Z88.8 Allergy status to other drugs, medicaments and biological substances
CPT/HCPCS: 55874; C1889; J2001; J2250; J0690; J3010; J2704

== ENCOUNTER → 2023-03-13 | Outpatient (CLI) | payer MEDICARE ==
--- NOTE | 2023-03-13 12:36 | XR ---
EXAMINATION TYPE: XR KUB DATE OF EXAM: 03/13/2023 COMPARISON: NONE HISTORY: Left-sided pain TECHNIQUE: One view abdominal series FINDINGS: The osseous structures are intact. The bowel gas pattern is nonspecific. There is a large calcificat ion involving the left abdomen of uncertain etiology. Bilateral hip arthropathy, lumbar spine degener ative changes and SI joint arthropathy noted. There is a double-J ureteral stent. No definite suspicious calcifications overlying the stent. Calcif ications in the left pelvis are likely vascular. Lap band noted. Metallic device overlying the lower left chest. IMPRESSION: 1. Nonspecific abdomen. Left ureteral stent noted with no suspicious calcifications overlying the st ent or left kidney.
== END | disposition home or self-care (01) ==
LOC: RADXRMAIN 12:03
PROVIDERS: ATTEND Urology
DX: N20.1 Calculus of ureter (principal); Z96.0 Presence of urogenital implants
CPT/HCPCS: 74018

== ENCOUNTER 2023-03-28 08:32 | Day surgery (SDC) | payer MEDICARE ==
--- NOTE | 2023-03-27 11:37 | P.GSHP ---
History of Present Illness H&P Date: 03/27/23 72 yo male known to me for prostate cancer being treated by active surveillance recently was in [place] where he was diagnosed with a 7mm left ureteral stone and uti with sepsis. He was given antibiotics and a stent was placed. He is back home and now comes for a left ureterocopy with stone and stent removal - Constitutional Constitutional: Denies chills, Denies fever - EENT Eyes: denies blurred vision, denies pain Ears, nose, mouth and throat: Denies headache, Denies sore throat - Cardiovascular Cardiovascular: Denies chest pain, Denies shortness of breath - Respiratory Respiratory: Denies cough, Denies 7 - Gastrointestinal Gastrointestinal: Denies abdominal pain, Denies diarrhea, Denies nausea, Denies vomiting - Genitourinary (Female) Genitourinary: Denies dysuria, Denies hematuria - Genitourinary (Male) Genitourinary: Denies dysuria, Denies hematuria - Musculoskeletal Musculoskeletal: Denies myalgias - Integumentary Integumentary: Denies pruritus, Denies rash - Neurological Neurological: Denies numbness, Denies weakness - Psychiatric Psychiatric: Denies anxiety, Denies depression - Endocrine Endocrine: Denies fatigue, Denies weight change Past Medical History Past Medical History: Cancer, Diabetes Mellitus, Hyperlipidemia, Hypertension, Myocardial Infarction (DE), Osteoarthritis (OA), Prostate Disorder, Skin Disorder Additional Past Medical History / Comment(s): degenerative arthritis, varicose veins, skin cancer, cellulitis x 2, kidney stones . [facility]. recent dx prostate cancer, starts radiation after kidney stone surgery. rash to groin treated with cream. Last Myocardial Infarction Date:: 2002 History of Any Multi-Drug Resistant Organisms: None Reported Past Surgical History: Adenoidectomy, Bariatric Surgery, Heart Catheterization With Stent, Joint Replacement, Tonsillectomy Additional Past Surgical History / Comment(s): vasectomy, lap band, neck fusion, cysts removed from testicles x 2, lypoma removed rt side of abdomen, TOTAL RT KN EE, SKIN CA REMOVED. C3-4-5 neck fusion. urinary stent Past Anesthesia/Blood Transfusion Reactions: No Reported Reaction Date of Last Stent Placement:: 2013 Smoking Status: Former smoker - Past Family History Father Family Medical History: Coronary Artery Disease (CAD), CVA/TIA, Deep Vein Thrombosis (DVT) Mother Family Medical History: Cancer Brother(s) Family Medical History: Cancer Additional Family Medical History / Comment(s): . Sister(s) Additional Family Medical History / Comment(s): Patient has 1 sister at age 83 from Alzheimer's dementia. Daughter(s) Additional Family Medical History / Comment(s): Patient has 2 daughters with no major medical problems. Medications and Allergies Home Medications Medication Instructions Recorded Confirmed Type Aspirin 81 mg PO HS 03/18/14 03/22/23 History Atorvastatin Calcium [Lipitor] 80 mg PO HS 03/18/14 03/22/23 History Metoprolol Succinate (ER) [Toprol 50 mg PO DAILY 03/18/14 03/22/23 History XL] ALPRAZolam [Xanax] 0.5 mg PO BID PRN 06/01/19 03/22/23 History FLUoxetine HCL [PROzac] 20 mg PO BID 06/01/19 03/22/23 History Meloxicam 15 mg PO DAILY 06/01/19 03/22/23 History Enalapril [Vasotec] 5 mg PO QAM 01/30/23 03/22/23 History Insulin Glargine,Hum.rec.anlog 20 units SQ HS 01/30/23 03/22/23 History [Toujeo Max Solostar] Insulin Lispro [humaLOG Kwikpen] 0 - 5 unit SQ W/BRKFST PRN 01/30/23 03/22/23 History Nystatin [Nystop] 1 applic TOPICAL Q3D 01/30/23 03/22/23 History Oxybutynin Chloride [oxyBUTYnin 10 mg PO HS 01/30/23 03/22/23 History chloride ER] Semaglutide [Ozempic] 1 mg SQ TH 01/30/23 03/22/23 History Tamsulosin [Flomax] 0.4 mg PO BID 01/30/23 03/22/23 History metFORMIN HCL [Glucophage] 1,000 mg PO BID 01/30/23 03/22/23 History Insulin Lispro [humaLOG Kwikpen] 0 - 8 unit SQ W/SUPPER PRN 02/14/23 03/22/23 History Unk Flonas Nasal [place] 1 spray NASAL DAILY PRN 03/22/23 03/22/23 History Allergies Allergy/AdvReac Type Severity Reaction Status Date / Time Penicillins Allergy Rash/Hives Verified 03/22/23 08:53 codeine AdvReac Severe Vomiting Verified 03/22/23 08:53 albuterol AdvReac Rapid Verified 03/22/23 08:53 Heart Rate(needed meds to bring hr down) Surgical - Exam - General well developed, well nourished, no distress - Eyes normal ocular movement, no icteric - ENT no hearing loss, no congestion - Neck no masses, trachea midline - Respiratory normal respiratory effort, clear to auscultation - Abdomen Abdomen: soft, non tender, no guarding, no rigid, no rebound - Integumentary no rash, no abnormal pigmentation - Neurologic no disoriented, no combative - Psychiatric oriented to time, oriented to person, oriented to place, speech is normal, memory intact Assessment and Plan Assessment: Impression: Left ureteral stone with stent Plan: cysto removal of catheter left, ureteroscopy with laser lithotripsy and stone removal
[~2023-03-28 08:32] MED LIST changes: +AMPICILLIN 1,000 MG in SODIUM CHLORIDE 0.9% 50 ML IVPB PRN; +DEXAMETHASONE SOD PHOSPHATE 4 MG/ML 1 ML VIAL IV ONE; +GENTAMICIN 140 MG in SODIUM CHLORIDE 0.9% 100 ML IVPB PRN; +HYDROmorphone 0.5 MG/0.5 ML SYRINGE IVP PRN; -LIDOCAINE 1% (10MG/ML) FOR IV START INTRADERMA PRN; +ONDANSETRON 4 MG/2 ML VIAL IVP ONE
--- NOTE | 2023-03-28 09:38 | XR ---
EXAMINATION TYPE: XR KUB DATE OF EXAM: 03/28/2023 COMPARISON: 03/13/2023 HISTORY: Kidney stones with pain TECHNIQUE: One view abdominal series FINDINGS: There is a left-sided double-J ureteral stent. There is a lap band port. Large area of calcification overlying the iliac crest may be in the soft tissues or intra-abdominal. Hypertrophic and degenerativ e changes spine. Arthropathy of the hips. No suspicious calcifications overlying the course of the ureteral stent. Calcifications in the pelvis appear to be related to vascular phleboliths. IMPRESSION: 1. Left-sided double-J ureteral stent with no definite suspicious calcifications overlying the stent.
[2023-03-28 09:46] VITALS: RESP 16; TEMP 97.2
[2023-03-28 09:56] LABS: Glucose,Whole Blood 226 mg/dL (70-110)
[2023-03-28] MEDS ORDERED: INSULIN ASPART (NovoLOG) 100 UNIT/ML VIAL SQ ONE (10:00)
[2023-03-28] MEDS ORDERED: MIDAZOLAM 2 MG/2 ML VIAL ONE (10:51)
[2023-03-28] MEDS ORDERED: PROPOFOL 10 MG/ML 20 ML VIAL IV ONE (10:51)
[2023-03-28] MEDS ORDERED: LIDOCAINE 2% INJ 20 MG/ML (2 ML VIAL) ONE (10:51)
[2023-03-28] MEDS ORDERED: SUCCINYLCHOLINE CHLORIDE 200 MG/10 ML VIAL IV ONE (10:51)
[2023-03-28] MEDS ORDERED: fentaNYL (PF) 50 MCG/ML 2 ML AMP ONE (10:51)
[2023-03-28] MEDS ORDERED: PHENYLEPHRINE-0.9% NACL SYG 1,000 MCG/10 ML SYRINGE ONE (10:51)
[2023-03-28 11:00] LABS: Glucose,Whole Blood 210 mg/dL (70-110)
--- NOTE | 2023-03-28 11:55 | P.OP ---
Date of Procedure: 03/28/23 Preoperative Diagnosis: Left ureteral calculus status post stent placement, history of urinary tract infection with sepsis Postoperative Diagnosis: Same Procedure(s) Performed: Cystoscopy, removal double-J catheter left, left ureteroscopy with laser lithot ripsy Anesthesia: BLANCA Surgeon: Greg Arreaga Estimated Blood Loss (ml): 0 Pathology: other (Stone) Condition: stable Disposition: PACU Indications for Procedure: Patient is 72. He has a history of prostate cancer and is being treated here [facility] with eventual radiation therapy. He was visiting [facility] when he dropped a stone into his left ureter area developed urinary tract infection with sepsis. The stent was placed. He returned the [place] I evaluated the patient. He comes for ureteroscopy and laser lithotripsy. The stone was not obviously seen on KUB. Description of Procedure: Patient brought to the operating suite. Given a general anesthetic. Placed lithotomy position with sterile prep and drape. Cystoscopy Foroblique lens and 21-[place] sheath identifies normal urethra. The prostatic urethra is somewhat inflamed. The bladder wall shows inflammation and a stent emanating from the left ureteral orifice. The stent is grasped and pulled to the urethral meatus. An 035 wires passed up into the kidney. The stent is removed. I passed the semirigid ureteroscope alongside the wire up the left ureter. I can only get about half way up the ureter. The stone is obviously seen. I removed the semirigid ureteroscope and pass a 78-50-[place] reentry sheath over the wire up to the UPJ. The inner sheath and wire removed. I passed the flexible ure teroscope into the kidney. A stone was found in the lower pole calyx. With the 272 laser probe the stone was broken into tiny fragments. I basket the largest fragments. I've looked throughout the complete collecting system and see no remaining stone. I do pullout ureteroscopy and see no remaining stone. At the end of the procedure the bladder is drained the patient is awakened and returned recovery room good condition. He'll be discharged home upon recovery and found the office in one week.
--- NOTE | 2023-03-28 12:22 | FL ---
Intraoperative/procedural fluoroscopic services were provided for cystoscopy and left renal calculus. Total fluoroscopy time is 12.9 seconds with a total of 2 submitted images to PACS. Total DAP 3.2431 Gycm2. Please see the operative note for further details.
[2023-03-28] MEDS ORDERED: INSULIN ASPART (NovoLOG) 100 UNIT/ML VIAL SQ SCH (12:30)
[2023-03-28 13:06] LABS: Glucose,Whole Blood 177 mg/dL (70-110)
[2023-03-28 13:57] VITALS: BP 162/70; PULSE 91
== END 2023-03-28 14:14 | disposition home or self-care (01) ==
LOC: OR 08:32
PROVIDERS: ATTEND Urology
DX: N20.1 Calculus of ureter (principal); Z87.442 Personal history of urinary calculi
CPT/HCPCS: 82365; 74018; 52356; C1769; J2250; J0330; J2405; J3010; J1580; J0290; J2704; J2001; J2371

== ENCOUNTER → 2024-07-14 | Outpatient (CLI) | payer MEDICARE ==
[2024-07-14 15:11] LABS: NT-Pro-B-Type Natriuretic Pept 3718 pg/mL (0-450)
[2024-07-14 15:15] LABS: ALT 25 U/L (10-49); AST 23 U/L (14-35); Albumin/Globulin Ratio 1.67 Ratio (1.60-3.17); Alkaline Phosphatase 81 U/L (41-126); BUN/Creat Ratio 20.38 Ratio (12.00-20.00); Blood Urea Nitrogen 16.3 mg/dL (9.0-27.0); Calcium 9.6 mg/dL (8.7-10.3); Carbon Dioxide 27.5 mmol/L (21.6-31.8); Chloride 105 mmol/L (96-109); Chol/HDL Ratio 2.51 Ratio; Globulin 2.4 g/dL (1.6-3.3); Glucose 127 mg/dL (70-110); LDL Cholesterol,Calculated 40.6 mg/dL (0.0-131.0); Potassium 4.5 mmol/L (3.5-5.5); Sodium 144 mmol/L (135-145); Total Bilirubin 1.2 mg/dL (0.3-1.2); Total Protein 6.4 g/dL (6.2-8.2); VLDL Calculation 15.94 mg/dL (5.00-40.00)
== END | disposition home or self-care (01) ==
LOC: LABWHC1 11:07
PROVIDERS: ATTEND Internal Medicine Interventional Cardiology
DX: I50.22 Chronic systolic (congestive) heart failure (principal); I25.5 Ischemic cardiomyopathy; E78.2 Mixed hyperlipidemia
CPT/HCPCS: 36415; 80053; 80061; 83880

== ENCOUNTER → 2024-07-16 | Day surgery (SDC) | payer MEDICARE ==
[~2024-07-16] MED LIST changes: +ALPRAZolam 0.25 MG TAB PO PRN; +ALPRAZolam 0.5 MG TAB PO PRN; -AMPICILLIN 1,000 MG in SODIUM CHLORIDE 0.9% 50 ML IVPB PRN; +ASPIRIN 81 MG PO SCH; +ATORVASTATIN 80 MG TAB PO SCH; +BENZOCAINE SPRAY 1 CAN TOPICAL PRN; -DEXAMETHASONE SOD PHOSPHATE 4 MG/ML 1 ML VIAL IV ONE; +DONEPEZIL 10 MG TAB PO SCH; +FLUoxetine HCL 20 MG CAP PO SCH; +FUROSEMIDE 20 MG TAB PO SCH; -GENTAMICIN 140 MG in SODIUM CHLORIDE 0.9% 100 ML IVPB PRN; +HEPARIN SODIUM,PORCINE (1 ML) 2,500 UNIT in SODIUM CHLORIDE 0.9% 250 ML IRRIGATION PRN; +HEPARIN SODIUM,PORCINE 10,000 UNIT in SODIUM CHLORIDE 0.9% 1,000 ML IRRIGATION PRN; -HYDROmorphone 0.5 MG/0.5 ML SYRINGE IVP PRN; +INSUL SQ SCH; +INSULIN GLARGINE HUM REC ANLOG 300 UNIT/ML SQ SCH; -LACTATED RINGERS 1,000 ML IV SCH; +METOPROLOL SUCCINATE (ER) 50 MG TAB.ER.24H PO SCH; +MIDAZOLAM 2 MG/2 ML VIAL IV PRN; +NITROGLYCERIN SL TABS 0.4 MG TAB SUBLINGUAL PRN; +NON FORMULARY DRUG (Empagliflozin [Jardiance] 25 MG Tablet) PO SCH; +NON FORMULARY DRUG (Magnesium [Magnesium] 200 MG Tablet) PO SCH; -ONDANSETRON 4 MG/2 ML VIAL IVP ONE; +RX INFO: IV CONTRAST WAS GIVEN 1 EACH MISC MISCELLANE PRN; +SODIUM CHLORIDE 0.9% 1,000 ML IV SCH; +TAMSULOSIN 0.4 MG CAP.ER.24H PO SCH; +[UNRECOGNIZED DRUG - OTHER] SQ SCH; +fentaNYL (PF) 50 MCG/ML 5 ML AMP IVP PRN; +lisinopriL 10 MG TAB PO SCH
[2024-07-16] MEDS: ATORVASTATIN 80 MG TAB PO STA (06:44)
[2024-07-16] MEDS: ASPIRIN 325 MG TAB PO STA (06:44)
[2024-07-16 06:53] VITALS: TEMP 97.5
[2024-07-16] MEDS: EMPTY BAG 1 BAG with SODIUM CHLORIDE 0.9% 1,000 ML IV ONE (06:57)
[2024-07-16] MEDS: IV FLUID CONTINUATION 1,000 ML IV ONE (06:57)
[2024-07-16 07:00] LABS: Glucose,Whole Blood 96 mg/dL (70-110)
[2024-07-16 07:20] LABS: Basophils % (A) 0 %; Eosinophils # (A) 0.1 k/uL (0-0.7); Eosinophils % (A) 3 %; HCT 37.7 % (39.0-53.0); HGB 12.4 gm/dL (13.0-17.5); Lymphocytes # (A) 0.9 k/uL (1.0-4.8); Lymphocytes % (A) 21 %; MCH 30.2 pg (25.0-35.0); MCHC 32.8 g/dL (31.0-37.0); MCV 92.2 fL (80.0-100.0); Mean Platelet Volume 8.5; Monocytes # (A) 0.4 k/uL (0-1.0); Monocytes % (A) 11 %; Neutrophils # (A) 2.6 k/uL (1.3-7.7); Neutrophils % (A) 64 %; Platelet Count 151 k/uL (150-450); RBC 4.09 m/uL (4.30-5.90); RDW 15.6 % (11.5-15.5); WBC 4.1 k/uL (3.8-10.6)
[2024-07-16] MEDS: fentaNYL (PF) 50 MCG/1 ML VIAL IVP ONE (07:33)
[2024-07-16] MEDS: MIDAZOLAM 2 MG/2 ML VIAL IVP ONE ×2 (07:33→07:36)
[2024-07-16] MEDS: BENZOCAINE SPRAY 1 EACH MM ONE (07:34)
[2024-07-16] MEDS: HEPARIN SODIUM,PORCINE 10,000 UNIT in SODIUM CHLORIDE 0.9% 1,000 ML IRRIGATION ONE (07:52)
[2024-07-16] MEDS: HEPARIN SODIUM,PORCINE (1 ML) 2,500 UNIT in SODIUM CHLORIDE 0.9% 250 ML IRRIGATION ONE (07:52)
--- NOTE | 2024-07-16 07:55 | P.PCN ---
Date of Procedure: 07/16/24 Description of Procedure: Indication: Mitral regurgitation Procedure Description: After explaining the procedure to the patient, it's risk and complications, blood pressure, heart rate and O2 saturation were monitored. The throat was sprayed with Cetacaine. Patient received 3 mg intravenous Versed, 50 mcg intravenous fentanyl. The probe was introduced into the esophagus without difficulty. Images were obtained. Following that, the probe was removed. There was no immediate complication. Findings: Left atrial size is dilated, left atrial appendage is normal. Left ventricular size is normal. The overall left ventricular systolic function is impaired, ejection fraction appears to be in the range of 35 to 40%. The mitral valve revealed mild calcification of the leaflets but no prolapse. The aortic valve is a tricuspid valve with mild fibrocalcific changes. The tricuspid valve is normal. No pericardial effusion was noted. Contrast bubble study revealed no shunting across the interatrial septum. Doppler: Pulse wave and color Doppler were obtained, and revealed moderate severe central mitral regurgitation with mild tricuspid regurgitation and aortic regurgitation. There was no shunting by color Doppler study. Conclusion: 1. Dilated left atrium with normal appearance of the left atrial appendage 2. Moderate global hypokinesis of the left ventricle 3. Moderate to severe mitral regurgitation 4. Mild tricuspid regurgitation and aortic regurgitation 5. No shunting across the interatrial septum Duration of sedation: 15 minutes.
[2024-07-16] MEDS: LIDOCAINE 1% INJ 10MG/ML (20 ML MDV) SQ ONE (08:00)
[2024-07-16] MEDS: VERAPAMIL SYRINGE (5 MG/10 ML) INTRAARTER ONE (08:06)
[2024-07-16] MEDS: HEPARIN SODIUM 1,000 UN/ML (10ML VL) IVP ONE (08:21)
[2024-07-16 08:30] LABS: O2 Sat Blood Gas 96.2 %
[2024-07-16] MEDS: IOPAMIDOL-370 100ML BTL INJ ONE (08:31)
[2024-07-16 08:32] LABS: O2 Sat Blood Gas 67.2 %
[2024-07-16 08:33] LABS: O2 Sat Blood Gas 68.3 %
--- NOTE | 2024-07-16 08:59 | P.CARDCATH ---
Date of Procedure: 07/16/24 Description of Procedure: Cardiac Catheterization: The patient is a 73-year-old male with a known history of CAD status post multivessel stenting who has been complaining of progressive dyspnea and was found to have evidence of worsening cardiomyopathy and mitral regurgitation. Recommendations were made regarding cardiac catheterization, the risks and the complications were discussed with the patient who is in full understanding and agreement. Procedure Description: Patient was brought to cath laboratory technician in fasting semi-sedated state after receiving Fentanyl and Benadryl achieiving moderate conscious sedated state. Using Xylocaine Anesthesia and modified Seldinger technique, a 6-Kazakh sheath was introduced in the right radial artery . The intravenous access sheath in the right basilic vein was exchanged to a 6 [place] sheath. Right heart catheterization was performed using [place] catheter. Multiple samples and pressures were obtained. Cardiac output by thermodilution was calculated. Subsequently, selective coronary angiography was performed using a 5-Kazakh 3.5 bend Lillian catheter. Multiple views of the coronary artery including hemiaxial views were obtained. The 6 Kazakh pigtail catheter was used to cross the aortic valve and LVEDP was calculated. 30 degree MITTAL view of the left ventricle was obtained. Following that, catheter and sheath were removed. Hemostasis was obtained with deployment of vascular band and compression of the brachial area. There was no immediate complication. Patient was returned to room in stable condition. Of note, the patient received a total of 5000 units of intravenous heparin as well as intra-arterial verapamil. Findings: Left main: This is a large size vessel, bifurcating into LAD and left circumflex, left main has no high-grade stenosis LAD: This is a large size vessel, reaching to the apex with a wraparound apex segment giving rise to a small diagonal branch and mid segment. The stented area in the mid LAD is patent with mild intimal disease throughout the vessel of 20 to 30% Left circumflex: This is a large nondominant vessel giving rise to 3 obtuse marginal branch. The first obtuse marginal branch has intimal disease of 30 to 40% the rest of the vessel has no high-grade stenosis RCA: This is a large dominant vessel, bifurcating distally to PDA and PLV the mid RCA has a stent that is patent there is mild intimal disease distal to the stent of 20 to 30%. The vessel is calcified. Left Ventriculogram: Performed in the 30 degree MITTAL view and revealed a dilated left ventricle with ejection fraction of 20 to 25% with global hypokinesis and 3+ mitral regurgitation Hemodynamics: Pulmonary artery saturation of 68%, right atrium 67%, arterial 96%. Cardiac output by thermodilution 5.5 L/min with an index of 2.5 L/min. By Shonna 6.2 L/min with an index of 2.8 L/min. Pulmonary artery systolic pressure of 60, diastolic of 18 with a mean of 35 mmHg pulmonary capillary wedge pressure A-wave of 25 V wave of 21 with a mean of 14 mmHg. Right ventricle systolic pressure of 58 with end-diastolic of 18 mmHg. Right atrium A wave of 15 V wave of 14 with a mean of 10 mmHg. Left ventricle end-diastolic pressure 18 to 20 mmHg. Conclusion: 1. Patent stent in the LAD and the RCA 2. Mild triple-vessel disease 3. Moderate pulmonary hypertension with elevated wedge pressure 4. Severe left ventricular systolic function with 3+ mitral regurgitation Recommendations: I have recommended to optimize medical therapy and continue to follow-up closely to see if there is any indications for mitral valve repair.. The findings and the recommendations were discussed with the patient and the family and they were in full understanding and agreement. Duration of sedation is 28 minutes.
[2024-07-16 11:34] VITALS: RESP 20
[2024-07-16 11:55] VITALS: BP 128/75; PULSE 73
== END | disposition home or self-care (01) ==
LOC: CATHCVL 05:46
PROVIDERS: ATTEND Internal Medicine Interventional Cardiology
DX: I08.3 Combined rheumatic disorders of mitral, aortic and tricuspid valves (principal); I27.20 Pulmonary hypertension, unspecified; I25.5 Ischemic cardiomyopathy; I25.10 Atherosclerotic heart disease of native coronary artery without angina pectoris; Z95.5 Presence of coronary angioplasty implant and graft; I10 Essential (primary) hypertension; E11.9 Type 2 diabetes mellitus without complications; E78.2 Mixed hyperlipidemia; Z79.891 Long term (current) use of opiate analgesic; Z79.82 Long term (current) use of aspirin; Z79.4 Long term (current) use of insulin; Z79.84 Long term (current) use of oral hypoglycemic drugs; Z79.85 Long-term (current) use of injectable non-insulin antidiabetic drugs
CPT/HCPCS: 93312; 93320; 93325; 93460; 85018; 82810; 85025; C1769 ×2; C1894; C1751; J2250; J1644 ×3; J2003; Q9967; J3010

== ENCOUNTER → 2024-07-24 | Outpatient (CLI) | payer MEDICARE ==
[2024-07-24 15:29] LABS: NT-Pro-B-Type Natriuretic Pept 4166 pg/mL (0-450)
[2024-07-24 15:32] LABS: Blood Urea Nitrogen 18.9 mg/dL (9.0-27.0); Calcium 9.9 mg/dL (8.7-10.3); Carbon Dioxide 28.4 mmol/L (21.6-31.8); Chloride 102 mmol/L (96-109); Glucose 157 mg/dL (70-110); Potassium 4.3 mmol/L (3.5-5.5); Sodium 142 mmol/L (135-145)
== END | disposition home or self-care (01) ==
LOC: LABWHC1 10:01
PROVIDERS: ATTEND Internal Medicine Interventional Cardiology
DX: I25.5 Ischemic cardiomyopathy (principal); I34.0 Nonrheumatic mitral (valve) insufficiency; R06.02 Shortness of breath
CPT/HCPCS: 36415; 80048; 83880